=== PATIENT | male | born 1955 | race African-American/Black ===

== ENCOUNTER 2018-02-04 16:14 | Emergency (ER) | payer OTHER ==
--- NOTE | 2018-02-04 17:16 | RAD REPORT ---
EXAM DESCRIPTION: RAD - Chest Pa And Lat (2 Views) - 02/04/2018 5:04 pm CLINICAL HISTORY: Chest pain. COMPARISON: 10/20/2017 FINDINGS: Left upper lobe pulmonary mass is again noted, increased mildly in size since comparative study. The patient has a known history of lung carcinoma. The heart is mildly moderately enlarged. A focal infiltrate typical of pneumonia not seen. Old left posterior sixth rib fracture.
--- NOTE | 2018-02-04 17:28 | ER ---
Nurse's Notes [facility] Name: Kait Anton Age: 62 yrs Sex: Male : 1955 Arrival Date: 02/04/2018 Time: 16:18 Bed 7 Private MD: John He Diagnosis: Dorsalgia Presentation: 02/04 16:22 Presenting complaint: Patient states: I think I have a pinched nerve on my right la1 shoulder area. Transition of care: patient was not received from another setting of care. Onset of symptoms was February 04, 2018. Care prior to arrival: None. 16:22 Method Of Arrival: Wheelchair la1 16:22 Acuity: SEA 4 la1 Historical: - Allergies: 16:23 Neulasta; la1 - PMHx: 16:23 Adenocarcinoma - remission; Diabetes - NIDDM; Hypertension; la1 - Immunization history:: Adult Immunizations up to date. - Social history:: Smoking status: Patient/guardian denies using tobacco. Screenin:25 Abuse screen: Denies threats or abuse. Denies injuries from another. Nutritional jl7 screening: No deficits noted. Tuberculosis screening: No symptoms or risk factors identified. Fall Risk None identified. Assessment: 16:25 General: Appears in no apparent distress. uncomfortable, Behavior is calm, cooperative, jl7 appropriate for age. Pain: Complains of pain in right scapular area Pain radiates to right tricep and right elbow Pain currently is 5 out of 10 on a pain scale. at worst was 9 out of 10 on a pain scale. Quality of pain is described as sharp, Pain began 2-3 days ago. Is intermittent. Neuro: Level of Consciousness is awake, alert, obeys commands, Oriented to person, place, time, situation. Cardiovascular: Patient's skin is warm and dry. Respiratory: Airway is patent Respiratory effort is even, unlabored, Respiratory pattern is regular, symmetrical. Derm: Skin is dry, Skin is normal, Skin temperature is warm. Musculoskeletal: Range of motion: limited in right shoulder. 17:30 Reassessment: Dr. Correa at bedside discussing plan of care. jl7 Vital Signs: 16:23 BP 187 / 100; Pulse 77; Resp 16; Temp 98.3; Pulse Ox 100% on R/A; Weight 127.01 kg; la1 Height 6 ft. 2 in. (187.96 cm); 17:21 BP 182 / 88; Pulse 79; Resp 16; Pulse Ox 98% on R/A; jl7 16:23 Body Mass Index 35.95 (127.01 kg, 187.96 cm) la1 ED Course: 16:18 Patient arrived in ED. mr 16:18 John He DO is Private Physician. mr 16:23 Triage completed. la1 16:23 Arm band placed on left wrist. la1 16:24 Jack Howe, DORITA is Primary Nurse. jl7 16:24 Cornelio Correa MD is Attending Physician. gs 16:25 Patient has correct armband on for positive identification. Bed in low position. Call jl7 light in reach. Side rails up X 1. Pulse ox on. NIBP on. 17:01 X-ray completed. Patient tolerated procedure well. la2 17:04 Chest Pa And Lat (2 Views) XRAY In Process Unspecified. EDMS 17:27 David Grey MD is Referral Physician. 17:30 No provider procedures requiring assistance completed. Patient did not have IV access jl7 during this emergency room visit. Administered Medications: 17:34 Not Given (Patient Refused): [place] 5 mg-325 mg 1 tabs PO once jl7 Outcome: 17:27 Discharge ordered by . 17:37 Discharged to home ambulatory. jl7 17:37 Condition: stable 17:37 Discharge instructions given to patient, family, Instructed on discharge instructions, follow up and referral plans. medication usage, Demonstrated understanding of instructions, follow-up care, medications, Prescriptions given X 1. 17:37 Patient left the ED. jl7 Signatures: Dispatcher [employer] EDOR Tammie Gibbs Lee, RN RN la1 Jack Howe, DORITA KEVIN jl7 Cornelio Correa MD MD Aida Deluca la2
--- NOTE | 2018-02-04 17:28 | EDPHYS ---
Physician Documentation [facility] Name: Kait Anton Age: 62 yrs Sex: Male : 1955 Arrival Date: 02/04/2018 Time: 16:18 Bed 7 Private MD: John He ED Physician Cornelio Correa HPI: 02/04 17:21 This 62 yrs old Black Male presents to ER via Wheelchair with complaints of Shoulder gs Pain, Arm Pain. 17:21 The patient or guardian complains of pain. right scapular area. Context: The problem gs was sustained at home, resulted from repetitive motion, lifting, The patient reports no decreased range of motion. The patient reports no obvious deformity. Onset: The symptoms/episode began/occurred 4 day(s) ago. Modifying factors: the symptoms are alleviated by lying down, The symptoms are aggravated by movement. Associated signs and symptoms: Pertinent negatives: chest pain, diaphoresis, dyspnea, neck pain, tingling. Severity of symptoms: At their worst the symptoms were moderate, in the emergency department the symptoms are unchanged. The patient has experienced similar episodes in the past, a few times. Historical: - Allergies: 16:23 Neulasta; la1 - PMHx: 16:23 Adenocarcinoma - remission; Diabetes - NIDDM; Hypertension; la1 - Immunization history:: Adult Immunizations up to date. - Social history:: Smoking status: Patient/guardian denies using tobacco. ROS: 17:21 All other systems are negative. gs Exam: 17:21 Eyes: Pupils equal round and reactive to light, extra-ocular motions intact. Lids and gs lashes normal. Conjunctiva and sclera are non-icteric and not injected. Cornea within normal limits. Periorbital areas with no swelling, redness, or edema. ENT: Nares patent. No nasal discharge, no septal abnormalities noted. Tympanic membranes are normal and external auditory canals are clear. Oropharynx with no redness, swelling, or masses, exudates, or evidence of obstruction, uvula midline. Mucous membranes moist. Chest/axilla: Normal chest wall appearance and motion. Nontender with no deformity. No lesions are appreciated. Cardiovascular: Regular rate and rhythm with a normal S1 and S2. No gallops, murmurs, or rubs. Normal PMI, no JVD. No pulse deficits. Respiratory: Lungs have equal breath sounds bilaterally, clear to auscultation and percussion. No rales, rhonchi or wheezes noted. No increased work of breathing, no retractions or nasal flaring. Abdomen/GI: Soft, non-tender, with normal bowel sounds. No distension or tympany. No guarding or rebound. No evidence of tenderness throughout. Skin: Warm, dry with normal turgor. Normal color with no rashes, no lesions, and no evidence of cellulitis. MS/ Extremity: Pulses equal, no cyanosis. Neurovascular intact. Full, normal range of motion. Neuro: Awake and alert, GCS 15, oriented to person, place, time, and situation. Cranial nerves II-XII grossly intact. Motor strength 5/5 in all extremities. Sensory grossly intact. Cerebellar exam normal. Normal gait. 17:21 Constitutional: The patient appears alert, awake. 17:21 Back: pain, that is moderate, of the right scapular area, reproduces pain. Vital Signs: 16:23 BP 187 / 100; Pulse 77; Resp 16; Temp 98.3; Pulse Ox 100% on R/A; Weight 127.01 kg; la1 Height 6 ft. 2 in. (187.96 cm); 17:21 BP 182 / 88; Pulse 79; Resp 16; Pulse Ox 98% on R/A; jl7 16:23 Body Mass Index 35.95 (127.01 kg, 187.96 cm) la1 MDM: 16:31 Patient medically screened. gs 17:21 Differential diagnosis: herniated disk, muscle strain, extension of ca. Data reviewed: vital signs, nurses notes. Response to treatment: the patient's symptoms have markedly improved after treatment, and as a result, I will discharge patient. 02/04 16:32 Order name: Chest Pa And Lat (2 Views) XRAY; Complete Time: 17:17 gs Administered Medications: 17:34 Not Given (Patient Refused): [place] 5 mg-325 mg 1 tabs PO once jl7 Disposition: 02/04/18 17:27 Discharged to Home. Impression: Dorsalgia. - Condition is Stable. - Discharge Instructions: Back Pain, Adult. - Prescriptions for Prednisone 20 mg Oral Tablet - take 1 tablet by ORAL route once daily for 5 days; 5 tablet. - Medication Reconciliation Form, Thank You Letter, Antibiotic Education, Prescription Opioid Use form. - Follow up: Private Physician; When: 2 - 3 days; Reason: Re-evaluation by your physician. Follow up: David Grey MD; When: 2 - 3 days; Reason: Re-evaluation by your physician. Signatures: Dispatcher [employer] EDIvan Sandoval RN RN la1 Jack Howe RN RN jl7 Cornelio Correa MD MD
[2018-02-04 17:42] VITALS: TEMP 98.3
[2018-02-04 17:43] VITALS: BP 182/88; O2SAT 98
== END 2018-02-04 17:37 | disposition home or self-care (01) ==
LOC: ER 16:14
DX: M54.9 Dorsalgia, unspecified (principal); I10 Essential (primary) hypertension; X50.9XXA Other and unspecified overexertion or strenuous movements or postures, initial encounter; Y93.89 Activity, other specified; Y92.009 Unspecified place in unspecified non-institutional (private) residence as the place of occurrence of the external cause; Z88.8 Allergy status to other drugs, medicaments and biological substances
CPT/HCPCS: 71046; 99283

== ENCOUNTER 2019-12-10 10:37 | Observation (INO) | payer OTHER ==
--- OUTSIDE RECORDS SUMMARY | 2019-12-10 10:39 | XMS REPORT ---
:1955 [facility] Address [address] [place] [address] Dr. Quiñones [address] [place] [id number] Care Team Providers Name Role Phone Unavailable Unavailable Unavailable Problems This patient has no known problems. Allergies, Adverse Reactions, Alerts This patient has no known allergies or adverse reactions. Medications This patient has no known medications.
[2019-12-10] MEDS ORDERED: KETOROLAC 30 MG/ML INJ ONE (11:49)
[2019-12-10] MEDS ORDERED: NA CHLORIDE 0.9% 500 ML ONE (11:49)
[2019-12-10 12:14] LABS: Absolute Lymphocytes (CBC) 1.5 K/uL (0.7-4.9); Basophils % 0.4 % (0-1.3); Hematocrit 44.9 % (39.6-49.0); Lymphocytes % 10.8 % (15.3-44.8); RBC Red Blood Cell Count 5.22 M/uL (4.33-5.43)
--- NOTE | 2019-12-10 12:15 | RAD REPORT ---
EXAM DESCRIPTION: RAD - Chest Single View - 12/10/2019 11:47 am CLINICAL HISTORY: COUGH, known left-side lung carcinoma COMPARISON: Chest Pa And Lat (2 Views) dated 02/04/2018; Thorax W/ Con dated 09/12/2019 TECHNIQUE: AP portable chest image was obtained 12/10/2019 11:47 am . FINDINGS: Chronic interstitial pattern present in the right lung field. No acute right lung parenchy mal process. Trachea remains in the midline. Left hemithorax volume reduction is present similar to t he CT study. There is irregular parenchymal stranding in the upper left lung field extending from the aortic arch level to the lateral pleural margin. These findings are not clearly different from garrett rison. No acute finding in the left lung base. Heart size is normal. Right-side vasculature within normal limits. Left-side vasculature obscured by chronic pleural and parenchymal changes. Elevated left mainstem bronchus is related to surgery. No m easurable pleural effusion and no pneumothorax. No acute bony abnormality seen. No acute aortic findi ngs suspected. IMPRESSION: Chronic left-side pleural and parenchymal changes similar to September 2019 CT imaging. No acute findings seen.
[2019-12-10 12:18] LABS: Protime INR 1.13
[2019-12-10 12:31] LABS: Albumin 3.2 g/dL (3.4-5.0); Bilirubin Direct 0.2 mg/dL (0-0.2); Bilirubin Total 0.8 mg/dL (0.2-1.0); Potassium 4.2 mmol/L (3.5-5.1); Protein, Total 7.8 g/dL (6.4-8.2); Troponin (Emerg Dept Use Only) 0.11 ng/mL (0.0-0.045)
--- NOTE | 2019-12-10 13:34 | EDPHYS ---
Physician Documentation [facility] Name: Kait Anton Age: 64 yrs Sex: Male : 1955 Arrival Date: 12/10/2019 Time: 10:39 Bed 19 Private MD: Sera Coburn ED Physician Jose Delgado HPI: 12/10 13:36 This 64 yrs old Black Male presents to ER via Ambulatory with complaints of pneumonia. kdr 13:36 The patient or guardian reports difficulty breathing, flu symptoms, arthralgias, kdr low-grade fever, myalgias, no appetite. Onset: The symptoms/episode began/occurred gradually, 3 day(s) ago. Modifying factors: The symptoms are alleviated by nothing. the symptoms are aggravated by activity. 17:03 Associated signs and symptoms: Pertinent positives: nausea, General malaise. Severity kdr of symptoms: At their worst the symptoms were mild moderate just prior to arrival, in the emergency department the symptoms are unchanged. The patient has not experienced similar symptoms in the past. The patient has not recently seen a physician. The patient is feeling poorly in general without focal c/o. He is concerned that he may have pneumonia. He has had a lobe-ectomy of his left lung and has generalized anterior CP (more right than left).. Historical: - Allergies: 10:45 Neulasta; ch - Home Meds: 10:45 aspirin 81 mg Oral chew once daily [Active]; Azopt 1 % ophthalmic drps 1 drop 3 times ch per day [Active]; Combigan 0.2-0.5 % ophthalmic drop 1 drop every 12 hours [Active]; Lumigan 0.01 % ophthalmic drop [Active]; Metformin Oral [Active]; Metoprolol Tartrate Oral [Active]; valsartan Oral [Active]; - PMHx: 10:45 Adenocarcinoma - remission; Diabetes - NIDDM; Hypertension; lung ca- part of L lung ch rmoved and re grafted; Glaucoma; - PSHx: 10:45 lung; ch - Immunization history:: Adult Immunizations up to date, Flu vaccine is up to date. - Coronavirus screen:: The patient has NOT traveled to [place], [place], or [place] in the past 14 days. The patient has NOT had contact with known/suspected case of Coronavirus?. - Social history:: Smoking status: Patient denies any tobacco usage or history of. Patient uses alcohol, occasionally. - Ebola Screening: : Patient negative for fever greater than or equal to 101.5 degrees Fahrenheit, and additional compatible Ebola Virus Disease symptoms Patient denies exposure to infectious person Patient denies travel to an Ebola-affected area in the 21 days before illness onset No symptoms or risks identified at this time. ROS: 17:03 Constitutional: Negative for fever, chills, and weight loss, Eyes: Negative for injury, kdr pain, redness, and discharge, Neck: Negative for injury, pain, and swelling, Cardiovascular: Negative for chest pain, palpitations, and edema, Abdomen/GI: Negative for abdominal pain, nausea, vomiting, diarrhea, and constipation, Back: Negative for injury and pain, : Negative for injury, bleeding, discharge, and swelling, MS/Extremity: Negative for injury and deformity, Skin: Negative for injury, rash, and discoloration, Neuro: Negative for headache, weakness, numbness, tingling, and seizure activity. Psych: Negative for depression, anxiety, suicide ideation, homicidal ideation, and hallucinations, Allergy/Immunology: Negative for hives, rash, and allergies, Endocrine: Negative for neck swelling, polydipsia, polyuria, polyphagia, and marked weight changes, Hematologic/Lymphatic: Negative for swollen nodes, abnormal bleeding, and unusual bruising. 17:03 Respiratory: Positive for cough, with no reported sputum, dyspnea on exertion, shortness of breath, on exertion. Negative for hemoptysis, orthopnea, pleurisy. Exam: 17:03 Constitutional: This is a well developed, well nourished patient who is awake, alert, kdr and in no acute distress. Head/Face: Normocephalic, atraumatic. Eyes: Pupils equal round and reactive to light, extra-ocular motions intact. Lids and lashes normal. Conjunctiva and sclera are non-icteric and not injected. Cornea within normal limits. Periorbital areas with no swelling, redness, or edema. Neck: Trachea midline, no thyromegaly or masses palpated, and no cervical lymphadenopathy. Supple, full range of motion without nuchal rigidity, or vertebral point tenderness. No Meningismus. Chest/axilla: Normal chest wall appearance and motion. Nontender with no deformity. No lesions are appreciated. Cardiovascular: Regular rate and rhythm with a normal S1 and S2. No gallops, murmurs, or rubs. Normal PMI, no JVD. No pulse deficits. Respiratory: Lungs have equal breath sounds bilaterally, clear to auscultation and percussion. No rales, rhonchi or wheezes noted. No increased work of breathing, no retractions or nasal flaring. Abdomen/GI: Soft, non-tender, with normal bowel sounds. No distension or tympany. No guarding or rebound. No evidence of tenderness throughout. Back: No spinal tenderness. No costovertebral tenderness. Full range of motion. Skin: Warm, dry with normal turgor. Normal color with no rashes, no lesions, and no evidence of cellulitis. MS/ Extremity: Pulses equal, no cyanosis. Neurovascular intact. Full, normal range of motion. Neuro: Awake and alert, GCS 15, oriented to person, place, time, and situation. Cranial nerves II-XII grossly intact. Motor strength 5/5 in all extremities. Sensory grossly intact. Cerebellar exam normal. Normal gait. Psych: Awake, alert, with orientation to person, place and time. Behavior, mood, and affect are within normal limits. Vital Signs: 10:45 BP 106 / 64; Pulse 89; Resp 16; Temp 99.6; Pulse Ox 98% on R/A; Weight 130.18 kg; ch Height 6 ft. 2 in. (187.96 cm); Pain 9/10; 12:00 BP 108 / 68; Pulse 84; Resp 17; Pulse Ox 94% on R/A; bp 12:41 BP 94 / 65; Pulse 80; Resp 14; Pulse Ox 98% ; bp 13:57 BP 117 / 52; Pulse 78; Resp 16; Pulse Ox 97% ; bp 15:09 BP 106 / 61; Pulse 79; Resp 16; Pulse Ox 94% ; bp 15:46 BP 112 / 71; Pulse 83; Resp 16; Pulse Ox 95% ; bp 10:45 Body Mass Index 36.85 (130.18 kg, 187.96 cm) ch MDM: 13:33 Patient medically screened. kdr 17:03 Data reviewed: vital signs, nurses notes, lab test result(s), radiologic studies. kdr Counseling: I had a detailed discussion with the patient and/or guardian regarding: the historical points, exam findings, and any diagnostic results supporting the discharge/admit diagnosis, lab results, radiology results, the need for further work-up and treatment in the hospital. 12/10 11:22 Order name: Amylase, Serum kdr 12/10 11:22 Order name: Basic Metabolic Panel kdr 12/10 11:22 Order name: Blood Culture Adult (2) kdr 12/10 11:22 Order name: CBC with Diff kdr 12/10 11:22 Order name: Ckmb kdr 12/10 11:22 Order name: CPK kdr 12/10 11:22 Order name: Lactate kdr 12/10 11:22 Order name: LFT's kdr 12/10 11:22 Order name: Lipase kdr 12/10 11:22 Order name: Procalcitonin kdr 12/10 11:22 Order name: Protime (+inr) kdr 12/10 11:22 Order name: Ptt, Activated kdr 12/10 11:22 Order name: Troponin (emerg Dept Use Only) kdr 12/10 11:14 Order name: CXR XRAY kdr 12/10 12:16 Order name: CBC with Automated Diff; Complete Time: 12:45 EDMS 12/10 12:19 Order name: RAD; Complete Time: 12:45 EDMS 12/10 12:23 Order name: Protime (+INR); Complete Time: 12:45 EDMS 12/10 12:23 Order name: PTT, Activated Partial Thromb; Complete Time: 12:45 EDMS 12/10 12:31 Order name: Basic Metabolic Panel; Complete Time: 12:45 EDMS 12/10 12:32 Order name: Liver (Hepatic) Function; Complete Time: 12:45 EDMS 12/10 12:32 Order name: Creatine Phosphokinase; Complete Time: 12:45 EDMS 12/10 12:32 Order name: CKMB Creatine Kinase MB; Complete Time: 12:45 EDMS 12/10 12:32 Order name: Troponin (Emerg Dept Use Only); Complete Time: 12:45 EDMS 12/10 12:32 Order name: Amylase Level; Complete Time: 12:45 EDMS 12/10 12:32 Order name: Lipase; Complete Time: 12:45 EDMS 12/10 12:35 Order name: Lactate; Complete Time: 12:45 EDMS 12/10 12:48 Order name: Procalcitonin; Complete Time: 13:03 EDMS 12/10 13:56 Order name: Flu bp 12/10 14:40 Order name: Influenza Screen (A EDWI 12/10 11:22 Order name: Accucheck; Complete Time: 12:06 kdr 12/10 11:22 Order name: Cardiac monitoring; Complete Time: 12:06 kdr 12/10 11:22 Order name: EKG - Nurse/Tech; Complete Time: 12:06 kdr 12/10 11:22 Order name: IV Saline Lock - Large Bore; Complete Time: 12:06 kdr 12/10 11:22 Order name: Labs collected and sent; Complete Time: 12:05 kdr 12/10 11:22 Order name: O2 Per Protocol; Complete Time: 12:05 kdr 12/10 11:22 Order name: O2 Sat Monitoring; Complete Time: 12:05 kdr Administered Medications: 12:00 Drug: NS 0.9% 500 ml Route: IV; Rate: bolus; Site: right antecubital; bp 12:42 Follow up: IV Status: Completed infusion; IV Intake: 500ml bp 12:00 Drug: TORadol - Ketorolac 15 mg Route: IVP; Site: right antecubital; bp 12:42 Follow up: Response: Pain is decreased bp 14:04 Drug: Aspirin Chewable Tablet 324 mg Route: PO; bp Disposition: 12/10/19 13:33 Hospitalization ordered by Coy Kumar for Observation. Preliminary diagnosis are Weakness, Shortness of breath, Malaise and fatigue, Non-ST elevation (NSTEMI) myocardial infarction. - Bed requested for Telemetry/MedSurg (observation). - Status is Observation. bp - Condition is Fair. - Problem is new. - Symptoms are unchanged. Signatures: Dispatcher [employer] [facility] Cheryl Hahn RN Sara Engel ch RN Jose Crooks MD MD kdr Peltier, Brian, RN RN bp Corrections: (The following items were deleted from the chart) 13:41 11:23 UA MICROSCOPIC+U.LAB.BRZ ordered. [facility] 13:48 13:33 Hospitalization Ordered by Coy Kumar for Observation. Preliminary diagnosis kdr is Weakness; Shortness of breath; Malaise and fatigue. Bed requested for Telemetry/MedSurg (observation). Status is Observation. Condition is Fair. Problem is new. Symptoms are unchanged. kdr 15:33 13:48 12/10/2019 13:33 Hospitalization Ordered by Coy Kumar for Observation. dw Preliminary diagnosis is Weakness; Shortness of breath; Malaise and fatigue; Non-ST elevation (NSTEMI) myocardial infarction. Bed requested for Telemetry/MedSurg (observation). Status is Observation. Condition is Fair. Problem is new. Symptoms are unchanged. kdr 16:30 15:33 12/10/2019 13:33 Hospitalization Ordered by Coy Kumar for Observation. bp Preliminary diagnosis is Weakness; Shortness of breath; Malaise and fatigue; Non-ST elevation (NSTEMI) myocardial infarction. Bed requested for Telemetry/MedSurg (observation). Status is Observation. Condition is Fair. Problem is new. Symptoms are unchanged. dw
--- NOTE | 2019-12-10 13:34 | ER ---
Nurse's Notes [facility] Name: Kait Anton Age: 64 yrs Sex: Male : 1955 Arrival Date: 12/10/2019 Time: 10:39 Bed 19 Private MD: Sera Coburn Diagnosis: Weakness;Shortness of breath;Malaise and fatigue;Non-ST elevation (NSTEMI) myocardial infarction Presentation: 12/10 10:42 Presenting complaint: Patient states: sob, congestion, cough, sweats, fevers on and ch off. feels like I have pneumonia. hurts when I cough. Transition of care: patient was not received from another setting of care. Onset of symptoms was December 07, 2019. Risk Assessment: Do you want to hurt yourself or someone else? Patient reports no desire to harm self or others. Initial Sepsis Screen: Does the patient meet any 2 criteria? No. Patient's initial sepsis screen is negative. Does the patient have a suspected source of infection? No. Patient's initial sepsis screen is negative. Care prior to arrival: Medication(s) given: day quill and ny quill. 10:42 Method Of Arrival: Ambulatory 10:42 Acuity: SEA 3 ch Triage Assessment: 10:45 General: Appears in no apparent distress. uncomfortable, Behavior is calm, cooperative, ch appropriate for age. Pain: Complains of pain in body aches Pain currently is 9 out of 10 on a pain scale. Historical: - Allergies: 10:45 Neulasta; ch - Home Meds: 10:45 aspirin 81 mg Oral chew once daily [Active]; Azopt 1 % ophthalmic drps 1 drop 3 times ch per day [Active]; Combigan 0.2-0.5 % ophthalmic drop 1 drop every 12 hours [Active]; Lumigan 0.01 % ophthalmic drop [Active]; Metformin Oral [Active]; Metoprolol Tartrate Oral [Active]; valsartan Oral [Active]; - PMHx: 10:45 Adenocarcinoma - remission; Diabetes - NIDDM; Hypertension; lung ca- part of L lung ch rmoved and re grafted; Glaucoma; - PSHx: 10:45 lung; ch - Immunization history:: Adult Immunizations up to date, Flu vaccine is up to date. - Coronavirus screen:: The patient has NOT traveled to [place], [place], or [place] in the past 14 days. The patient has NOT had contact with known/suspected case of Coronavirus?. - Social history:: Smoking status: Patient denies any tobacco usage or history of. Patient uses alcohol, occasionally. - Ebola Screening: : Patient negative for fever greater than or equal to 101.5 degrees Fahrenheit, and additional compatible Ebola Virus Disease symptoms Patient denies exposure to infectious person Patient denies travel to an Ebola-affected area in the 21 days before illness onset No symptoms or risks identified at this time. Screenin:45 Abuse screen: Denies threats or abuse. Denies injuries from another. Nutritional bp screening: No deficits noted. Tuberculosis screening: No symptoms or risk factors identified. Fall Risk None identified. Assessment: 10:45 General: SEE TRIAGE NOTE. bp 12:00 Reassessment: PT STATES NO RELIEF OF S/S. VS STABLE ON MONITOR, IVF INFUSING, RESULTS bp PENDING FROM LABS. 13:15 Reassessment: POSITIVE TROPONIN NOTED ON LAB WORK. MD NOTIFIED. PT DENIES CHEST PAIN. bp 13:57 Reassessment: MD AT B/S, ADMIT INITIATED. VS STABLE ON MONITOR. bp 15:09 Reassessment: ADMIT IN PROCESS. PT SEEN BY ADMIT MD. ALL CURRENT ORDERS COMPLETED. bp Vital Signs: 10:45 BP 106 / 64; Pulse 89; Resp 16; Temp 99.6; Pulse Ox 98% on R/A; Weight 130.18 kg; ch Height 6 ft. 2 in. (187.96 cm); Pain 9/10; 12:00 BP 108 / 68; Pulse 84; Resp 17; Pulse Ox 94% on R/A; bp 12:41 BP 94 / 65; Pulse 80; Resp 14; Pulse Ox 98% ; bp 13:57 BP 117 / 52; Pulse 78; Resp 16; Pulse Ox 97% ; bp 15:09 BP 106 / 61; Pulse 79; Resp 16; Pulse Ox 94% ; bp 15:46 BP 112 / 71; Pulse 83; Resp 16; Pulse Ox 95% ; bp 10:45 Body Mass Index 36.85 (130.18 kg, 187.96 cm) ED Course: 10:39 Patient arrived in ED. as 10:40 Sera Coburn MD is Private Physician. as 10:43 Triage completed. 10:45 Jose Delgado MD is Attending Physician. kdr 10:45 Arm band placed on left wrist. Patient placed in an exam room, on a stretcher. ch 10:45 Patient has correct armband on for positive identification. Bed in low position. Call bp light in reach. Side rails up X2. Adult w/ patient. 11:12 Ilya Sun, RN is Primary Nurse. bp 11:46 X-ray completed. Portable x-ray completed in exam room. Patient tolerated procedure md1 well. 12:00 Inserted saline lock: 20 gauge in right antecubital area, using aseptic technique. bp Blood collected. 12:28 EKG done, by cardiopulmonary technician. reviewed by Jose Delgado MD. at1 13:19 CBC with Diff Sent. bp 13:19 Blood Culture Adult (2) Sent. bp 13:19 Amylase, Serum Sent. bp 13:19 Basic Metabolic Panel Sent. bp 13:19 Ptt, Activated Sent. bp 13:20 Protime (+inr) Sent. bp 13:20 Ckmb Sent. bp 13:20 CPK Sent. bp 13:21 Procalcitonin Sent. bp 13:21 Lipase Sent. bp 13:21 LFT's Sent. bp 13:21 Lactate Sent. bp 13:21 Troponin (emerg Dept Use Only) Sent. bp 13:32 Coy Kumar is Hospitalizing Provider. kdr 14:04 Flu Sent. bp 15:34 No provider procedures requiring assistance completed. Patient admitted, IV remains in bp place. Administered Medications: 12:00 Drug: NS 0.9% 500 ml Route: IV; Rate: bolus; Site: right antecubital; bp 12:42 Follow up: IV Status: Completed infusion; IV Intake: 500ml bp 12:00 Drug: TORadol - Ketorolac 15 mg Route: IVP; Site: right antecubital; bp 12:42 Follow up: Response: Pain is decreased bp 14:04 Drug: Aspirin Chewable Tablet 324 mg Route: PO; bp Intake: 12:42 IV: 500ml; Total: 500ml. bp Outcome: 13:33 Decision to Hospitalize by Provider. kdr 15:45 Admitted to Tele accompanied by tech, family with patient, via wheelchair, room 204, bp with chart, Report called to ANN-MARIE RN 15:45 Condition: stable 15:45 Instructed on the need for admit. 16:30 Patient left the ED. bp Signatures: Cheryl Hahn RN RN ch Jose Delgado MD MD [facility] Danya Huggins Amanda, visual merchandising specialist EKG Tat1 Ilya Sun RN RN bp Mary Elizabeth md1 Corrections: (The following items were deleted from the chart) 12:07 12:00 Reassessment: PT STATES NO RELIEF OF S/S. VS STABLE ON MONITOR, IVF INFUSING, bp RESULTS PENDING FROM LABS Patient denies pain at this time. bp
[2019-12-10] MEDS ORDERED: ASPIRIN 81 MG CHEWABLE TABLET ONE (13:58)
--- NOTE | 2019-12-10 15:37 | P.HP ---
Certification for Inpatient Patient admitted to: Observation With expected LOS: <2 Midnights Practitioner: I am a practitioner with admitting privileges, knowledge of patient current condition, hospital course, and medical plan of care. Services: Services provided to patient in accordance with Admission requirements found in Title 42 Section 412.3 of the Code of Federal Regulations Patient History Date of Service: 12/10/19 Reason for admission: Cough, general body pains History of Present Illness: [age]-year-old gentleman with a history of lung cancer status post left lung resection, chemotherapy and radiation therapy, now declared in remission presented to the ED with a complaint of generalized body pains, fever, chills, runny nose and flu-like symptoms. He also reports chest pain, pleuritic in nature and worse with cough. His chest x-ray in the ED demonstrated no acute disease. His troponin mildly elevated. EKG demonstrated no acute ischemic changes. The patient denies any history of coronary artery disease. He stated he is seen Dr. Pelletier and have undergone stress test in the past which came back negative. He has also had elevated troponin in the past. Patient was not requiring oxygen and was saturating well on room air. Patient is placed under observation for further management of flu-like symptoms, possible infective bronchitis and also rule out ACS. Allergies pegfilgrastim [From Neulasta] Allergy (Unverified 01/20/17 17:18) Unknown Home Medications: Aspirin [Aspirin EC 81 MG] 81 mg PO DAILY 07/13/16 Bimatoprost [Lumigan Opthalmic Drops] 25 drops EACH EYE BID 07/13/16 Brimonidine Tartrate/Timolol [Combigan 0.2%-0.5% Eye Drops] 10 ml EACH EYE BID 07/13/16 Metformin HCl [Glucophage] 500 mg PO BIDWM 07/13/16 Valsartan/Hydrochlorothiazide [Valsartan-Hctz 320-12.5 mg Tab] 1 each PO DAILY 07/13/16 Atorvastatin Calcium [Lipitor] 10 mg PO DAILY 09/20/16 Brinzolamide [Azopt] 1 drop EACH EYE BID 09/20/16 - Past Medical/Surgical History Diabetic: Yes -: glaucoma, niddm, htn, smoker, -: Lung cancer status post lung resection. -: prostate -: tonsilectomy -: Left lung resection. - Family History Mother -: Hypertension Notes: Colesterol, blood, Cloth Father -: Hypertension, Cancer - Social History Smoking Status: Former smoker Alcohol use: Yes CD- Drugs: No Caffeine use: Yes Review of Systems Other: General: No unintentional weight loss. Eyes: No eye discharge, CVS: No chest pain, no palpitation, no lightheadedness. GI: No abdominal pain, no nausea, no vomit, no constipation, no diarrhea. Genitourinary: No dysuria, no urinary frequency, no incontinence, no hematuria. Musculoskeletal: No joint pains, or joint swelling, no gait instability. Neurology: No headache, no asymmetric weakness, no problem with swallowing. Except as documented, all other systems reviewed and negative. Physical Examination - Physical Exam General: Alert, In no apparent distress, Oriented x3 HEENT: Mucous membr. moist/pink, Sclerae nonicteric Neck: Supple, JVD not distended Respiratory: Clear to auscultation bilaterally, Expiratory wheezes (Mild expiratory wheezes) Cardiovascular: No edema, Regular rate/rhythm, Normal S1 S2 Capillary refill: <2 Seconds Gastrointestinal: Normal bowel sounds, Soft and benign, Non-distended, No tenderness Musculoskeletal: No swelling, No erythema Integumentary: No rashes, No erythema Neurological: Normal speech, Normal strength at 5/5 x4 extr - Studies Laboratory Data (last 24 hrs) 12/10/19 12:00: PT 13.3 H, INR 1.13, APTT 35.1 12/10/19 12:00: WBC 14.2 H, Hgb 14.5, Hct 44.9, Plt Count 149 L 12/10/19 12:00: Sodium 140, Potassium 4.2, BUN 10, Creatinine 1.60 H, Glucose 173 H, Total Bilirubin 0.8, AST 12 L, ALT 28, Alkaline Phosphatase 92, Amylase 70, Lipase 73 Microbiology Data (last 24 hrs): 12/10/19 14:00 Nasopharnyx Influenza Type A Antigen Screen - Final 12/10/19 14:00 Nasopharnyx Influenza Type B Antigen Screen - Final Assessment and Plan - Problems (Diagnosis) (1) Acute bronchiolitis due to other infectious organisms Current Visit: Yes Status: Acute (2) Elevated troponin Current Visit: Yes Status: Acute (3) DM type 2 (diabetes mellitus, type 2) Current Visit: Yes Status: Acute (4) Acute renal failure Current Visit: Yes Status: Acute (5) Acute viral syndrome Current Visit: Yes Status: Acute - Plan Place under observation. I suspect elevated troponin is related to cardiac stress from acute viral syndrome Trend troponin Scheduled bronchodilators Oral prednisone IV Rocephin and Zithromax for infective bronchitis. Pain management as needed. Manage blood sugar with insulin sliding scale. - Advance Directives Does patient have a Living Will: No Does patient have a Durable POA for Healthcare: No
[2019-12-10] MEDS: INSULIN -REGULAR HUMAN 50 UNIT/0.5 ML ML SQ SCH ×2 (17:28→20:00)
[2019-12-10] MEDS ORDERED: ONDANSETRON 4 MG/2 ML VIAL IV PRN (17:28)
[2019-12-10] MEDS ORDERED: ACETAMINOPHEN 500 MG TAB PO PRN (17:28)
[2019-12-10 17:29] VITALS: BMI 36.8
[2019-12-10] MEDS: HEPARIN 5000 UNIT/ML 1 ML VIAL SQ SCH (17:58)
[2019-12-10] MEDS: CEFTRIAXONE/SWI 1gm 1 GM/10 ML SYR IVP SCH (17:58)
[2019-12-10] MEDS: AZITHROMYCIN IV 500 MG in NA CHLORIDE 0.9% 250 ML IVPB SCH (17:58)
[2019-12-10 18:46] LABS: Thyroid Stimulating Hormone 1.2 uIU/mL (0.360-3.740); Troponin I 0.09 ng/mL (0.0-0.045)
[2019-12-10] MEDS ORDERED: PNEUMOCOCCAL VACCINE 0.5 ML IMVAC ONE (21:00)
[2019-12-10] MEDS: ALBUTEROL 2.5 MG/3 ML NEB SOL NEB SCH (22:00)
[2019-12-10] MEDS: IPRATROPIUM BROM 0.5MG/2.5ML NEB SCH (22:00)
[2019-12-11] MEDS: HEPARIN 5000 UNIT/ML 1 ML VIAL SQ SCH ×2 (00:15→08:47)
[2019-12-11 00:56] LABS: Urine Appearance CLOUDY; Urine Blood NEGATIVE (NEG); Urine Color ORANGE; Urine Glucose NEGATIVE (NEG); Urine Protein 2+ (NEG); Urine Specific Gravity >=1.030 (1.005-1.030); Urine pH 5.5 (5.0-7.0)
[2019-12-11 01:01] LABS: Urine Microscopic Reflex ORDER UMIC
[2019-12-11 01:07] LABS: Urine Bilirubin NEGATIVE (NEG)
[2019-12-11] MEDS: IPRATROPIUM BROM 0.5MG/2.5ML NEB SCH ×3 (02:23→14:32)
[2019-12-11] MEDS: ALBUTEROL 2.5 MG/3 ML NEB SOL NEB SCH ×3 (02:23→14:32)
[2019-12-11 02:24] LABS: Calcium Oxalate Crystals- Ur FEW (NONE SEEN); Urine Bacteria 20-50 /HPF (NONE SEEN); Urine RBC <5 /HPF (NONE SEEN)
[2019-12-11 02:25] LABS: Urine Culture Reflex Order REFLEXED
[2019-12-11 05:48] LABS: Absolute Lymphocytes (CBC) 1.8 K/uL (0.7-4.9); Basophils % 0.4 % (0-1.3); Hematocrit 42.9 % (39.6-49.0); MPV 9.3 fL (7.6-11.3); RBC Red Blood Cell Count 5.01 M/uL (4.33-5.43)
[2019-12-11 06:13] LABS: Phosphorus 3.8 mg/dL (2.5-4.9)
[2019-12-11] MEDS: INSULIN -REGULAR HUMAN 50 UNIT/0.5 ML ML SQ SCH ×2 (07:30→11:30)
[2019-12-11] MEDS: AZITHROMYCIN IV 500 MG in NA CHLORIDE 0.9% 250 ML IVPB SCH (08:47)
[2019-12-11] MEDS: CEFTRIAXONE/SWI 1gm 1 GM/10 ML SYR IVP SCH (08:47)
[2019-12-11] MEDS ORDERED: predniSONE 20 MG TAB PO SCH (09:00)
--- NOTE | 2019-12-11 12:27 | EKG ---
Test Date: 2019-12-10 Test Time: 12:11:37 Continuity Tester: TERA MEASUREMENT RESULTS: Intervals: Rate: 84 NC: 154 QRSD: 90 QT: 378 QTc: 446 [place]: P: 73 NC: 154 QRS: -3 T: 94 INTERPRETIVE STATEMENTS: Normal sinus rhythm Nonspecific T wave abnormality Abnormal ECG Compared to ECG 12/19/2015 14:09:27 T-wave abnormality now present Left ventricular hypertrophy no longer present Early repolarization no longer present Electronically Signed On 12-11-19 12:26:42 IRON PLASTIC BULLET MAKER by Shade Pelletier
--- NOTE | 2019-12-11 12:33 | ECHO ---
HEIGHT: 6 ft 2 in WEIGHT: 287 lb 0 oz DATE OF STUDY: 12/11/[address]: nereida berg 2-DIMENSIONAL: YES M.MODE: YES DOPPLER: YES COLOR FLOW: YES TDS: PORTABLE: DEFINITY: BUBBLE STUDY: DIAGNOSIS: ELEVATED TROPONIN CARDIAC HISTORY: CATHERIZATION: NO SURGERY: NO PROSTHETIC VALVE: NO PACEMAKER: NO MEASUREMENTS (cm) DIASTOLIC (NORMALS) SYSTOLIC (NORMALS) IVSd 1.5 (0.6-1.2) LA Diam 4.6 (1.9-4.0) LVEF 60% LVIDd 4.2 (3.5-5.7) LVIDs 2.9 (2.0-3.5) %FS 32% LVPWd 1.5 (0.6-1.2) Ao Diam 3.1 (2.0-3.7) 2 DIMENSIONAL ASSESSMENT: RIGHT ATRIUM: NORMAL LEFT ATRIUM: DILATED RIGHT VENTRICLE: NORMAL LEFT VENTRICLE: LEFT VENTRICULAR HYPERTROPHY TRICUSPID VALVE: NORMAL MITRAL VALVE: NORMAL PULMONIC VALVE: NORMAL AORTIC VALVE: SCLEROSIS PERICARDIAL EFFUSION: NONE AORTIC ROOT: NORMAL LEFT VENTRICULAR WALL MOTION: NORMAL DOPPLER/COLOR FLOW: MILD AORTIC AND MITRAL REGURGITATION. NO AORTIC STENOSIS. IMPAIRED LEFT VENTRICULAR RELAXATION. COMMENTS: NORMAL LEFT VENTRICULAR EJECTION FRACTION. DILATED LEFT ATRIUM. LEFT VENTRICULAR HYPERTROPHY. AORTIC SCLEROSIS WITH NO AORTIC STENOSIS. MILD AORTIC AND MITRAL REGURGITATION. TECHNOLOGIST: CARLOS RODRIGUEZ
[2019-12-11 13:16] VITALS: BP 127/68; TEMP 97.3
[2019-12-11 16:05] VITALS: O2SAT 96
[2019-12-11] MEDS ORDERED: TIMOLOL EACH EYE SCH (21:00)
[2019-12-11] MEDS ORDERED: HOME MED 1 EA UNK (Brinzolamide [Azopt] 1 DROP) EACH EYE SCH (21:00)
[2019-12-11] MEDS ORDERED: ATORVASTATIN 10 MG TAB PO SCH (21:00)
[2019-12-11] MEDS ORDERED: BIMATOPROST OPHTH DROPS/2.5 ML BTL OPTH SCH (21:00)
[2019-12-11] MEDS ORDERED: BRIMONIDINE TARTRATE EACH EYE SCH (21:00)
--- NOTE | 2019-12-12 02:04 | DS ---
Date of Discharge: 12/11/2019 Consultants: None. Discharge Diagnoses: 1.Acute bronchitis. 2.Elevated troponin level, no acute coronary syndrome. 3.Diabetes mellitus type 2, hzs-wzgqgrn-xjiojiwez with hyperglycemia. 4.Acute kidney injury, resolved. 5.Acute viral syndrome. Hospital Course: Patient is a 64-year-old gentleman with past medical history of lung cancer status post left lung resection, chemotherapy, radiation therapy in remission, comes in with cough, generali zed body pains, flu-like symptoms. The patient was admitted to the hospital for bronchitis and was s tarted on IV antibiotics. Workup revealed elevated troponin level 0.11, 0.09, and 0.10, likely due t o demand mismatch. His kidney function was slightly elevated at 1.6, improved with IV hydration to 1 .12. White blood cell count improved with IV antibiotics. His cultures remained negative to date. Flu screen was also negative. Patient's echocardiogram showed normal EF, did show some left ventricu lar hypertrophy. He is feeling significantly better. His cough had improved, no further shortness o f breath, chills were also improved. Patient was then discharged home in a stable condition. Activity: As tolerated. Medications: As per medication reconciliation list. Followup: Follow up with primary care physician in 2-3 days, follow up with laser machine operator, Dr. Pelletier in 2 weeks. Return to ER for worsening condition. Diet: Diabetic. Physical Examination: General: Awake, alert, and oriented x3, elderly obese male. CV: S1, S2. Respiratory: Moving air well bilaterally. No wheezing or stridor. Gastrointestinal: Abdomen is soft, nontender, nondistended. Positive bowel sounds. Extremities: No clubbing, cyanosis, or edema. Neurologic: Nonfocal. SA/MODL Voice ID: [id number] Report ID: [id number]
[2019-12-12] MEDS ORDERED: VALSARTAN PO SCH (09:00)
[2019-12-12] MEDS ORDERED: hydroCHLOROthiazide 12.5 MG CAP PO SCH (09:00)
[2019-12-12] MEDS ORDERED: [UNRECOGNIZED DRUG - OTHER] PO SCH (09:00)
[2019-12-12] MEDS ORDERED: VALSARTAN 160 MG TAB PO SCH (09:00)
[2019-12-12] MEDS ORDERED: ASPIRIN EC 81 MG TAB PO SCH (09:00)
[2019-12-12] MEDS ORDERED: HYDROCHLOROTHIAZIDE PO SCH (09:00)
== END 2019-12-11 15:51 | disposition home or self-care (01) ==
LOC: ER 10:37 → ERHOLD 15:21 → 2ND 15:45
PROVIDERS: ADMIT Internal Medicine; ATTEND Family Medicine
DX: J21.8 Acute bronchiolitis due to other specified organisms (principal); N17.9 Acute kidney failure, unspecified; B34.9 Viral infection, unspecified; E11.9 Type 2 diabetes mellitus without complications; I10 Essential (primary) hypertension; H40.9 Unspecified glaucoma; Z85.118 Personal history of other malignant neoplasm of bronchus and lung; Z87.891 Personal history of nicotine dependence
CPT/HCPCS: 96361; 93005; 93306; 87040 ×2; 87088; 87070; 85025 ×2; 87086; 80048 ×2; 36415; 82150; 83735; 82550; 87205; 84100; 85610; 82947 ×5; 80076; 83605; 85730; 84443; 84484 ×4; 82553; 83690; 84145; 87804 ×2; 71045; 94640; 94760 ×2; 94762; 96374; 99285; J1644 ×3; J0456; J0696 ×2; J7030; J7040; G0378 ×3; 81003; 81015; J7512

== ENCOUNTER 2020-01-14 07:41 | Day surgery (SDC) | payer OTHER ==
--- OUTSIDE RECORDS SUMMARY | 2020-01-14 07:50 | XMS REPORT | Summary of Care ---
:1955 Author Organization [facility] Address [address] [place] [address] Care Team Providers Name Role Phone John He Primary Care Provider Reagan Duenas MD Unavailable Encounter Details Date Type Department Care Team Description 12/14/2019 Orders Only [facility] Doctor Unassigned, No [address] [facility] [place] [address] [address] [place] [address] Allergies Active Allergy Reactions Severity Noted Date Comments Pegfilgrastim Hives 10/27/2018 documented as of this encounter (statuses as of 12/20/2019) Medications Medication Sig Dispensed Refills Start Date End Date Status amLODIPine 5 mg tablet Take 5 mg by 3 02/02/2017 Active mouth daily. LUMIGAN 0.01 % PUT ONE DROP 3 12/28/2016 Active ophthalmic drops INTO EACH EYE NIGHTLY COMBIGAN 0.2-0.5 % PUT ONE DROP 3 12/28/2016 Active ophthalmic drops INTO BOTH EYES TWICE A DAY AZOPT 1 % ophthalmic 1 DROP IN BOTH 3 12/29/2016 Active suspension drops EYES TWICE A DAY DISPENSE 15ML BOTTLE BRAND MEDICALLY NECESSARY. gabapentin 300 mg TAKE ONE CAPSULE 12 11/29/2016 Active capsule BY MOUTH TWICE A DAY metFORMIN 500 mg tablet TAKE 1 TABLET BY 0 01/31/2017 Active MOUTH TWICE A DAY metoprolol tartrate 50 TAKE 1 TABLET BY 1 12/13/2016 Active mg tablet MOUTH TWICE A DAY valsartan-hydrochlorothi Take 1 tablet by 3 11/29/2016 Active azide 320-25 mg per mouth daily. tablet valsartan 320 mg tablet 0 02/08/2017 Active CIALIS 5 mg tablet TAKE 1 TABLET BY 2 12/10/2016 Active MOUTH ONCE A DAY PRIOR TO ANTICIPATED ACTIVITY, NOT MORE THAN ONCE DAILY tamsulosin 0.4 mg 24 hr Take 1 capsule 30 capsule 0 03/24/2017 Active capsule by mouth daily. ACETAMINOPHEN-CODEINE TAKE 1 TABLET BY 40 tablet 0 04/07/2017 Active 300-30 mg tablet MOUTH EVERY 4 (FOUR) HOURS NEEDED FOR PAIN (SCALE 4-6) OR PAIN (SCALE 7-10). methylPREDNISolone Take 21 tablets 1 Each 0 04/06/2019 Active (MEDROL, ANTOINETTE,) 4 mg by mouth tabletsIndications: S/P SEE-INSTRUCTIONS hip replacement, right . 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 documented as of this encounter Last Filed Vital Signs Not on filedocumented in this encounter Plan of Treatment Health Maintenance Due Date Last Done Comments HEPATITIS C (HCV) SCREEN 1955 DTaP,Tdap,and Td Vaccines (1 - Tdap) 1964 COLONOSCOPY 2003 Zoster Recombinant Vaccine (SHINGRIX) (1 of 2) 2003 Medicare Wellness Visit 2018 PNEUMOCOCCAL VACCINES 65+ (1 of 2 - PCV13) 2018 INFLUENZA VACCINE (#1) 2019 documented as of this encounter Implants Implanted Type Area Recovery Analyst Device Shelf Model / Identifier Expiration Date Serial / Lot Porous Coated Stem Reduced Distal HIP Right: Biomet 02/05/2025 [id number] / Implanted: Qty: 1 on 03/21/2017 by Reagan Duenas MD at [facility] Hip [id number] / [id number] Acetabular Liner HIP Right: Biomet 07/29/2021 [id number] / Implanted: Qty: 1 on 03/21/2017 by Reagan Duenas MD at [facility] Hip [id number] / [id number] Acetabular Screw HIP Right: Biomet 10/12/2026 [id number] / Implanted: Qty: 1 on 03/21/2017 by Reagan Duenas MD at [facility] Hip [id number] / [id number] Acetabular Shell HIP Right: Biomet 01/27/2026 [id number] / Implanted: Qty: 1 on 03/21/2017 by Reagan Duenas MD at [facility] Hip [id number] / [id number] Acetabular Screw HIP Right: Biomet 01/14/2027 [id number] / Implanted: Qty: 1 on 03/21/2017 by Reagan Duenas MD at [facility] Hip [id number] / [id number] Adc [employer] Head 40 Mm - [id number] Right: Biomet 10/27/2026 [id number] / Implanted: Qty: 1 on 03/21/2017 by Reagan Duenas MD at [facility] Hip [id number] / [id number] Adc Neck Adapter -3 - [id number] Right: Biomet 12/17/2026 [id number] / Implanted: Qty: 1 on 03/21/2017 by Reagan Duenas MD at [facility] Hip [id number] / [id number] documented as of this encounter Procedures Procedure Name Priority Date/Time Associated Diagnosis Comments INSURANCE CORRESPONDENCE Routine 12/14/2019 12:01 AM VASC TECH documented in this encounter Results Not on filedocumented in this encounter Insurance Payer Benefit Plan / Subscriber ID Effective Dates Phone Address Type Group [employer]form [id number] 2016-Present Medicare Adv spring HMO documented as of this encounter
--- OUTSIDE RECORDS SUMMARY | 2020-01-14 07:50 | XMS REPORT ---
:1955 Author Organization [facility] Address [address] [place] [address] Dr. Quiñones [address] [place] [address] Care Team Providers Name Role Phone Unavailable Unavailable Unavailable Problems This patient has no known problems. Allergies, Adverse Reactions, Alerts This patient has no known allergies or adverse reactions. Medications This patient has no known medications.
--- OUTSIDE RECORDS SUMMARY | 2020-01-14 07:50 | XMS REPORT | Summary of Care ---
:1955 Author Organization [facility] Address [address] [place] [id number] Care Team Providers Name Role Phone He John Alden Primary Care Provider Reagan Duenas MD Unavailable Reason for Visit Reason Comments LAB WORK Auth/Cert Status Reason Specialty Diagnoses / Procedures Referred By Contact Referred To Contact Phlebotomy Diagnoses S/P hip replacement, right Adc Pob Lab Draw Procedures CBC WITH DIFFERENTIAL Professional [facility] Building [address] [facility] , [address] [place] [address] Encounter Details Date Type Department Care Team Description 12/31/2019 Restaurant Expeditor Visit [facility] Reagan Duenas MD [address] [facility] [place] [address] Status post right Professional Office Pob, Adc Lab Main hip replacement Building Phlebotomy Lab [facility] Building [address] [facility] , [address] [place] [address] Allergies Active Allergy Reactions Severity Noted Date Comments Pegfilgrastim Hives 10/27/2018 documented as of this encounter (statuses as of 12/31/2019) Medications Medication Sig Dispensed Refills Start Date [...] 21 tablets 1 Each 0 04/06/2019 Active (MEDROL ANTOINETTE,) 4 mg by mouth tabletsIndications: S/P SEE-INSTRUCTIONS hip replacement, right . follow package directions azithromycin 250 mg Take 250 mg by 0 12/11/2019 Active tablet mouth daily. cefUROXime 500 mg tablet Take 500 mg by 0 12/11/2019 Active mouth 2 (two) times daily. predniSONE 10 mg tablet Take 10 mg by 0 12/11/2019 Active mouth 2 (two) times daily. amLODIPine 10 mg tablet Take 10 mg by 0 12/14/2019 Active mouth daily. metFORMIN 1,000 mg 0 10/16/2019 Active tablet meloxicam 15 mg tablet 0 11/26/2019 Active methylPREDNISolone Take 21 tablets 1 Each 0 12/31/2019 Active (MEDROL, ANTOINETTE,) 4 mg by mouth tabletsIndications: S/P SEE-INSTRUCTIONS hip replacement, right . 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 documented as of this encounter (statuses as of 12/31/2019) Social History Tobacco Use Types Packs/Day Years [...] of this encounter Implants Implanted Type Area Quality Assurance Representative Device Shelf Model / Identifier Expiration Date Serial / Lot Porous Coated Stem Reduced Distal HIP Right: Biomet 02/05/2025 [id number] / Implanted: Qty: 1 on 03/21/2017 by Reagan Duenas MD at [facility] Hip [id number] / [id number] Acetabular Liner HIP Right: [employer]omet 07/29/2021 [id number] / Implanted: Qty: 1 on 03/21/2017 by Reagan Duenas MD at [facility] Hip [id number] / [id number] Acetabular Screw HIP Right: [employer]omet 10/12/2026 [id number] / Implanted: Qty: 1 on 03/21/2017 by Reagan Duenas MD at [facility] Hip [id number] / [id number] Acetabular Shell HIP Right: [employer]omet 01/27/2026 [id number] / Implanted: Qty: 1 on 03/21/2017 by Reagan Duenas MD at [facility] Hip [id number] / [id number] Acetabular Screw HIP Right: [employer]omet 01/14/2027 [id number] / Implanted: Qty: 1 on 03/21/2017 by Reagan Duenas MD at [facility] Hip [id number] / [id number] Adc [employer] Head 40 Mm - [id number] Right: [employer]omet 10/27/2026 [id number] / Implanted: Qty: 1 on 03/21/2017 by Reagan Duenas MD at [facility] Hip [id number] / [id number] Adc Neck Adapter -3 - [id number] Right: [employer]omet 12/17/2026 [id number] / Implanted: Qty: 1 on 03/21/2017 by Reagan Duenas MD at [facility] Hip [id number] / [id number] documented as of this encounter Results Not on filedocumented in this encounter Visit Diagnoses Diagnosis Status post right hip replacement Hip joint replacement by other means documented in this encounter Insurance Payer Benefit Plan / Subscriber ID Effective Dates Phone Address Type Group [employer] [id number] 2016-Present Medicare Adv spring O documented as of this encounter
--- OUTSIDE RECORDS SUMMARY | 2020-01-14 07:50 | XMS REPORT | Summary of Care ---
:1955 Author Organization [facility] Address [address] [place] [address] Care Team Providers Name Role Phone John He Primary Care Provider Reagan Duenas MD Unavailable Encounter Details Date Type Department Care Team Description 12/31/2019 Orders Only [facility] Doctor Unassigned, No [address] [facility] [place] [address] [address] [place] [address] Allergies Active Allergy Reactions Severity Noted Date [...] filedocumented in this encounter Plan of Treatment Date Type Specialty Care Team Description 12/31/2019 Office Visit Orthopedic Surgery Reagan Duenas MD [address] [place] [phone] Health Maintenance Due Date Last Done Comments HEPATITIS C (HCV) SCREEN 1955 DTaP,Tdap,and Td Vaccines (1 - Tdap) 1964 COLONOSCOPY 2003 Zoster Recombinant Vaccine (SHINGRIX) (1 of 2) 2003 Medicare Wellness Visit 2018 PNEUMOCOCCAL VACCINES 65+ (1 of 2 - PCV13) 2018 INFLUENZA VACCINE (#1) 2019 documented as of this encounter Implants Implanted Type Area Account Receivable Clerk Device Shelf Model / Identifier Expiration Date Serial / Lot Porous Coated Stem Reduced Distal HIP Right: Biomet 02/05/2025 [id number] / Implanted: Qty: 1 on 03/21/2017 by Reagan Duenas MD at [facility] Hip [id number] / [id number] Acetabular Liner HIP Right: Biomet 07/29/2021 [id number] / Implanted: Qty: 1 on 03/21/2017 by Reagan Duenas MD at [facility] Hip [id number] / [id number] Acetabular Screw HIP Right: Biomet 10/12/2026 [id number] / Implanted: Qty: 1 on 03/21/2017 by Reagan Duenas MD at [facility] Hip [id number] / [id number] Acetabular Shell HIP Right: Biomet 01/27/2026 [id number] / Implanted: Qty: 1 on 03/21/2017 by Reagan Duenas MD at [facility] Hip [id number] / [id number] Acetabular Screw HIP Right: Biomet 01/14/2027 [id number] / Implanted: Qty: 1 on 03/21/2017 by Reagan Duenas MD at [facility] Hip [id number] / [id number] Adc [employer]aminc Head 40 Mm - [id number] Right: Biomet 10/27/2026 [id number] / Implanted: Qty: 1 on 03/21/2017 by Reagan Duenas MD at [facility] Hip [id number] / [id number] Adc Neck Adapter -3 - [id number] Right: Biomet 12/17/2026 [id number] / Implanted: Qty: 1 on 03/21/2017 by Reagan Duenas MD at [facility] Hip [id number] / [id number] documented as of this encounter Procedures Procedure Name Priority Date/Time Associated Diagnosis Comments ASSIGNMENT OF BENEFITS Routine 12/31/2019 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
--- OUTSIDE RECORDS SUMMARY | 2020-01-14 07:51 | XMS REPORT | Summary of Care ---
:1955 Author Organization [facility] Address [address] [place] [address] Care Team Providers Name Role Phone John He Primary Care Provider Reagan Duenas MD Unavailable Reason for Referral Radiology Services (Routine) Status Reason Specialty Diagnoses / Referred By Referred To Procedures Contact Contact New Request Diagnostic Diagnoses S/P hip replacement, right Reagan Duenas Radiology Procedures XR HIP 1 VW RIGHT Gloria MD [address] [place] [address] [place] [address] Reason for Visit Reason Comments Follow-up follow up visit on right hip pain s/p DOS:03/21/2017 Auth/Cert Status Reason Specialty Diagnoses / Procedures Referred By Contact Referred To Contact Phlebotomy Diagnoses S/P hip replacement, right Adc Pob Lab Draw Procedures CBC WITH DIFFERENTIAL Professional Office Building [address] [facility] , [address] [place] [address] Encounter Details Date Type Department Care Team Description 12/31/2019 Office Visit [facility] Orthopaedic Reagan Duenas S/P hip replacement, Surgery- Mayi Castro MD right (Primary Dx) [address] [place] [address] [place], [place] [phone] Allergies Active Allergy Reactions Severity Noted Date Comments Pegfilgrastim Hives 10/27/2018 documented as of this encounter (statuses as of 01/02/2020) Medications Medication Sig Dispensed Refills Start Date [...] 21 tablets 1 Each 0 04/06/2019 Active (ANTOINETTE JO,) 4 mg by mouth tabletsIndications: S/P SEE-INSTRUCTIONS [...] as of this encounter (statuses as of 01/02/2020) Active Problems Problem Noted Date 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 documented as of this encounter (statuses as of 01/02/2020) Social History Tobacco Use Types Packs/Day Years [...] of this encounter Last Filed Vital Signs Vital Sign Reading Time Taken Comments Blood Pressure 135/74 12/31/2019 1:37 PM VICTIM ADVOCATE Pulse 68 12/31/2019 1:37 PM VICTIM ADVOCATE Temperature - - Respiratory Rate 18 12/31/2019 1:37 PM VICTIM ADVOCATE Oxygen Saturation - - Inhaled Oxygen Concentration - - Weight 130.6 kg (288 lb) 12/31/2019 1:37 PM VICTIM ADVOCATE Height 188 cm (6' 2") 12/31/2019 1:37 PM VICTIM ADVOCATE Body Mass Index 36.98 12/31/2019 1:37 PM VICTIM ADVOCATE documented in this encounter Progress Notes Reagan Duenas MD - 12/31/2019 2:00 PM CST Kait Anton is a 64 year old male Chief Complaint Patient presents with Follow-up follow up visit on right hip pain s/p DOS:03/21/2017 Vitals: 12/31/19 1337 BP: 135/74 BP Location: Left arm Patient Position: Sitting BP CUFF SIZE: Adult Large Pulse: 68 Resp: 18 Weight: 130.6 kg (288 lb) Height: 74" (188 cm) [id number] - [address] All Vitals taken, allergies and all medications reviewed, fall risk assessed. Pain level 8/10. CHRISTINE NEWELL MA 12/31/2019 1:42 PM Kait Anton is a 64 year old male. Patient complains of pain in his right hip today. Hip Pain The incident occurred more than 1 week ago (03/21/2017). There was no injury mechanism. The pain is present in the right hip. The quality of the pain is described as aching. The pain is at a severity of 4/10. The pain is moderate. The pain has been intermittent since onset. The symptoms are aggravatedby movement and weight bearing. He has tried NSAIDs and rest for the symptoms. The treatment provided mild relief. Allergies Kait is allergic to neulasta [pegfilgrastim]. Medications Outpatient Medications Prior to Visit Medication Sig Dispense Refill amLODIPine 10 mg tablet Take 10 mg by mouth daily. azithromycin 250 mg tablet Take 250 mg by mouth daily. cefUROXime 500 mg tablet Take 500 mg by mouth 2 (two) times daily. meloxicam 15 mg tablet metFORMIN 1,000 mg tablet predniSONE 10 mg tablet Take 10 mg by mouth 2 (two) times daily. methylPREDNISolone (MEDROL, ANTOINETTE,) 4 mg tablets Take 21 tablets by mouth SEE- INSTRUCTIONS. followpackage directions 1 Each 0 ACETAMINOPHEN-CODEINE 300-30 mg tablet TAKE 1 TABLET BY MOUTH EVERY 4 (FOUR ) HOURS NEEDED FORPAIN (SCALE 4-6) OR PAIN (SCALE 7-10). 40 tablet 0 tamsulosin 0.4 mg 24 hr capsule Take 1 capsule by mouth daily. 30 capsule 0 amLODIPine 5 mg tablet Take 5 mg by mouth daily. 3 AZOPT 1 % ophthalmic suspension drops 1 DROP IN BOTH EYES TWICE A DAY DISPENSE 15ML BOTTLE BRANDMEDICALLY NECESSARY. 3 CIALIS 5 mg tablet TAKE 1 TABLET BY MOUTH ONCE A DAY PRIOR TO ANTICIPATED ACTIVITY, NOT MORE THAN ONCE DAILY 2 COMBIGAN 0.2-0.5 % ophthalmic drops PUT ONE DROP INTO BOTH EYES TWICE A DAY 3 gabapentin 300 mg capsule TAKE ONE CAPSULE BY MOUTH TWICE A DAY 12 LUMIGAN 0.01 % ophthalmic drops PUT ONE DROP INTO EACH EYE NIGHTLY 3 metFORMIN 500 mg tablet TAKE 1 TABLET BY MOUTH TWICE A DAY 0 metoprolol tartrate 50 mg tablet TAKE 1 TABLET BY MOUTH TWICE A DAY 1 valsartan 320 mg tablet valsartan-hydrochlorothiazide 320-25 mg per tablet Take 1 tablet by mouth daily. 3 No facility-administered medications prior to visit. Histories Past Medical History: Diagnosis Date COPD, mild DM (diabetes mellitus) Hypertension Past Surgical History: Procedure Laterality Date SEGMENTAL LUNG LOBECTOMY Left TONSILLECTOMY TOTAL HIP ARTHROPLASTY Right 03/21/2017 Surgeon: Reagan Duenas MD; Location: [facility] Social History Socioeconomic History Marital status: Spouse name: Not on file Number of children: Not on file Years of education: Not on file Highest education level: Not on file Occupational History Not on file Social Needs Financial resource strain: Not on file Food insecurity: Worry: Not on file Inability: Not on file Transportation needs: Medical: Not on file Non-medical: Not on file Tobacco Use Smoking status: Never Smoker Smokeless tobacco: Never Used Substance and Sexual Activity Alcohol use: Yes Comment: Occasional Drinker Drug use: No Sexual activity: Not on file Lifestyle Physical activity: Days per week: Not on file Minutes per session: Not on file Stress: Not on file Relationships Social connections: Talks on phone: Not on file Gets together: Not on file Attends voodoo service: Not on file Active member of club or organization: Not on file Attends meetings of clubs or organizations: Not on file Relationship status: Not on file Intimate partner violence: Fear of current or ex partner: Not on file Emotionally abused: Not on file Physically abused: Not on file Forced sexual activity: Not on file Other Topics Concern Not on file Social History Narrative Not on file No family history on file. Review of Systems Constitutional: Negative. HENT: Negative. Eyes: Negative. Respiratory: Negative. Breasts: Negative. Cardiovascular: Negative. Gastrointestinal: Negative. Genitourinary: Negative. Musculoskeletal: Positive for joint swelling. Skin: Negative. Neurological: Negative. Psychiatric/Behavioral: Negative. Endocrine: Endocrine negative Vital Signs Ht 74" (188 cm) | Wt 130.6 kg (288 lb) | BMI 36.98 kg/m Physical Exam Musculoskeletal: Right hip: He exhibits decreased range of motion and tenderness. General: Well-developed well-nourished oriented to person place and time HEENT normocephalic atraumatic atraumatic pupils equal round reactive to light extraocular muscles intact Cervical thoracic and lumbar spine without focal deficit normal kyphosis and lordosis Chest clear to auscultation and percussion Cardiovascular regular rate and rhythm without gallop rub or murmur soft without organomegaly Normal bowel sounds Neurologic: Focal myotome or dermatomal deficits Vascular: Intact symmetrical bilateral upper and lower extremities Skin without stasis varicosities or breakdown Extremities without cyanosis clubbing or edema Lymphatics no peripheral lymphedema Psych normal mood and affect. Neurovascular function is intact. To include brisk capillary refill warm pink skin active motor function and sensory function intact. Nursing note and vitals reviewed. Assessment/Plan Diagnosis S/P Right total hip replacement. Plan Will order a CBC, Sed-Rate and C-Reactive. Medrol dosepak today. Follow up 1 week for results. documented in this encounter Plan of Treatment Date Type Specialty Care Team Description 01/10/2020 Office Visit Orthopedic Surgery Reagan Duenas MD [address] [place] [phone] Health Maintenance Due Date Last Done Comments HEPATITIS C (HCV) SCREEN 1955 DTaP,Tdap,and Td Vaccines (1 - Tdap) 1964 COLONOSCOPY 2003 Zoster Recombinant Vaccine (SHINGRIX) (1 of 2) 2003 Medicare Wellness Visit 2018 PNEUMOCOCCAL VACCINES 65+ (1 of 2 - PCV13) 2018 INFLUENZA VACCINE (#1) 2019 documented as of this encounter Implants Implanted Type Area Video Tape Duplicator Device Shelf Model / Identifier Expiration Date Serial / Lot Porous Coated Stem Reduced Distal HIP Right: Biomet 02/05/2025 51- [id number] / Implanted: Qty: 1 on 03/21/2017 by Reagan Duenas MD at [facility] Hip [id number] / [id number] Acetabular Liner HIP Right: Biomet 07/29/2021 [id number] / Implanted: Qty: 1 on 03/21/2017 by Reagan Duenas MD at [facility] Hip [id number] / [id number] Acetabular Screw HIP Right: Biomet 10/12/2026 [id number] / Implanted: Qty: 1 on 03/21/2017 by Reagan Duenas MD at [facility] Hip [id number] / [id number] Acetabular Shell HIP Right: Biomet 01/27/2026 [id number] / Implanted: Qty: 1 on 03/21/2017 by Reagan Duenas MD at [facility] Hip [id number] / [id number] Acetabular Screw HIP Right: Biomet 01/14/2027 [id number] / Implanted: Qty: 1 on 03/21/2017 by Reagan Duenas MD at [facility] Hip [id number] / [id number] Adc [employer]am[employer] Head 40 Mm - [id number] Right: Biomet 10/27/2026 [id number] / Implanted: Qty: 1 on 03/21/2017 by Reagan Duenas MD at [facility] Hip [id number] / [id number] Adc Neck Adapter -3 - [id number] Right: Biomet 12/17/2026 [id number] / Implanted: Qty: 1 on 03/21/2017 by Reagan Duenas MD at [facility] Hip [id number] / [id number] documented as of this encounter Procedures Procedure Name Priority Date/Time Associated Comments Diagnosis CBC WITH DIFFERENTIAL Routine 12/31/2019 2:39 S/P hip Results for this PM VICTIM ADVOCATE replacement, right procedure are in the results section. CBC WITH DIFFERENTIAL Routine 12/31/2019 2:39 S/P hip Results for this PM VICTIM ADVOCATE replacement, right procedure are in the results section. SEDIMENTATION RATE Routine 12/31/2019 2:39 S/P hip Results for this PM VICTIM ADVOCATE replacement, right procedure are in the results section. C-REACTIVE PROTEIN Routine 12/31/2019 2:39 S/P hip Results for this PM VICTIM ADVOCATE replacement, right procedure are in the results section. documented in this encounter Results CBC WITH DIFFERENTIAL (12/31/2019 2:39 PM VICTIM ADVOCATE) WBC 8.19 4.20 - 10.70 [facility] 10*3/L [facility] RBC 5.02 4.26 - 5.52 [facility] 10*6/L [facility] HGB 13.4 12.2 - 16.4 [facility] g/dL [facility] HCT 43.6 38.4 - 49.3 % [facility] MCV 86.9 81.7 - 95.6 fL [facility] MCH 26.7 26.1 - 32.7 pg [facility] MCHC 30.7 (L) 31.2 - 35.0 [facility] g/dL [facility] RDW-SD 48.0 38.5 - 51.6 fL [facility] RDW-CV 15.1 12.1 - 15.4 % [facility] PLT 175 150 - 328 [facility] 10*3/L [facility] MPV 11.0 9.8 - 13.0 fL [facility] NRBC/100 WBC 0.0 0.0 - 10.0 /100 [facility] WBCs [facility] NRBC x10^3 <0.01 10*3/L [facility] GRAN MAT (NEUT) % 62.2 % [facility] IMM GRAN % 0.40 % [facility] LYMPH % 27.1 % [facility] MONO % 8.7 % [facility] EOS % 1.2 % [facility] BASO % 0.4 % [facility] GRAN MAT x10^3(ANC) 5.10 1.99 - 6.95 [facility] 10*3/uL [facility] IMM GRAN x10^3 0.03 0.00 - 0.06 [facility] 10*3/uL [facility] LYMPH x10^3 2.22 1.09 - 3.23 [facility] 10*3/uL [facility] MONO x10^3 0.71 0.36 - 1.02 [facility] 10*3/uL [facility] EOS x10^3 0.10 0.06 - 0.53 [facility] 10*3/uL [facility] BASO x10^3 0.03 0.01 - 0.09 [facility] 10*3/uL [facility] Specimen Blood Performing Organization Address City/[facility]/Zipcode Phone Number [facility] CLIA: [id number], [address] [place] [address] C-REACTIVE PROTEIN (12/31/2019 2:39 PM VICTIM ADVOCATE) CRP 0.6 <0.8 mg/dL [facility] Specimen Blood Performing Organization Address City/[facility]/Zipcode Phone Number [facility] CLIA: [id number], [address] [place] [address] [phone] [facility] SEDIMENTATION RATE (12/31/2019 2:39 PM VICTIM ADVOCATE) ESR 9 0 - 10 mm/HR [facility] Specimen Blood Performing Organization Address City/[facility]/Zipcode Phone Number [facility] CLIA: [id number], [address] [place] [address] XR HIP 1 VW RIGHT (12/31/2019 1:55 PM VICTIM ADVOCATE) Specimen Narrative Performed At Implant in good position, no signs of loosening or subsidence or otherwise PACS failure prosthesis. Interval between implants is excellent with no evidence of wear. Performing Organization Address [facility] Phone Number PACS documented in this encounter Visit Diagnoses Diagnosis S/P hip replacement, right - Primary documented in this encounter Insurance Payer Benefit Plan / Subscriber ID Effective Dates Phone Address Type Group [employer] [id number] 2016-Present Medicare [facility] spring O documented as of this encounter
--- OUTSIDE RECORDS SUMMARY | 2020-01-14 07:51 | XMS REPORT | Summary of Care ---
:1955 Author Organization [facility] Address [address] [place] [address] Care Team Providers Name Role Phone John He Primary Care Provider Reagan Duenas MD Unavailable Reason for Visit Auth/Cert Status Reason Specialty Diagnoses / Procedures Referred By Contact Referred To Contact Phlebotomy Diagnoses S/P hip replacement, right Adc Pob Lab Draw Procedures CBC WITH DIFFERENTIAL Professional Office [address] , [address] [place] [address] Encounter Details Date Type Department Care Team Description 12/31/2019 Hospital Encounter [facility] Reagan Duenas, [facility] Orthopedics - Radiology [address] [place] [address] [place] [address] [place], [place] [phone] Allergies Active Allergy Reactions Severity Noted Date Comments Pegfilgrastim Hives 10/27/2018 documented as of this encounter (statuses as of 01/01/2020) Medications Medication Sig Dispensed Refills Start Date [...] 21 tablets 1 Each 0 04/06/2019 Active (MEDROLANTOINETTE,) 4 mg by mouth tabletsIndications: S/P SEE-INSTRUCTIONS [...] 21 tablets 1 Each 0 12/31/2019 Active (MEDROL ANTOINETTE,) 4 mg by mouth tabletsIndications: S/P SEE-INSTRUCTIONS hip replacement, right . 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 documented as of this encounter (statuses as of 01/01/2020) Social History Tobacco Use Types Packs/Day Years [...] of this encounter Implants Implanted Type Area [employer] Intermediary Device Shelf Model / Identifier Expiration Date Serial / Lot Porous Coated Stem Reduced Distal HIP Right: Biomet 02/05/2025 [id number] / Implanted: Qty: 1 on 03/21/2017 by Reagan Duenas MD at [facility] Hip [id number] / [id number] Acetabular Liner HIP Right: [employer] 07/29/2021 [id number] / Implanted: Qty: 1 on 03/21/2017 by Reagan Duenas MD at [facility] Hip [id number] / [id number] Acetabular Screw HIP Right: [employer] 10/12/2026 [id number] / Implanted: Qty: 1 on 03/21/2017 by Reagan Duenas MD at [facility] Hip [id number] / [id number] Acetabular Shell HIP Right: [employer]omet 01/27/2026 [id number] / Implanted: Qty: 1 on 03/21/2017 by Reagan Duenas MD at [facility] Hip [id number] / [id number] Acetabular Screw HIP Right: [employer] 01/14/2027 [id number] / Implanted: Qty: 1 on 03/21/2017 by Reagan Duenas MD at [facility] Hip [id number] / [id number] Adc [employer] Head 40 Mm - [id number] Right: [employer]omet 10/27/2026 [id number] / Implanted: Qty: 1 on 03/21/2017 by Reagan Duenas MD at [facility] Hip [id number] / [id number] Adc Neck Adapter -3 - [id number] Right: [employer]omet 12/17/2026 [id number] / Implanted: Qty: 1 on 03/21/2017 by Reagan Duenas MD at [facility] Hip [id number] / [id number] documented as of this encounter Procedures Procedure Name Priority Date/Time Associated Comments Diagnosis NOTICE OF PRIVACY Routine 12/31/2019 2:27 PM PRACTICES LACTATION NURSE CONSENT/REFUSAL FOR Routine 12/31/2019 2:27 PM DIAGNOSIS AND LACTATION NURSE TREATMENT ASSIGNMENT OF Routine 12/31/2019 2:26 PM BENEFITS LACTATION NURSE XR HIP 1 VW RIGHT Routine 12/31/2019 1:55 PM S/P hip Results for this LACTATION NURSE replacement, right procedure are in the results section. documented in this encounter Results XR HIP 1 VW RIGHT (12/31/2019 1:55 PM LACTATION NURSE) Specimen Narrative Performed At Implant in good position, no signs of loosening or subsidence or otherwise PACS failure prosthesis. Interval between implants is excellent with no evidence of wear. Performing Organization Address City/State/Zipcode Phone Number PACS documented in this encounter Visit Diagnoses Diagnosis S/P hip replacement, right documented in this encounter Insurance Payer Benefit Plan / Subscriber ID Effective Dates Phone Address Type Group [employer] [id number] 2016-Present Medicare [facility] spring HMO documented as of this encounter
--- OUTSIDE RECORDS SUMMARY | 2020-01-14 07:51 | XMS REPORT | Summary of Care ---
:1955 Author Organization [facility] Address [address] [place] [id number] Care Team Providers Name Role Phone John He Primary Care Provider Reagan Duenas MD Unavailable Reason for Referral Radiology Services (Routine) Status Reason Specialty Diagnoses / Referred By Referred To Procedures Contact Contact New Request Diagnostic Diagnoses S/P hip replacement, right Reagan Duenas Radiology Procedures XR HIP 1 VW RIGHT Gloria MD [address] [place] [address] [place] [address] Reason for Visit Reason Comments Follow-up follow up visit on right hip pain s/p DOS:03/21/2017 Auth/Cert Status Reason Specialty Diagnoses / Procedures Referred By Contact Referred To Contact Phlebotomy Diagnoses S/P hip replacement, right Adc Pob Lab Draw Procedures CBC WITH DIFFERENTIAL Professional Office Building [address] [place] [address] Encounter Details Date Type Department Care Team Description 12/31/2019 Office Visit [facility] Orthopaedic Reagan Duenas S/P hip replacement, Surgery- Mayi Castro MD right (Primary Dx) [address] [place] [address] [place] [phone] Allergies Active Allergy Reactions Severity Noted [...] Comments Blood Pressure 135/74 12/31/2019 1:37 PM GRAIN COMMODITY MANAGER Pulse 68 12/31/2019 1:37 PM GRAIN COMMODITY MANAGER Temperature - - Respiratory Rate 18 12/31/2019 1:37 PM GRAIN COMMODITY MANAGER Oxygen Saturation - - Inhaled Oxygen Concentration - - Weight 130.6 kg (288 lb) 12/31/2019 1:37 PM GRAIN COMMODITY MANAGER Height 188 cm (6' 2") 12/31/2019 1:37 PM GRAIN COMMODITY MANAGER Body Mass Index 36.98 12/31/2019 1:37 PM GRAIN COMMODITY MANAGER documented in this encounter Progress Notes Reagan [...] Height: 74" (188 cm) [id number] [address] All Vitals taken, allergies and all [...] Right 03/21/2017 Surgeon: Reagan Duenas MD; Location: [facility] Social History Socioeconomic History Marital status: Spouse [...] file Gets together: Not on file Attends [employer] service: Not on file Active member of [...] Office Visit Orthopedic Surgery Reagan Duenas MD [address] [place] [phone] Health Maintenance Due Date Last Done Comments HEPATITIS C (HCV) SCREEN 1955 DTaP,Tdap,and Td Vaccines (1 - Tdap) 1964 COLONOSCOPY 2003 Zoster Recombinant Vaccine (SHINGRIX) (1 of 2) 2003 Medicare Wellness Visit 2018 PNEUMOCOCCAL VACCINES 65+ (1 of 2 - PCV13) 2018 INFLUENZA VACCINE (#1) 2019 documented as of this encounter Implants Implanted Type Area Vice President [employer] Sales Device Shelf Model / Identifier Expiration Date Serial / Lot Porous Coated Stem Reduced Distal HIP Right: [employer]omet 02/05/2025 [id number] / Implanted: Qty: 1 on 03/21/2017 by Reagan Duenas MD at [facility] Hip [id number] / [id number] Acetabular Liner HIP Right: [employer] 07/29/2021 [id number] / Implanted: Qty: 1 on 03/21/2017 by Reagan Duenas MD at [facility] Hip [id number] / [id number] Acetabular Screw HIP Right: [employer] 10/12/2026 [id number] / Implanted: Qty: 1 on 03/21/2017 by Reagan Duenas MD at [facility] Hip [id number] / [id number] Acetabular Shell HIP Right: [employer] 01/27/2026 [id number] / Implanted: Qty: 1 on 03/21/2017 by Reagan Duenas MD at [facility] Hip [id number] / [id number] Acetabular Screw HIP Right: [employer] 01/14/2027 [id number] / Implanted: Qty: 1 on 03/21/2017 by Reagan Duenas MD at [facility] Hip [id number] / [id number] Adc [employer] Head 40 Mm - [id number] Right: Biomet 10/27/2026 [id number] / Implanted: Qty: 1 on 03/21/2017 by Reagan Duenas MD at [facility] Hip [id number] / [id number] Adc Neck Adapter -3 - [id number] Right: [employer]omet 12/17/2026 [id number] / Implanted: Qty: 1 on 03/21/2017 by Reagan Duenas MD at [facility] Hip [id number] / [id number] documented as of this encounter Procedures Procedure Name Priority Date/Time Associated Comments Diagnosis CBC WITH DIFFERENTIAL Routine 12/31/2019 2:39 S/P hip Results for this PM GRAIN COMMODITY MANAGER replacement, right procedure are in the results section. CBC WITH DIFFERENTIAL Routine 12/31/2019 2:39 S/P hip Results for this PM GRAIN COMMODITY MANAGER replacement, right procedure are in the results section. SEDIMENTATION RATE Routine 12/31/2019 2:39 S/P hip Results for this PM GRAIN COMMODITY MANAGER replacement, right procedure are in the results section. C-REACTIVE PROTEIN Routine 12/31/2019 2:39 S/P hip Results for this PM GRAIN COMMODITY MANAGER replacement, right procedure are in the results section. documented in this encounter Results CBC WITH DIFFERENTIAL (12/31/2019 2:39 PM GRAIN COMMODITY MANAGER) WBC 8.19 4.20 - 10.70 [facility] 10*3/L [facility] RBC 5.02 4.26 - 5.52 [facility] 10*6/L [facility] HGB 13.4 12.2 - 16.4 [facility] g/dL [facility] HCT 43.6 38.4 - 49.3 % [facility] MCV 86.9 81.7 - 95.6 fL [facility] MCH 26.7 26.1 - 32.7 pg [facility] MCHC 30.7 (L) 31.2 - 35.0 [facility] g/dL [facility] RDW-SD 48.0 38.5 - 51.6 fL [facility] RDW-CV 15.1 12.1 - 15.4 % [facility] PLT 175 150 - 328 [facility] 10*3/L [facility] MPV 11.0 9.8 - 13.0 fL [facility] NRBC/100 WBC 0.0 0.0 - 10.0 /100 [facility] WBCs [facility] NRBC x10^3 <0.01 10*3/L [facility] GRAN MAT (NEUT) % 62.2 % [facility] IMM GRAN % 0.40 % [facility] LYMPH % 27.1 % [facility] MONO % 8.7 % [facility] EOS % 1.2 % [facility] BASO % 0.4 % [facility] GRAN MAT x10^3(ANC) 5.10 1.99 - 6.95 [facility] 10*3/uL [facility] IMM GRAN x10^3 0.03 0.00 - 0.06 [facility] 10*3/uL [facility] LYMPH x10^3 2.22 1.09 - 3.23 [facility] 10*3/uL [facility] MONO x10^3 0.71 0.36 - 1.02 [facility] 10*3/uL [facility] EOS x10^3 0.10 0.06 - 0.53 [facility] 10*3/uL [facility]ITAL [facility] BASO x10^3 0.03 0.01 - 0.09 [facility] 10*3/uL [facility] Specimen Blood Performing Organization Address City/[facility]/Zipcode Phone Number [facility] CLIA: [id number], [address] [place] [address] C-REACTIVE PROTEIN (12/31/2019 2:39 PM GRAIN COMMODITY MANAGER) CRP 0.6 <0.8 mg/dL [facility] Specimen Blood Performing Organization Address City/[facility]/Zipcode Phone Number [facility] CLIA: [id number], [address] [place] [address] [phone] [facility] SEDIMENTATION RATE (12/31/2019 2:39 PM GRAIN COMMODITY MANAGER) ESR 9 0 - 10 mm/HR [facility] Specimen Blood Performing Organization Address City/[facility]/Zipcode Phone Number [facility] CLIA: [id number], [address] [place] [address] XR HIP 1 VW RIGHT (12/31/2019 1:55 PM GRAIN COMMODITY MANAGER) Specimen Narrative Performed At Implant in good position, no signs of loosening or subsidence or otherwise PACS failure prosthesis. Interval between implants is excellent with no evidence of wear. Performing Organization Address [facility] Phone Number PACS documented in this encounter Visit Diagnoses Diagnosis S/P hip replacement, right - Primary documented in this encounter Insurance Payer Benefit Plan / Subscriber ID Effective Dates Phone Address Type Group [employer] [id number] 2016-Present Medicare [facility] documented as of this encounter
[2020-01-14] MEDS ORDERED: NA CHLORIDE 0.9% 500 ML ONE (08:54)
[2020-01-14] MEDS ORDERED: HEPA 1000U/500MLS 2,000 UNIT/1,000 ML BAG IV ONE (09:17)
[2020-01-14] MEDS ORDERED: NITROGLYCERIN 100 MCG/ML SYR (for cath lab use only) IV ONE (09:18)
[2020-01-14] MEDS ORDERED: NICARDIPINE HCL 25 MG/10 ML IV ONE (09:18)
[2020-01-14] MEDS ORDERED: HEPARIN 5000 UNIT/ML 1 ML VIAL ONE (09:18)
[2020-01-14] MEDS ORDERED: ATROPINE SULF 1 MG/10 ML SYR IV ONE (09:18)
[2020-01-14] MEDS ORDERED: NA CHLORIDE 0.9% 0 ML ONE (09:18)
[2020-01-14] MEDS ORDERED: FENTANYL CITR 100 MCG/2 ML ONE (09:19)
[2020-01-14] MEDS ORDERED: MIDAZOLAM HCL 2 MG/2 ML INJ ONE ×2 (09:19→09:33)
[2020-01-14 12:08] VITALS: TEMP 97.2
[2020-01-14 13:42] VITALS: BP 147/66; O2SAT 98
--- NOTE | 2020-01-14 19:59 | OP ---
Surgeon: Shade Pelletier MD Identification: 64-year-old man. Procedure: Left heart catheterization with coronary angiography. No left ventriculogram was done. It was our desire to reduce the amount of contrast given. Left ventricular pressures were taken, how ever. Procedure Findings: The patient has normal coronary arteries. His heart is counterclockwise rotated and that the takeoff of the right coronary is high and anterior, takeoff of the left coronary was ve ry posterior. He has a ramus intermedius, but a normal right dominant system. No coronary stenosis. Left ventricular end-diastolic pressure was 13, which is within normal limits. He was in sinus rhy thm. Heart rate 65. Blood pressure at the end of the procedure 131/54. Procedure In Detail: The patient had an abnormal Cardiolite indicating anterior and lateral ischemia . He was brought to the cardiac medical laboratory technicians fasting, sedated with Versed and fentanyl. Prepared and dr dennis in usual sterile fashion. Right radial approach was used. We anesthetized the skin over the [facility] radial artery using lidocaine. We entered the artery using a 21-gauge needle, cannulated with a 0.021 inch diameter guidewire and placed a 5/6-[employer] radial sheath. We flushed the sheath an d gave a radial cocktail consisting of nicardipine, heparin, and nitroglycerin. We used a TIG cathet er, guided into the ascending aorta using a short radius J-tip Glidewire. We were able to angiogram right coronary with that catheter. We then attempted to use a Beto catheter and then an Amplatz lef t-2 catheter to angiogram the left coronary. We took pressures in the left ventricle, but did no ang iogram. The catheter used for the pressures was the Amplatz left-2. At the end of the procedure, ca theters were withdrawn over a wire. The sheath was flushed, removed, and the arteriotomy closed usin g a large TR band. Complications From The Procedure: None. Estimated Blood Loss: 5 cc. Windows Server Support Technician: Prem Lucas. GWEN/TEENA Voice ID: [id number] Report ID: [id number]
== END 2020-01-14 13:18 | disposition home or self-care (01) ==
LOC: CCL 07:41
PROVIDERS: ATTEND Internal Medicine
DX: R94.39 Abnormal result of other cardiovascular function study (principal); I10 Essential (primary) hypertension; E78.5 Hyperlipidemia, unspecified; E11.9 Type 2 diabetes mellitus without complications; F17.210 Nicotine dependence, cigarettes, uncomplicated; Z79.82 Long term (current) use of aspirin; Z85.118 Personal history of other malignant neoplasm of bronchus and lung; Z82.49 Family history of ischemic heart disease and other diseases of the circulatory system
CPT/HCPCS: 82947 ×2; 93458; C1893; J1644; J2250 ×2; J3010; J7040; J0583

== ENCOUNTER 2022-01-04 07:29 | Day surgery (SDC) | payer MEDICARE ==
[2022-01-04 08:07] LABS: MPV 9.2 fL (7.6-11.3)
[2022-01-04] MEDS ORDERED: NA CHLORIDE 0.9% 1,000 ML ONE (08:09)
[2022-01-04 08:13] LABS: Protime INR 0.97
[2022-01-04] MEDS ORDERED: FENTANYL CITR 100 MCG/2 ML ONE (08:36)
[2022-01-04] MEDS ORDERED: MIDAZOLAM HCL 2 MG/2 ML INJ ONE (08:36)
[2022-01-04] MEDS ORDERED: NALOXONE 0.4 MG/ML VIAL ONE (08:37)
[2022-01-04] MEDS ORDERED: DIAZEPAM 5 MG TABLET ONE (09:51)
[2022-01-04] MEDS ORDERED: HYDROCODONE/APAP 7.5/325 MG TAB ONE (12:00)
--- NOTE | 2022-01-04 12:06 | RAD REPORT ---
EXAM DESCRIPTION: CT - Lung Biopsy Perc w/CT - 01/04/2022 11:56 am CLINICAL HISTORY: lung nodule COMPARISON: No comparisons FINDINGS: Preoperative diagnosis: Right lower lobe lung nodule Post operative diagnosis: Same Conscious Sedation: Versed and Fentanyl Patient was continuously monitored by nursing staff. Contrast used: NONE Estimated blood loss: less than 5 mL Specimens: Several core samples obtained. One 18 gauge sample had significant soft tissue. The patient was placed prone on the table and the right lower chest area was prepped and draped in e usual sterile fashion. 1% lidocaine was infiltrated into the subcutaneous tissues for local anesthe familia. Under computed tomographic guidance, a 17 gauge introducer was advanced into the lesion. Subsequ ently, a 18 gauge, 2 cm long, 20 mm throw core biopsy gun was advanced into the lesion and several co res were obtained. Only 1 sample had significant soft tissue. Postprocedure imaging demonstrated no complications. Samples were given to pathology for analysis. e patient tolerated the procedure without immediate complication and transferred to the recovery room in stable condition. IMPRESSION: Technically successful CT-guided right lower lobe lung biopsy. No immediate complication s. Conscious sedation was utilized. All CT scans are performed using dose optimization technique as appropriate and may include automated exposure control or mA/KV adjustment according to patient size.
--- NOTE | 2022-01-04 13:16 | RAD REPORT ---
EXAM DESCRIPTION: RAD - Chest Single View - 01/04/2022 12:55 pm CLINICAL HISTORY: RULE OUT PNEUMOTHORAX POST LUNG BIOPSY COMPARISON: Chest Single View dated 12/10/2019; Chest Pa And Lat (2 Views) dated 02/04/2018; Chest Sing le View dated 10/20/2017; Chest Single View dated 07/15/2016 FINDINGS: No pneumothorax fine right-sided lung biopsy. Similar post treatment changes in the left l kaya. IMPRESSION: No pneumothorax following right-sided lung biopsy.
[2022-01-04 13:59] VITALS: O2SAT 98
[2022-01-04 14:02] VITALS: BP 148/63; TEMP 97.2
[2022-01-04 14:07] VITALS: BMI 36.6
--- NOTE | 2022-01-04 14:22 | RAD REPORT ---
EXAM DESCRIPTION: [facility] Single View01/04/2022 2:11 pm CLINICAL HISTORY: Right lung biopsy FINDINGS: Pneumothorax is not visualized on this exam. IMPRESSION: Pneumothorax is not visualized
== END 2022-01-04 14:26 | disposition home or self-care (01) ==
LOC: DS 07:29
PROVIDERS: ATTEND Radiology Radiation Oncology
PROC: 0BDK4ZX Extraction of Right Lung, Percutaneous Endoscopic Approach, Diagnostic (ICD-10-PCS; principal; 2022-01-04)
DX: C34.12 Malignant neoplasm of upper lobe, left bronchus or lung (principal); R91.1 Solitary pulmonary nodule
CPT/HCPCS: 36415; 85049; 85610; 88305; 85730; 77012; 71045 ×2; 32408; J2250; J3010; J7030; J2310

== ENCOUNTER 2022-09-10 13:53 | Observation (INO) | payer MEDICARE ==
--- OUTSIDE RECORDS SUMMARY | 2022-09-10 14:00 | XMS REPORT | Continuity of Care Document ---
:1955 Author Organization [facility] t Address [address] [place] [address] Care Team Providers Name Role Phone JORI FOX Primary Care Physician Unavailable Yao Watters Attending Clinician Unavailable AYDIN LEVI Attending Clinician Unavailable Marjorie Attending Clinician Unavailable Aydin Levi MD Attending Clinician Only, Adc Test Attending Clinician Unavailable Doctor Unassigned, [place] Attending Clinician Unavailable Pob, Adc Lab Main Attending Clinician Unavailable CORONA CALLES Attending Clinician Unavailable Corona Calles MD Attending Clinician AYDIN LEVI Admitting Clinician Unavailable Marjorie Admitting Clinician Unavailable Aydin Levi MD Admitting Clinician CORONA CALLES Admitting Clinician Unavailable Payers Payer Name Policy Type Policy Number Effective Date Expiration Date Lennie barrientos FORMERLY [facility] [employer] [place] [id number] 2016 00:00:00 [facility] [id number] 2021 (MEDICARE 00:00:00 REPLACEMENT HMO) Problems Condition Condition Condition Status Onset Resolution Last Treating Co mments Source Name Details Category Date Date Treatment Clinician Date Failed Failed Disease Active Univers total hip total hip 5-15 [place] [facility] KNEE PAIN KNEE PAIN Condition Active 2013-08-17 Memoria Active 09:35:00 l Condition [place] 08/17/2013 [facility] NECK PAIN NECK PAIN Condition Active 2013-08-17 Memoria Active 09:35:00 l Condition [place] 08/17/2013 [facility] HIP PAIN HIP PAIN Condition Active 2013-08-17 Memoria Active 09:35:00 l Condition [place] 08/17/2013 [facility] SHOULDER SHOULDER Condition Active 2013-08-17 Memoria PAIN PAIN 09:35:00 l Active [place] Condition 08/17/2013 [facility] HYPERTENSI HYPERTENS Condition Active 2013-08-17 Memoria ON ION Active 09:35:00 l Condition [place] 08/17/2013 [facility] EDEMA EDEMA Condition Active 2013-08-17 Mem oria Active 09:35:00 l Condition [place] 08/17/2013 [facility] IRREGULAR IRREGULAR Condition Active 2013-08-17 Memoria HEART RATE HEART RATE 09:35:00 l Active [facility] 08/17/2013 [facility] PAIN IN PAIN IN Condition Active 2013-08-17 Memoria JOINT, JOINT, 09:35:00 l MULTIPLE MULTIPLE [place] n SITES SITES Active Condition 08/17/2013 [facility] GOUT GOUT Condition Active 2013-08-17 Mem oria Active 09:35:00 l Condition [place] 08/17/2013 [facility] HYPERURICE HYPERURIC Condition Active 2013-08-17 Memoria ERIKA EMIA 09:35:00 l Active [facility] 08/17/2013 [facility] 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 - CHI lobe of lobe of St right lung right lung [facility] 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 of upper - CHI lobe, lobe, left St bronchus bronchus [facility] or lung or lung Medical Center Essential Benign Problem Common hypertensi essential Spi rit on HTN - CHI [facility] [id number] Benign Problem Common prostatic Spirit hyperplasi - CHI a, St unspecifie kes d whether Medical [facility] Center urinary tract symptoms present Hyperlipid Hyperlipid Problem C ommon emia emia, Spirit unspecifie - CHI d hyperlipid [facility] emia [facility] [id number] Anxiety Problem Common [facility] Primary 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 [facility] Inflammato Neuropathy Problem C ommon ry and , Spirit toxic peripheral - CHI neuropathy [facility] Proliferat 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 - CH I y with with St retinal diabetic [facility] edema due retinopath Med ical to type 2 y and Center diabetes macular mellitus edema [id number] Primary Problem Common open angle [facility] glaucoma - [facility] (POAG) of both eyes, [facility] Proliferat Proliferat Problem C ommon olivia olivia Spirit retinopath retinopath - CHI y y [facility] [id number] Uncontroll Problem Co mmon ed type 2 Spirit diabetes - CHI mellitus St with [facility] hyperglyce Medica l [facility] [id number] History of Problem C ommon 06 total Spirit right hip - CHI replacemen [facility] [id number] Pain in Problem Comm on [id number] right Spirit shoulder - CHI [facility] [id number] Right hip Problem Co mmon 35342 pain Spirit - CHI [facility] [id number] Lesion of Problem Com mon right Spirit ulnar - CHI nerve [facility] [id number] Cervical Problem Comm on spondylosi Spirit s - CHI [facility] Diabetic Diabetes Problem Commo n neuropathy mellitus Spir it with - CHI diabetic [facility] Heart Heart Problem Common disease disease, [facility] unspecifie - CHI d [facility] Adenocarci Adenocarci Problem 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 - [facility] [id number] S/P Problem Commo n [id number] lobectomy [facility] [id number] History of Problem Co mmon lung [facility] cancer [facility] [id number] Other Problem Common chronic [facility] pain [facility] Allergies, Adverse Reactions, Alerts Allergy Allergy Status Severity Reaction(s) Onset Inactive Treating Comm ents Source Name Type Date Date Clinician Pegfilgr Propensi Active Hives 2017-11 Univer s astim ty to 2-21 ity of adverse 00:00: [place] reaction 00 Medical s Branch PEGFILGR DRUG Active Hives 2017-11 Univers ASTIM INGREDI 2- ity of 00:00: [address] semaglut semaglut Active nausea, and C ommon derrick derrick dizziness [facility] pegfilgr pegfilgr Active Itching,swel Common astim astim ling [facility] Social History Social Habit Start Date Stop Date Quantity Comments Source Exposure to Not sure [facility] SARS-CoV-2 [facility] (event) Branch History of Common Spirit - Tobacco Use [facility] Sex Assigned At Common Sp mirian - [facility] Alcohol intake 2020-05-02 2020-05-02 University of 00:00:00 00:00:00 [facility] Tobacco Comment 2020-04-03 2020-04-03 quite 04/19/2016 Uni versity of 00:00:00 00:00:00 [facility] Alcohol Comment 2017-03-18 2017-03-18 Occasional Drinker U niversity of 00:00:00 00:00:00 [facility] Smoking Status Start Date Stop Date Source Former Smoker 2022-09-07 00:00:00 2022-09-07 00:00:00 Common S [facility]irit [facility] Never smoker [facility] Medications Ordered Filled Start Stop Current Ordering Indication Dosage Frequency Signature Comments Components Source Medication Medication Date Date Medication? Clinician (SIG) Name Name Ozempic Ozempic No Ozempic 0.25 or 0.5 0.25 or 0.5 06-07 1030 0.25 or MG/DOSE MG/DOSE 00:00: 00:00 0.5 00 :00 MG/DOSE Ozempic Ozempic 2022-0 2022- No Ozempic 0.25 or 0.5 0.25 or 0.5 8-01 10-30 0.25 or MG/DOSE MG/DOSE 00:00: 00:00 0.5 00 :00 MG/DOSE ADULT LOW 2020-0 Yes 81mg Take 81 mg Un [place] DOSE 6-29 by mouth ity of ASPIRIN 13:24: daily. [facility] 32 Medical Branch rosuvastati 2020-0 Yes 631 20mg Take 20 mg Univers n 20 mg 6-29 by mouth ity of CpSP 13:24: at [place] [address] bedtime. Medical Indication Branch s: excessive fat in the blood ADULT LOW 2020-0 Yes 81mg Take 81 mg Un [place] DOSE 6-26 by mouth ity of ASPIRIN 14:39: daily. [facility] 40 Medical Branch rosuvastati 2020-0 Yes 631 20mg Take 20 mg Univers n 20 mg 6-26 by mouth ity of CpSP 14:39: at [place] [address] bedtime. Medical Indication Branch s: excessive fat in the blood ADULT LOW 2020-0 Yes 81mg Take 81 mg Un [place] DOSE 6-15 by mouth ity of ASPIRIN 13:29: daily. [facility] 20 [facility] Branch rosuvastati 2020-0 Yes 631 20mg Take 20 mg Univers n 20 mg 6-15 by mouth ity of CpSP 13:29: at [place] [address] bedtime. Medical Indication Branch s: excessive fat in the blood ADULT LOW 2020-0 Yes 81mg Take 81 mg Un [place] DOSE 6-15 by mouth ity of ASPIRIN 13:29: daily. [place] ORAL 20 Medical Branch rosuvastati 2020-0 Yes 631 20mg Take 20 mg Univers n 20 mg 6-15 by mouth ity of CpSP 13:29: at [place] [address] bedtime. Medical Indication Branch s: excessive fat in the blood lactated 2020-0 Yes 500mL at 75 Univers ringers IV 6-15 mL/hr, 500 ity of infusion 13:00: mL, IV [place] 500 mL 00 Infusion, Medical CONTINUOUS Branch , Starting 04/21/20 at 0800, Until Discontinu ed, Routine lidocaine 2020-0 Yes PRN, Univers 1% 6-15 Starting ity of (XYLOCAINE) 12:39: Mon [place] 10 mg/mL (1 00 04/21/20 at Me dical %) 0739, Branch injection Until Discontinu ed, Routine, Intra-op bupivacaine 2020-0 Yes PRN, Univer s (preserv 6-15 Starting ity of free) 12:39: Mon [place] (SENSORCAIN 00 04/21/20 at Ok dical E MPF) 0.25 0739, Branch % (2.5 Until mg/mL) Discontinu injection ed, Routine, Intra-op triamcinolo 2020-0 Yes PRN, Univer s ne 6-15 Starting ity of acetonide 12:39: Mon [place] (KENALOG) 00 04/21/20 at Medi lawrence injection 0739, Branch Until Discontinu ed, Routine, Intra-op iohexol 2020-0 Yes PRN, Univers (OMNIPAQUE 6-15 Starting ity o f 350 BULK-50 12:29: Mon [place] mL) 00 04/21/20 at Medical injection 0729, Branch Until Discontinu ed, Routine, Intra-op FENTanyl PF 2020-0 Yes 25ug 25 mcg, Uni vers (SUBLIMAZE 6-15 Slow IV ity of (PF)) 11:52: Push, [place] injection 52 Q5MIN PRN, Medi [place] 25 mcg 4 doses, Branch Starting 04/21/20 at 0652, Until Discontinu ed, Routine, Pain (scale 4-6), PACU ADULT LOW 2020-0 Yes 81mg Take 81 mg Un [place] DOSE 6-01 by mouth ity of ASPIRIN 13:28: daily. [facility] 54 Medical Branch rosuvastati 2020-0 Yes 631 20mg Take 20 mg Univers n 20 mg 6-01 by mouth ity of CpSP 13:28: at [place] [address] bedtime. Medical Indication Branch s: excessive fat in the blood ADULT LOW 2020-0 Yes 81mg Take 81 mg Un [place] DOSE 6-01 by mouth ity of ASPIRIN 13:28: daily. [facility] 54 [facility] Branch rosuvastati 2020-0 Yes 631 20mg Take 20 mg Univers n 20 mg 6-01 by mouth ity of CpSP 13:28: at [place] [address] bedtime. Medical Indication Branch s: excessive fat in the blood ADULT LOW 2020-0 Yes 81mg Take 81 mg [place] DOSE 5-28 by mouth ity of ASPIRIN 19:13: daily. [place] ORAL 00 Medical Branch rosuvastati 2020-0 Yes 631 20mg Take 20 mg Univers n 20 mg 5-28 by mouth ity of CpSP 19:13: at [place] 00 bedtime. Medical Indication Branch s: excessive fat in the blood methylPREDN 2020-0 Yes [id number] 84mg Take 21 Univers ISolone 2-24 tablets by ity of (MEDROL, 00:00: mouth [place] ANTOINETTE,) 4 mg 00 SEE-INSTRU Med ical tablets CTIONS. Branch follow package directions methylPREDN 2020-0 Yes [id number] 84mg Take 21 Univers ISolone 2-24 tablets by ity of (MEDROL, 00:00: mouth [place] ANTOINETTE,) 4 mg 00 SEE-INSTRU Med ical tablets CTIONS. Branch follow package directions methylPREDN 2020-0 Yes [id number] 84mg Take 21 Univers ISolone 2-24 tablets by ity of (MEDROL, 00:00: mouth [place] ANTOINETTE,) 4 mg 00 SEE-INSTRU Med ical tablets CTIONS. Branch follow package directions methylPREDN 2020-0 Yes [id number] 84mg Take 21 Univers ISolone 2-24 tablets by ity of (MEDROL, 00:00: mouth [place] ANTOINETTE,) 4 mg 00 SEE-INSTRU Med ical tablets CTIONS. Branch follow package directions methylPREDN 2020-0 Yes [id number] 84mg Take 21 Univers ISolone 2-24 tablets by ity of (MEDROL, 00:00: mouth [place] ANTOINETTE,) 4 mg 00 SEE-INSTRU Med ical tablets CTIONS. Branch follow package directions methylPREDN 2020-0 Yes [id number] 84mg Take 21 Univers ISolone 2-24 tablets by ity of (MEDROL, 00:00: mouth [place] ANTOINETTE,) 4 mg 00 SEE-INSTRU Med ical tablets CTIONS. Branch follow package directions methylPREDN 2020-0 Yes [id number] 84mg Take 21 Univers ISolone 2-24 tablets by ity of (MEDROL, 00:00: mouth [place] ANTOINETTE,) 4 mg 00 SEE-INSTRU Med ical tablets CTIONS. Branch follow package directions methylPREDN 2020-0 Yes [id number] 84mg Take 21 Univers ISolone 2-24 tablets by ity of (MEDROL, 00:00: mouth [place] ANTOINETTE,) 4 mg 00 SEE-INSTRU Med ical tablets CTIONS. Branch follow package directions methylPREDN 2020-0 Yes [id number] 84mg Take 21 Univers ISolone 2-24 tablets by ity of (MEDROL, 00:00: mouth [place] ANTOINETTE,) 4 mg 00 SEE-INSTRU Med ical tablets CTIONS. Branch follow package directions methylPREDN 2020-0 Yes [id number] 84mg Take 21 Univers ISolone 2-24 tablets by ity of (MEDROL, 00:00: mouth [place] ANTOINETTE,) 4 mg 00 SEE-INSTRU Med ical tablets CTIONS. Branch follow package directions methylPREDN 2020-0 Yes [id number] 84mg Take 21 Univers ISolone 2-24 tablets by ity of (MEDROL, 00:00: mouth [place] ANTOINETTE,) 4 mg 00 SEE-INSTRU Med ical tablets CTIONS. Branch follow package directions methylPREDN 2020-0 Yes [id number] 84mg Take 21 Univers ISolone 2-24 tablets by ity of (MEDROL, 00:00: mouth [place] ANTOINETTE,) 4 mg 00 SEE-INSTRU Med ical tablets CTIONS. Branch follow package directions amLODIPine 2020-0 Yes 10mg Take 10 mg U nivers 10 mg 2-07 by mouth ity of tablet 00:00: daily. [address] amLODIPine 2020-0 Yes 10mg Take 10 mg U nivers 10 mg 2-07 by mouth ity of tablet 00:00: daily. [address] amLODIPine 2020-0 Yes 10mg Take 10 mg U nivers 10 mg 2-07 by mouth ity of tablet 00:00: daily. [address] amLODIPine 2020-0 Yes 10mg Take 10 mg U nivers 10 mg 2-07 by mouth ity of tablet 00:00: daily. [address] amLODIPine 2020-0 Yes 10mg Take 10 mg U nivers 10 mg 2-07 by mouth ity of tablet 00:00: daily. [address] amLODIPine 2020-0 Yes 10mg Take 10 mg U nivers 10 mg 2-07 by mouth ity of tablet 00:00: daily. [address] amLODIPine 2020-0 Yes 10mg Take 10 mg U nivers 10 mg 2-07 by mouth ity of tablet 00:00: daily. [address] amLODIPine 2020-0 Yes 10mg Take 10 mg U nivers 10 mg 2-07 by mouth ity of tablet 00:00: daily. Medical Branch amLODIPine 2020-0 Yes 10mg Take 10 mg U nivers 10 mg 2-07 by mouth ity of tablet 00:00: daily. Medical Branch amLODIPine 2020-0 Yes 10mg Take 10 mg U nivers 10 mg 2-07 by mouth ity of tablet 00:00: daily. Medical Branch amLODIPine 2020-0 Yes 10mg Take 10 mg U nivers 10 mg 2-07 by mouth ity of tablet 00:00: daily. Medical Branch amLODIPine 2020-0 Yes 10mg Take 10 mg U nivers 10 mg 2-07 by mouth ity of tablet 00:00: daily. Medical Branch azithromyci 2020-0 Yes 250mg Take 250 U nivers n 250 mg 2-04 mg by ity of tablet 00:00: mouth 00 daily. Medical Branch cefUROXime 2020-0 Yes 500mg Take 500 [place] 500 mg 2-04 mg by ity of tablet 00:00: mouth 2 (two) Medical times Branch daily. predniSONE 2020-0 Yes 10mg Take 10 mg U nivers 10 mg 2-04 by mouth 2 ity of tablet 00:00: (two) times Medical daily. Branch azithromyci 2020-0 Yes 250mg Take 250 U nivers n 250 mg 2-04 mg by ity of tablet 00:00: mouth daily. Medical Branch cefUROXime 2020-0 Yes 500mg Take 500 Un [place] 500 mg 2-04 mg by ity of tablet 00:00: mouth 2 00 (two) Medical times Branch daily. predniSONE 2020-0 Yes 10mg Take 10 mg U nivers 10 mg 2-04 by mouth 2 ity of tablet 00:00: (two) times Medical daily. Branch azithromyci 2020-0 Yes 250mg Take 250 U nivers n 250 mg 2-04 mg by ity of tablet 00:00: mouth 00 daily. Medical Branch cefUROXime 2020-0 Yes 500mg Take 500 [place] 500 mg 2-04 mg by ity of tablet 00:00: mouth 2 00 (two) Medical times Branch daily. predniSONE 2020-0 Yes 10mg Take 10 mg U nivers 10 mg 2-04 by mouth 2 ity of tablet 00:00: (two) [place] 00 times Medical daily. Branch azithromyci 2020-0 Yes 250mg Take 250 U nivers n 250 mg 2-04 mg by ity of tablet 00:00: mouth 00 daily. Medical Branch cefUROXime 2020-0 Yes 500mg Take 500 [place] 500 mg 2-04 mg by ity of tablet 00:00: mouth 2 00 (two) Medical times Branch daily. predniSONE 2020-0 Yes 10mg Take 10 mg U nivers 10 mg 2-04 by mouth 2 ity of tablet 00:00: (two) [place] 00 times Medical daily. Branch azithromyci 2020-0 Yes 250mg Take 250 U nivers n 250 mg 2-04 mg by ity of tablet 00:00: mouth 00 daily. Medical Branch cefUROXime 2020-0 Yes 500mg Take 500 [place] 500 mg 2-04 mg by ity of tablet 00:00: mouth 2 00 (two) Medical times Branch daily. predniSONE 2020-0 Yes 10mg Take 10 mg U nivers 10 mg 2-04 by mouth 2 ity of tablet 00:00: (two) 00 times Medical daily. Branch azithromyci 2020-0 Yes 250mg Take 250 U nivers n 250 mg 2-04 mg by ity of tablet 00:00: mouth 00 daily. Medical Branch cefUROXime 2020-0 Yes 500mg Take 500 Un [place] 500 mg 2-04 mg by ity of tablet 00:00: mouth 2 00 (two) Medical times Branch daily. predniSONE 2020-0 Yes 10mg Take 10 mg U nivers 10 mg 2-04 by mouth 2 ity of tablet 00:00: (two) 00 times Medical daily. Branch azithromyci 2020-0 Yes 250mg Take 250 U nivers n 250 mg 2-04 mg by ity of tablet 00:00: mouth 00 daily. Medical Branch cefUROXime 2020-0 Yes 500mg Take 500 [place] 500 mg 2-04 mg by ity of tablet 00:00: mouth 2 00 (two) Medical times Branch daily. predniSONE 2020-0 Yes 10mg Take 10 mg U nivers 10 mg 2-04 by mouth 2 ity of tablet 00:00: (two) 00 times Medical daily. Branch azithromyci 2020-0 Yes 250mg Take 250 U nivers n 250 mg 2-04 mg by ity of tablet 00:00: mouth [place] 00 daily. Medical Branch cefUROXime 2020-0 Yes 500mg Take 500 [place] 500 mg 2-04 mg by ity of tablet 00:00: mouth 2 [place] 00 (two) Medical times Branch daily. predniSONE 2020-0 Yes 10mg Take 10 mg U nivers 10 mg 2-04 by mouth 2 ity of tablet 00:00: (two) [place] 00 times Medical daily. Branch azithromyci 2020-0 Yes 250mg Take 250 U nivers n 250 mg 2-04 mg by ity of tablet 00:00: mouth [place] 00 daily. Medical Branch cefUROXime 2020-0 Yes 500mg Take 500 [place] 500 mg 2-04 mg by ity of tablet 00:00: mouth 2 00 (two) Medical times Branch daily. predniSONE 2020-0 Yes 10mg Take 10 mg U nivers 10 mg 2-04 by mouth 2 ity of tablet 00:00: (two) [place] 00 times Medical daily. Branch azithromyci 2020-0 Yes 250mg Take 250 U nivers n 250 mg 2-04 mg by ity of tablet 00:00: mouth 00 daily. Medical Branch cefUROXime 2020-0 Yes 500mg Take 500 [place] 500 mg 2-04 mg by ity of tablet 00:00: mouth 2 00 (two) Medical times Branch daily. predniSONE 2020-0 Yes 10mg Take 10 mg U nivers 10 mg 2-04 by mouth 2 ity of tablet 00:00: (two) [place] 00 times Medical daily. Branch azithromyci 2020-0 Yes 250mg Take 250 U nivers n 250 mg 2-04 mg by ity of tablet 00:00: mouth [place] 00 daily. Medical Branch cefUROXime 2020-0 Yes 500mg Take 500 [place] 500 mg 2-04 mg by ity of tablet 00:00: mouth 2 00 (two) Medical times Branch daily. predniSONE 2020-0 Yes 10mg Take 10 mg U nivers 10 mg 2-04 by mouth 2 ity of tablet 00:00: (two) [place] 00 times Medical daily. Branch azithromyci 2020-0 Yes 250mg Take 250 U nivers n 250 mg 2-04 mg by ity of tablet 00:00: mouth [place] 00 daily. Medical Branch cefUROXime 2020-0 Yes 500mg Take 500 [place] 500 mg 2-04 mg by ity of tablet 00:00: mouth 2 [place] 00 (two) Medical times Branch daily. predniSONE 2019-0 Yes 10mg Take 10 mg U nivers 10 mg 2-04 by mouth 2 ity of tablet 00:00: (two) [place] [address] times [facility] daily. Branch meloxicam Yes Univers 15 mg 1-20 ity of tablet 00:00: [place] [facility] meloxicam 2019- Yes Univers 15 mg 1-20 ity of tablet 00:00: [place] [facility] meloxicam 2019-0 Yes Univers 15 mg 1-20 ity of tablet 00:00: [address] meloxicam 2019-0 Yes Univers 15 mg 1-20 ity of tablet 00:00: [address] meloxicam 2019-0 Yes Univers 15 mg 1-20 ity of tablet 00:00: [address] meloxicam 2019- Yes Univers 15 mg 1-20 ity of tablet 00:00: [address] meloxicam 2019- Yes Univers 15 mg 1-20 ity of tablet 00:00: [address] meloxicam 2019-0 Yes Univers 15 mg 1-20 ity of tablet 00:00: [address] meloxicam 2019-0 Yes Univers 15 mg 1-20 ity of tablet 00:00: [place] [facility] meloxicam 2019-0 Yes Univers 15 mg 1-20 ity of tablet 00:00: [address] meloxicam 2019-0 Yes Univers 15 mg 1-20 ity of tablet 00:00: [address] meloxicam 2019-0 Yes Univers 15 mg 1-20 ity of tablet 00:00: [place] [facility] Metformin Metformin 2018- Yes Yao 1 tablet Common HCl HCl 2-10 [place] with a Spirit 00:00: meal - [facility] 00 [facility] metFORMIN 2019- Yes Univers 1,000 mg 2-10 ity of tablet 00:00: [address] metFORMIN 2019- Yes Univers 1,000 mg 2-10 ity of tablet 00:00: [address] metFORMIN 2019- Yes Univers 1,000 mg 2-10 ity of tablet 00:00: [address] metFORMIN 2019- Yes Univers 1,000 mg 2-10 ity of tablet 00:00: [facility] metFORMIN 2019-1 Yes Univers 1,000 mg 2-10 ity of tablet 00:00: [place] [facility] metFORMIN 2019-1 Yes Univers 1,000 mg 2-10 ity of tablet 00:00: [place] [facility] metFORMIN 2019-1 Yes Univers 1,000 mg 2-10 ity of tablet 00:00: [place] [facility] metFORMIN 2019- Yes Univers 1,000 mg 2-10 ity of tablet 00:00: [place] [facility] metFORMIN 2019-1 Yes Univers 1,000 mg 2-10 ity of tablet 00:00: [place] [facility] metFORMIN 2019-1 Yes Univers 1,000 mg 2-10 ity of tablet 00:00: [place] [facility] metFORMIN 2019-1 Yes Univers 1,000 mg 2-10 ity of tablet 00:00: [place] [facility] metFORMIN 2019- Yes Univers 1,000 mg 2-10 ity of tablet 00:00: [place] [facility] methylPREDN 2019-0 Yes [id number] 84mg Take 21 Univers ISolone 5-31 tablets by ity of (MEDROL, 00:00: mouth [place] ANTOINETTE,) 4 mg 00 SEE-INSTRU Med ical tablets CTIONS. Branch follow package directions methylPREDN 2019-0 Yes [id number] 84mg Take 21 Univers ISolone 5-31 tablets by ity of (MEDROL, 00:00: mouth [place] ANTOINETTE,) 4 mg 00 SEE-INSTRU Med ical tablets CTIONS. Branch follow package directions methylPREDN 2019-0 Yes [id number] 84mg Take 21 Univers ISolone 5-31 tablets by ity of (MEDROL, 00:00: mouth [place] ANTOINETTE,) 4 mg 00 SEE-INSTRU Med ical tablets CTIONS. Branch follow package directions methylPREDN 2019-0 Yes [id number] 84mg Take 21 Univers ISolone 5-31 tablets by ity of (MEDROL, 00:00: mouth [place] ANTOINETTE,) 4 mg 00 SEE-INSTRU Med ical tablets CTIONS. Branch follow package directions methylPREDN 2019-0 Yes [id number] 84mg Take 21 Univers ISolone 5-31 tablets by ity of (MEDROL, 00:00: mouth [place] ANTOINETTE,) 4 mg 00 SEE-INSTRU Med ical tablets CTIONS. Branch follow package directions methylPREDN 2019-0 Yes [id number] 84mg Take 21 Univers ISolone 5-31 tablets by ity of (MEDROL, 00:00: mouth [place] ANTOINETTE,) 4 mg 00 SEE-INSTRU Med ical tablets CTIONS. Branch follow package directions methylPREDN 2018-0 Yes [id number] 84mg Take 21 Univers ISolone 5-31 tablets by ity of (MEDROL, 00:00: mouth [place] ANTOINETTE,) 4 mg 00 SEE-INSTRU Med ical tablets CTIONS. Branch follow package directions methylPREDN Yes [id number] 84mg Take 21 Univers ISolone 5-31 tablets by ity of (MEDROL, 00:00: mouth [place] ANTOINETTE,) 4 mg 00 SEE-INSTRU Med ical tablets CTIONS. Branch follow package directions methylPREDN Yes [id number] 84mg Take 21 [facility] ISolone 5-31 tablets by ity of (MEDROL, 00:00: mouth [place] ANTOINETTE,) 4 mg 00 SEE-INSTRU Med ical tablets CTIONS. Branch follow package directions methylPREDN Yes [id number] 84mg Take 21 [facility] ISolone 5-31 tablets by ity of (MEDROL, 00:00: mouth [place] ANTOINETTE,) 4 mg 00 SEE-INSTRU Med ical tablets CTIONS. Branch follow package directions methylPREDN Yes [id number] 84mg Take 21 [facility] ISolone 5-31 tablets by ity of (MEDROL, 00:00: mouth [place] ANTOINETTE,) 4 mg 00 SEE-INSTRU Med ical tablets CTIONS. Branch follow package directions methylPREDN 2018- Yes [id number] 84mg Take 21 [facility] ISolone 5-31 tablets by ity of (MEDROL, 00:00: mouth [place] ANTOINETTE,) 4 mg 00 SEE-INSTRU Med ical tablets CTIONS. Branch follow package directions methylPREDN 2018-0 Yes [id number] 84mg Take 21 [facility] ISolone 5-31 tablets by ity of (MEDROL, 00:00: mouth [place] ANTOINETTE,) 4 mg 00 SEE-INSTRU Med ical tablets CTIONS. Branch follow package directions methylPREDN 2019-0 Yes [id number] 84mg Take 21 [facility] ISolone 5-31 tablets by ity of (MEDROL, 00:00: mouth [place] ANTOINETTE,) 4 mg 00 SEE-INSTRU Med ical tablets CTIONS. Branch follow package directions ACETAMINOPH Yes TAKE 1 [facility] EN-CODEINE 6-01 TABLET BY ity of 300-30 mg 00:00: MOUTH [place] tablet 00 EVERY 4 Medical (FOUR) Branch HOURS NEEDED FOR PAIN (SCALE 4-6) OR PAIN (SCALE 7-10). ACETAMINOPH Yes TAKE 1 [facility] EN-CODEINE 6-01 TABLET BY ity of 300-30 mg 00:00: MOUTH [place] tablet 00 EVERY 4 Medical (FOUR) Branch HOURS NEEDED FOR PAIN (SCALE 4-6) OR PAIN (SCALE 7-10). ACETAMINOPH Yes TAKE 1 [facility] EN-CODEINE 6-01 TABLET BY ity of 300-30 mg 00:00: MOUTH [place] tablet 00 EVERY 4 Medical (FOUR) Branch HOURS NEEDED FOR PAIN (SCALE 4-6) OR PAIN (SCALE 7-10). ACETAMINOPH Yes TAKE 1 [facility] EN-CODEINE 6-01 TABLET BY ity of 300-30 mg 00:00: MOUTH [place] tablet 00 EVERY 4 Medical (FOUR) Branch HOURS NEEDED FOR PAIN (SCALE 4-6) OR PAIN (SCALE 7-10). ACETAMINOPH Yes TAKE 1 [facility] EN-CODEINE 6-01 TABLET BY ity of 300-30 mg 00:00: MOUTH [place] tablet 00 EVERY 4 Medical (FOUR) Branch HOURS NEEDED FOR PAIN (SCALE 4-6) OR PAIN (SCALE 7-10). ACETAMINOPH Yes TAKE 1 [facility] EN-CODEINE 6-01 TABLET BY ity of 300-30 mg 00:00: MOUTH [place] tablet 00 EVERY 4 Medical (FOUR) Branch HOURS NEEDED FOR PAIN (SCALE 4-6) OR PAIN (SCALE 7-10). ACETAMINOPH Yes TAKE 1 [facility] EN-CODEINE 6-01 TABLET BY ity of 300-30 mg 00:00: MOUTH [place] tablet 00 EVERY 4 Medical (FOUR) Branch HOURS NEEDED FOR PAIN (SCALE 4-6) OR PAIN (SCALE 7-10). ACETAMINOPH Yes TAKE 1 [facility] EN-CODEINE 6-01 TABLET BY ity of 300-30 mg 00:00: MOUTH [place] tablet 00 EVERY 4 Medical (FOUR) Branch HOURS NEEDED FOR PAIN (SCALE 4-6) OR PAIN (SCALE 7-10). ACETAMINOPH Yes TAKE 1 [facility] EN-CODEINE 6-01 TABLET BY ity of 300-30 mg 00:00: MOUTH [place] tablet 00 EVERY 4 Medical (FOUR) Branch HOURS NEEDED FOR PAIN (SCALE 4-6) OR PAIN (SCALE 7-10). ACETAMINOPH Yes TAKE 1 [facility] EN-CODEINE 6-01 TABLET BY ity of 300-30 mg 00:00: MOUTH [place] tablet 00 EVERY 4 Medical (FOUR) Branch HOURS NEEDED FOR PAIN (SCALE 4-6) OR PAIN (SCALE 7-10). ACETAMINOPH Yes TAKE 1 [facility] EN-CODEINE 6-01 TABLET BY ity of 300-30 mg 00:00: MOUTH [place] tablet 00 EVERY 4 Medical (FOUR) Branch HOURS NEEDED FOR PAIN (SCALE 4-6) OR PAIN (SCALE 7-10). ACETAMINOPH Yes TAKE 1 [facility] EN-CODEINE 6-01 TABLET BY ity of 300-30 mg 00:00: MOUTH [place] tablet 00 EVERY 4 Medical (FOUR) Branch HOURS NEEDED FOR PAIN (SCALE 4-6) OR PAIN (SCALE 7-10). ACETAMINOPH Yes TAKE 1 [facility] EN-CODEINE 6-01 TABLET BY ity of 300-30 mg 00:00: MOUTH [place] tablet 00 EVERY 4 Medical (FOUR) Branch HOURS NEEDED FOR PAIN (SCALE 4-6) OR PAIN (SCALE 7-10). ACETAMINOPH Yes TAKE 1 [facility] EN-CODEINE 6-01 TABLET BY ity of 300-30 mg 00:00: MOUTH [place] tablet 00 EVERY 4 Medical (FOUR) Branch HOURS NEEDED FOR PAIN (SCALE 4-6) OR PAIN (SCALE 7-10). tamsulosin Yes .4mg Take 1 [facility] 0.4 mg 24 5-18 capsule by ity of hr capsule 00:00: mouth [place] 00 daily. Medical Branch tamsulosin 2017-0 Yes .4mg Take 1 [facility] 0.4 mg 24 5-18 capsule by ity of hr capsule 00:00: mouth [place] 00 daily. Medical Branch tamsulosin Yes .4mg Take 1 [facility] 0.4 mg 24 5-18 capsule by ity of hr capsule 00:00: mouth [place] 00 daily. Medical Branch tamsulosin 2017-0 Yes .4mg Take 1 [facility] 0.4 mg 24 5-18 capsule by ity of hr capsule 00:00: mouth [place] 00 daily. Medical Branch tamsulosin 2017-0 Yes .4mg Take 1 [facility] 0.4 mg 24 5-18 capsule by ity of hr capsule 00:00: mouth [place] 00 daily. Medical Branch tamsulosin 2017-0 Yes .4mg Take 1 [facility] 0.4 mg 24 5-18 capsule by ity of hr capsule 00:00: mouth [place] 00 daily. Medical Branch tamsulosin 2017-0 Yes .4mg Take 1 [facility] 0.4 mg 24 5-18 capsule by ity of hr capsule 00:00: mouth [place] 00 daily. Medical Branch tamsulosin 2017-0 Yes .4mg Take 1 [facility] 0.4 mg 24 5-18 capsule by ity of hr capsule 00:00: mouth [place] 00 daily. Medical Branch tamsulosin 2017-0 Yes .4mg Take 1 [facility] 0.4 mg 24 5-18 capsule by ity of hr capsule 00:00: mouth [place] 00 daily. Medical Branch tamsulosin 2017-0 Yes .4mg Take 1 [facility] 0.4 mg 24 5-18 capsule by ity of hr capsule 00:00: mouth [place] 00 daily. Medical Branch tamsulosin 2017-0 Yes .4mg Take 1 [facility] 0.4 mg 24 5-18 capsule by ity of hr capsule 00:00: mouth [place] 00 daily. Medical Branch tamsulosin 2017-0 Yes .4mg Take 1 [facility] 0.4 mg 24 5-18 capsule by ity of hr capsule 00:00: mouth [place] 00 daily. Medical Branch tamsulosin 2017-0 Yes .4mg Take 1 [facility] 0.4 mg 24 5-18 capsule by ity of hr capsule 00:00: mouth [place] 00 daily. Medical Branch tamsulosin 2017-0 Yes .4mg Take 1 [facility] 0.4 mg 24 5-18 capsule by ity of hr capsule 00:00: mouth [place] 00 daily. Medical Branch valsartan 2017-0 Yes [facility] 320 mg 4-04 ity of tablet 00:00: [place] 00 Medical Branch valsartan 2017-0 Yes [facility] 320 mg 4-04 ity of tablet 00:00: [place] 00 Medical Branch valsartan 2017-0 Yes [facility] 320 mg 4-04 ity of tablet 00:00: [place] [facility] valsartan 2017-0 Yes [facility] 320 mg 4-04 ity of tablet 00:00: [place] [facility] valsartan 2017-0 Yes [facility] 320 mg 4-04 ity of tablet 00:00: [place] [id number] Medical Branch valsartan 2017-0 Yes [facility] 320 mg 4-04 ity of tablet 00:00: [place] [facility] valsartan 2017-0 Yes [facility] 320 mg 4-04 ity of tablet 00:00: [place] [id number] Medical Branch valsartan 2017-0 Yes [facility] 320 mg 4-04 ity of tablet 00:00: [place] [facility] valsartan 2017-0 Yes [facility] 320 mg 4-04 ity of tablet 00:00: [address] Branch valsartan 2017-0 Yes [facility] 320 mg 4-04 ity of tablet 00:00: [place] [facility] Branch valsartan 2017-0 Yes [facility] 320 mg 4-04 ity of tablet 00:00: [address] valsartan 2017-0 Yes [facility] 320 mg 4-04 ity of tablet 00:00: [address] Branch valsartan 2017-0 Yes [facility] 320 mg 4-04 ity of tablet 00:00: [address] valsartan 2017-0 Yes [facility] 320 mg 4-04 ity of tablet 00:00: [address] amLODIPine 2017-0 Yes 5mg Take 5 mg [facility] [place] 5 mg tablet 3-29 by mouth ity of 00:00: daily. [address] amLODIPine 2017-0 Yes 5mg Take 5 mg [facility] [place] 5 mg tablet 3-29 by mouth ity of 00:00: daily. [address] amLODIPine 2017-0 Yes 5mg Take 5 mg [facility] [place] 5 mg tablet 3-29 by mouth ity of 00:00: daily. [address] amLODIPine 2017-0 Yes 5mg Take 5 mg [facility] [place] 5 mg tablet 3-29 by mouth ity of 00:00: daily. [address] amLODIPine 2017-0 Yes 5mg Take 5 mg [facility] [place] 5 mg tablet 3-29 by mouth ity of 00:00: daily. [address] amLODIPine 2017-0 Yes 5mg Take 5 mg [facility] [place] 5 mg tablet 3-29 by mouth ity of 00:00: daily. [place] [facility] amLODIPine 2017-0 Yes 5mg Take 5 mg [facility] [place] 5 mg tablet 3-29 by mouth ity of 00:00: daily. [place] [facility] amLODIPine 2017-0 Yes 5mg Take 5 mg [facility] [place] 5 mg tablet 3-29 by mouth ity of 00:00: daily. [place] [facility] amLODIPine 2017-0 Yes 5mg Take 5 mg [facility] [place] 5 mg tablet 3-29 by mouth ity of 00:00: daily. [place] [facility] amLODIPine 2017-0 Yes 5mg Take 5 mg [facility] [place] 5 mg tablet 3-29 by mouth ity of 00:00: daily. [place] [facility] amLODIPine 2017-0 Yes 5mg Take 5 mg [facility] [place] 5 mg tablet 3-29 by mouth ity of 00:00: daily. [place] [facility] amLODIPine 2017-0 Yes 5mg Take 5 mg [facility] [place] 5 mg tablet 3-29 by mouth ity of 00:00: daily. [place] [facility] amLODIPine 2017-0 Yes 5mg Take 5 mg [facility] [place] 5 mg tablet 3-29 by mouth ity of 00:00: daily. [place] [facility] amLODIPine 2017-0 Yes 5mg Take 5 mg [facility] [place] 5 mg tablet 3-29 by mouth ity of 00:00: daily. [place] [facility] Branch metFORMIN 2017-0 Yes TAKE 1 Univer [facility] 500 mg 3-27 TABLET BY ity of tablet 00:00: MOUTH TWICE A Medical DAY Branch metFORMIN 2017-0 Yes TAKE 1 [facility] 500 mg 3-27 TABLET BY ity of tablet 00:00: MOUTH TWICE A Medical DAY Branch metFORMIN 2017-0 Yes TAKE 1 [facility] 500 mg 3-27 TABLET BY ity of tablet 00:00: MOUTH TWICE A Medical DAY Branch metFORMIN 2017-0 Yes TAKE 1 [facility] 500 mg 3-27 TABLET BY ity of tablet 00:00: MOUTH TWICE A Medical DAY Branch metFORMIN 2017-0 Yes TAKE 1 [facility] 500 mg 3-27 TABLET BY ity of tablet 00:00: MOUTH TWICE A Medical DAY Branch metFORMIN 2017-0 Yes TAKE 1 [facility] 500 mg 3-27 TABLET BY ity of tablet 00:00: MOUTH TWICE A Medical DAY Branch metFORMIN 2017-0 Yes TAKE 1 [facility] 500 mg 3-27 TABLET BY ity of tablet 00:00: MOUTH TWICE A Medical DAY Branch metFORMIN Yes TAKE 1 [facility] 500 mg 3-27 TABLET BY ity of tablet 00:00: MOUTH TWICE A Medical DAY Branch metFORMIN Yes TAKE 1 [facility] 500 mg 3-27 TABLET BY ity of tablet 00:00: MOUTH TWICE A Medical DAY Branch metFORMIN Yes TAKE 1 [facility] 500 mg 3-27 TABLET BY ity of tablet 00:00: MOUTH TWICE A Medical DAY Branch metFORMIN Yes TAKE 1 [facility] 500 mg 3-27 TABLET BY ity of tablet 00:00: MOUTH TWICE A Medical DAY Branch metFORMIN Yes TAKE 1 [facility] 500 mg 3-27 TABLET BY ity of tablet 00:00: MOUTH TWICE A Medical DAY Branch metFORMIN Yes TAKE 1 [facility] 500 mg 3-27 TABLET BY ity of tablet 00:00: MOUTH TWICE A Medical DAY Branch metFORMIN Yes TAKE 1 [facility] 500 mg 3-27 TABLET BY ity of tablet 00:00: MOUTH 00 TWICE A Medical DAY Branch AZOPT 1 % Yes 1 DROP IN Uni vers ophthalmic 2-22 BOTH EYES ity of suspension 00:00: TWICE [place] DAY Medical DISPENSE Branch 15ML BOTTLE BRAND MEDICALLY NECESSARY. AZOPT 1 % Yes 1 DROP IN Uni vers ophthalmic 2-22 BOTH EYES ity of suspension 00:00: TWICE [place] Medical DISPENSE Branch 15ML BOTTLE BRAND MEDICALLY NECESSARY. AZOPT 1 % Yes 1 DROP IN Uni vers ophthalmic 2-22 BOTH EYES ity of suspension 00:00: TWICE A [place] 00 DAY Medical DISPENSE Branch 15ML BOTTLE BRAND MEDICALLY NECESSARY. AZOPT 1 % Yes 1 DROP IN Uni vers ophthalmic 2-22 BOTH EYES ity of suspension 00:00: TWICE A [place] 00 DAY Medical DISPENSE Branch 15ML BOTTLE BRAND MEDICALLY NECESSARY. AZOPT 1 % Yes 1 DROP IN Uni vers ophthalmic 2-22 BOTH EYES ity of suspension 00:00: TWICE A [place] DAY Medical DISPENSE Branch 15ML BOTTLE BRAND MEDICALLY NECESSARY. AZOPT 1 % Yes 1 DROP IN Uni vers ophthalmic 2-22 BOTH EYES ity of suspension 00:00: TWICE A [place] 00 DAY Medical DISPENSE Branch 15ML BOTTLE BRAND MEDICALLY NECESSARY. AZOPT 1 % Yes 1 DROP IN Uni vers ophthalmic 2-22 BOTH EYES ity of suspension 00:00: TWICE A [place] 00 DAY Medical DISPENSE Branch 15ML BOTTLE BRAND MEDICALLY NECESSARY. AZOPT 1 % Yes 1 DROP IN Uni vers ophthalmic 2-22 BOTH EYES ity of suspension 00:00: TWICE A [place] 00 DAY Medical DISPENSE Branch 15ML BOTTLE BRAND MEDICALLY NECESSARY. AZOPT 1 % Yes 1 DROP IN Uni vers ophthalmic 2-22 BOTH EYES ity of suspension 00:00: TWICE A [place] 00 DAY Medical DISPENSE Branch 15ML BOTTLE BRAND MEDICALLY NECESSARY. AZOPT 1 % Yes 1 DROP IN Uni vers ophthalmic 2-22 BOTH EYES ity of suspension 00:00: TWICE A [place] 00 DAY Medical DISPENSE Branch 15ML BOTTLE BRAND MEDICALLY NECESSARY. AZOPT 1 % Yes 1 DROP IN Uni vers ophthalmic 2-22 BOTH EYES ity of suspension 00:00: TWICE A [place] 00 DAY Medical DISPENSE Branch 15ML BOTTLE BRAND MEDICALLY NECESSARY. AZOPT 1 % Yes 1 DROP IN Uni vers ophthalmic 2-22 BOTH EYES ity of suspension 00:00: TWICE A [place] 00 DAY Medical DISPENSE Branch 15ML BOTTLE BRAND MEDICALLY NECESSARY. AZOPT 1 % Yes 1 DROP IN Uni vers ophthalmic 2-22 BOTH EYES ity of suspension 00:00: TWICE A [place] 00 DAY Medical DISPENSE Branch 15ML BOTTLE BRAND MEDICALLY NECESSARY. AZOPT 1 % Yes 1 DROP IN Uni vers ophthalmic 2-22 BOTH EYES ity of suspension 00:00: TWICE A [place] 00 DAY Medical DISPENSE Branch 15ML BOTTLE BRAND MEDICALLY NECESSARY. LUIS Yes PUT ONE Univer s 0.2-0.5 % 2-21 DROP INTO ity o f ophthalmic 00:00: BOTH EYES [place] drops 00 TWICE A Medical DAY Branch TRICIA 2017-0 Yes PUT ONE Univers 0.01 % 2-21 DROP INTO ity of ophthalmic 00:00: EACH EYE [place] drops 00 NIGHTLY Medical Branch LUIS 2017-0 Yes PUT ONE Univer [facility] 0.2-0.5 % 2-21 DROP INTO ity o f ophthalmic 00:00: BOTH EYES [place] drops 00 TWICE A Medical DAY Branch [facility] Yes PUT ONE Univers 0.01 % 2-21 DROP INTO ity of ophthalmic 00:00: [facility] [place] [facility] 0.2-0.5 % 2-21 DROP INTO ity o f ophthalmic 00:00: BOTH EYES [place] drops 00 TWICE A Medical DAY [facility] Yes PUT ONE Univers 0.01 % 2-21 DROP INTO ity of ophthalmic 00:00: [facility] [place] [facility] 0.2-0.5 % 2-21 DROP INTO ity o f ophthalmic 00:00: BOTH EYES [place] drops 00 TWICE A Medical DAY [facility] Yes PUT ONE Univers 0.01 % 2-21 DROP INTO ity of ophthalmic 00:00: [facility] [place] [facility] 0.2-0.5 % 2-21 DROP INTO ity o f ophthalmic 00:00: BOTH EYES [place] drops 00 TWICE A Medical DAY [facility] Yes PUT ONE Univers 0.01 % 2-21 DROP INTO ity of ophthalmic 00:00: EACH EYE [place] [facility] 0.2-0.5 % 2-21 DROP INTO ity o f ophthalmic 00:00: BOTH EYES [place] drops 00 TWICE A Medical DAY [facility] Yes PUT ONE Univers 0.01 % 2-21 DROP INTO ity of ophthalmic 00:00[facility] [place] [facility] 0.[facility] % 2-21 DROP INTO ity of ophthalmic 00:00: [facility]ACH [facility]YE [place] [facility] 0.2-0.5 % 2-21 DROP INTO ity o f ophthalmic 00:00: BOTH EYES [place] drops 00 TWICE A Medical DAY [facility] Yes PUT ONE Univer s 0.2-0.5 % 2-21 DROP INTO ity o f ophthalmic 00:00: BOTH EYES [place] drops 00 TWICE A Medical DAY [facility] Yes PUT ONE Univers 0.01 % 2-21 DROP INTO ity of ophthalmic 00:00: EACH EYE [place] [facility] 0.2-0.5 % 2-21 DROP INTO ity o f ophthalmic 00:00: BOTH EYES [place] drops 00 TWICE A [facility] DAY [facility] Yes PUT ONE Univers 0.01 % 2-21 DROP INTO ity of ophthalmic 00:00: [facility] [place] [facility] 0.2-0.5 % 2-21 DROP INTO ity o f ophthalmic 00:00: BOTH EYES [place] drops 00 TWICE A [facility] DAY [facility] Yes PUT ONE Univers 0.01 % 2-21 DROP INTO ity of ophthalmic 00:00: EACH EYE [place] drops [facility] Yes PUT ONE Univer s 0.2-0.5 % 2-21 DROP INTO ity o f ophthalmic 00:00: BOTH EYES [place] drops 00 TWICE A [facility] DAY [facility] Yes PUT ONE Univers 0.01 % 2-21 DROP INTO ity of ophthalmic 00:00: EACH EYE [place] drops [facility] Yes PUT ONE Univer s 0.2-0.5 % 2-21 DROP INTO ity o f ophthalmic 00:00: BOTH EYES [place] drops 00 TWICE A [facility] DAY [facility] Yes PUT ONE Univers 0.01 % 2-21 DROP INTO ity of ophthalmic 00:00: EACH EYE [place] drops [facility] Yes PUT ONE Univer s 0.2-0.5 % 2-21 DROP INTO ity o f ophthalmic 00:00: BOTH EYES [place] drops 00 TWICE A [facility] DAY [facility] Yes PUT ONE Univers 0.01 % 2-21 DROP INTO ity of ophthalmic 00:00: EACH EYE [place] drops 00 [facility] Yes PUT ONE Univers 0.01 % 2-21 DROP INTO ity of ophthalmic 00:00: EACH EYE [place] drops NIGHTLY Medical Branch COMBIGAN Yes PUT ONE Univer s 0.2-0.5 % 2-21 DROP INTO ity o f ophthalmic 00:00: BOTH EYES [place] drops 00 TWICE A Medical DAY Branch metoprolol Yes TAKE 1 Unive rs tartrate 50 2-06 TABLET BY ity of mg tablet 00:00: MOUTH TWICE A Medical DAY Branch metoprolol Yes TAKE 1 [facility] rs tartrate 50 2-06 TABLET BY ity of mg tablet 00:00: MOUTH TWICE A Medical DAY Branch metoprolol Yes TAKE 1 Un[facility] rs tartrate 50 2-06 TABLET BY ity of mg tablet 00:00: MOUTH TWICE A Medical DAY Branch metoprolol Yes TAKE 1 Un[facility] rs tartrate 50 2-06 TABLET BY ity of mg tablet 00:00: MOUTH TWICE A Medical DAY Branch metoprolol Yes TAKE 1 Un[facility] rs tartrate 50 2-06 TABLET BY ity of mg tablet 00:00: MOUTH TWICE A Medical DAY Branch metoprolol Yes TAKE 1 Un[facility] rs tartrate 50 2-06 TABLET BY ity of mg tablet 00:00: MOUTH TWICE A Medical DAY Branch metoprolol Yes TAKE 1 Un[facility] rs tartrate 50 2-06 TABLET BY ity of mg tablet 00:00: MOUTH TWICE A Medical DAY Branch metoprolol Yes TAKE 1 Un[facility] rs tartrate 50 2-06 TABLET BY ity of mg tablet 00:00: MOUTH TWICE A Medical DAY Branch metoprolol Yes TAKE 1 Un[facility] rs tartrate 50 2-06 TABLET BY ity of mg tablet 00:00: MOUTH 00 TWICE A Medical DAY Branch metoprolol Yes TAKE 1 Unive rs tartrate 50 2-06 TABLET BY ity of mg tablet 00:00: MOUTH TWICE A Medical DAY Branch metoprolol Yes TAKE 1 Unive rs tartrate 50 2-06 TABLET BY ity of mg tablet 00:00: MOUTH TWICE A Medical DAY Branch metoprolol Yes TAKE 1 Un[facility] rs tartrate 50 2-06 TABLET BY ity of mg tablet 00:00: MOUTH TWICE A Medical DAY Branch metoprolol Yes TAKE 1 Unive rs tartrate 50 2-06 TABLET BY ity of mg tablet 00:00: MOUTH [place] 00 TWICE A Medical DAY Branch metoprolol Yes TAKE 1 Unive rs tartrate 50 2-06 TABLET BY ity of mg tablet 00:00: MOUTH [place] 00 TWICE A Medical DAY Branch CIALIS 5 mg Yes TAKE 1 Univ ers tablet 2-03 TABLET BY ity of 00:00: MOUTH ONCE [place] 00 A DAY Medical PRIOR TO Branch ANTICIPATE D ACTIVITY, NOT MORE THAN ONCE DAILY CIALIS 5 mg Yes TAKE 1 Univ ers tablet 2-03 TABLET BY ity of 00:00: MOUTH ONCE [place] 00 A DAY Medical PRIOR TO Branch ANTICIPATE D ACTIVITY, NOT MORE THAN ONCE DAILY CIALIS 5 mg Yes TAKE 1 Univ ers tablet 2-03 TABLET BY ity of 00:00: MOUTH ONCE [place] 00 A DAY Medical PRIOR TO Branch ANTICIPATE D ACTIVITY, NOT MORE THAN ONCE DAILY CIALIS 5 mg Yes TAKE 1 Univ ers tablet 2-03 TABLET BY ity of 00:00: MOUTH ONCE [place] 00 A DAY Medical PRIOR TO Branch ANTICIPATE D ACTIVITY, NOT MORE THAN ONCE DAILY CIALIS 5 mg Yes TAKE 1 Univ ers tablet 2-03 TABLET BY ity of 00:00: MOUTH ONCE [place] 00 A DAY Medical PRIOR TO Branch ANTICIPATE D ACTIVITY, NOT MORE THAN ONCE DAILY CIALIS 5 mg Yes TAKE 1 Univ ers tablet 2-03 TABLET BY ity of 00:00: MOUTH ONCE [place] 00 A DAY Medical PRIOR TO Branch ANTICIPATE D ACTIVITY, NOT MORE THAN ONCE DAILY CIALIS 5 mg Yes TAKE 1 Univ ers tablet 2-03 TABLET BY ity of 00:00: MOUTH ONCE [place] 00 A DAY Medical PRIOR TO Branch ANTICIPATE D ACTIVITY, NOT MORE THAN ONCE DAILY CIALIS 5 mg Yes TAKE 1 Univ ers tablet 2-03 TABLET BY ity of 00:00: MOUTH ONCE [place] 00 A DAY Medical PRIOR TO Branch ANTICIPATE D ACTIVITY, NOT MORE THAN ONCE DAILY CIALIS 5 mg Yes TAKE 1 Univ ers tablet 2-03 TABLET BY ity of 00:00: MOUTH ONCE [place] 00 A DAY Medical PRIOR TO Branch ANTICIPATE D ACTIVITY, NOT MORE THAN ONCE DAILY CIALIS 5 mg Yes TAKE 1 Univ ers tablet 2-03 TABLET BY ity of 00:00: MOUTH ONCE [place] 00 A DAY Medical PRIOR TO Branch ANTICIPATE D ACTIVITY, NOT MORE THAN ONCE DAILY CIALIS 5 mg Yes TAKE 1 [facility] ers tablet 2-03 TABLET BY ity of 00:00: MOUTH ONCE [place] 00 A DAY Medical PRIOR TO Branch ANTICIPATE D ACTIVITY, NOT MORE THAN ONCE DAILY CIALIS 5 mg Yes TAKE 1 [facility] ers tablet 2-03 TABLET BY ity of 00:00: MOUTH ONCE [place] 00 A DAY Medical PRIOR TO Branch ANTICIPATE D ACTIVITY, NOT MORE THAN ONCE DAILY CIALIS 5 mg Yes TAKE 1 Univ ers tablet 2-03 TABLET BY ity of 00:00: MOUTH ONCE [place] 00 A DAY Medical PRIOR TO Branch ANTICIPATE D ACTIVITY, NOT MORE THAN ONCE DAILY CIALIS 5 mg Yes TAKE 1 [facility] ers tablet 2-03 TABLET BY ity of 00:00: MOUTH ONCE [place] 00 A DAY Medical PRIOR TO Branch ANTICIPATE D ACTIVITY, NOT MORE THAN ONCE DAILY gabapentin Yes TAKE ONE [facility] 300 mg 1-23 CAPSULE BY ity of capsule 00:00: MOUTH [place] 00 TWICE A Medical DAY Branch gabapentin Yes TAKE ONE [facility] 300 mg 1-23 CAPSULE BY ity of capsule 00:00: MOUTH [place] 00 TWICE A Medical DAY Branch valsartan-h Yes 1{tbl} Take 1 [place] ydrochlorot 1-23 tablet by ity of hiazide 00:00: mouth [place] 320-25 mg 00 daily. Medical per tablet Branch valsartan-h Yes 1{tbl} Take 1 [facility] [place] ydrochlorot 1-23 tablet by ity of hiazide 00:00: mouth [place] 320-25 mg 00 daily. Medical per tablet Branch gabapentin Yes TAKE ONE [facility] 300 mg 1-23 CAPSULE BY ity of capsule 00:00: MOUTH [place] 00 TWICE A Medical DAY Branch valsartan-h Yes 1{tbl} Take 1 [facility] [place] ydrochlorot 1-23 tablet by ity of hiazide 00:00: mouth [place] 320-25 mg 00 daily. Medical per tablet Branch gabapentin Yes TAKE ONE [facility] 300 mg 1-23 CAPSULE BY ity of capsule 00:00: MOUTH [place] 00 TWICE A Medical DAY Branch valsartan-h Yes 1{tbl} Take 1 [facility] [place] ydrochlorot 1-23 tablet by ity of hiazide 00:00: mouth [place] 320-25 mg 00 daily. Medical per tablet Branch gabapentin Yes TAKE ONE [facility] 300 mg 1-23 CAPSULE BY ity of capsule 00:00: MOUTH [place] 00 TWICE A Medical DAY Branch valsartan-h Yes 1{tbl} Take 1 [facility] [place] ydrochlorot 1-23 tablet by ity of hiazide 00:00: mouth [place] 320-25 mg 00 daily. Medical per tablet Branch gabapentin Yes TAKE ONE [facility] 300 mg 1-23 CAPSULE BY ity of capsule 00:00: MOUTH [place] 00 TWICE A Medical DAY Branch valsartan-h Yes 1{tbl} Take 1 [facility] [place] ydrochlorot 1-23 tablet by ity of hiazide 00:00: mouth [place] 320-25 mg 00 daily. Medical per tablet Branch gabapentin Yes TAKE ONE [facility] 300 mg 1-23 CAPSULE BY ity of capsule 00:00: MOUTH [place] 00 TWICE A Medical DAY Branch valsartan-h Yes 1{tbl} Take 1 [facility] [place] ydrochlorot 1-23 tablet by ity of hiazide 00:00: mouth [place] 320-25 mg 00 daily. Medical per tablet Branch gabapentin Yes TAKE ONE [facility] 300 mg 1-23 CAPSULE BY ity of capsule 00:00: MOUTH [place] 00 TWICE A Medical DAY Branch gabapentin Yes TAKE ONE [facility] 300 mg 1-23 CAPSULE BY ity of capsule 00:00: MOUTH [place] 00 TWICE A Medical DAY Branch valsartan-h Yes 1{tbl} Take 1 [place] ydrochlorot 1-23 tablet by ity of hiazide 00:00: mouth [place] 320-25 mg 00 daily. Medical per tablet Branch valsartan-h Yes 1{tbl} Take 1 [place] ydrochlorot 1-23 tablet by ity of hiazide 00:00: mouth [place] 320-25 mg 00 daily. Medical per tablet Branch gabapentin Yes TAKE ONE [facility] 300 mg 1-23 CAPSULE BY ity of capsule 00:00: MOUTH [place] 00 TWICE A Medical DAY Branch valsartan-h Yes 1{tbl} Take 1 [place] ydrochlorot 1-23 tablet by ity of hiazide 00:00: mouth [place] 320-25 mg 00 daily. Medical per tablet Branch gabapentin Yes TAKE ONE [facility] 300 mg 1-23 CAPSULE BY ity of capsule 00:00: MOUTH [place] 00 TWICE A Medical DAY Branch valsartan-h Yes 1{tbl} Take 1 [place] ydrochlorot 1-23 tablet by ity of hiazide 00:00: mouth [place] 320-25 mg 00 daily. Medical per tablet Branch gabapentin Yes TAKE ONE [facility] 300 mg 1-23 CAPSULE BY ity of capsule 00:00: MOUTH [place] 00 TWICE A Medical DAY Branch valsartan-h Yes 1{tbl} Take 1 [facility] [place] ydrochlorot 1-23 tablet by ity of hiazide 00:00: mouth [place] 320-25 mg 00 daily. Medical per tablet Branch gabapentin Yes TAKE ONE [facility] 300 mg 1-23 CAPSULE BY ity of capsule 00:00: MOUTH [place] 00 TWICE A Medical DAY Branch valsartan-h Yes 1{tbl} Take 1 [place] ydrochlorot 1-23 tablet by ity of hiazide 00:00: mouth [place] 320-25 mg 00 daily. Medical per tablet Branch gabapentin Yes TAKE ONE [facility] 300 mg 1-23 CAPSULE BY ity of capsule 00:00: MOUTH [place] 00 TWICE A Medical DAY Branch valsartan-h Yes 1{tbl} Take 1 [place] ydrochlorot 1-23 tablet by ity of hiazide 00:00: mouth [place] 320-25 mg 00 daily. Medical per tablet Branch ALLOPURINOL No 2 tab qd Me [facility] 100 MG TABS 5-08 l 00:00: ALLOPURINOL Yes 1 po qd [facility] 300 MG TABS 5-08 l 00:00: ALLOPURINOL Yes 1 tab qd Me [facility] 100 MG TABS 3-27 l 00:00: METOPROLOL Yes per other Me [facility] SUCCINATE 3-13 md l ER 50 MG 00:00: [place] [id number] FUROSEMIDE Yes per other Me mor[facility] 40 MG TABS 3-13 md l 00:00: [place] 00 TRAMADOL Yes per other [place] HCL 50 MG 3-13 md l TABS 00:00: (TRAMADOL 00 HCL TABS) VALSARTAN-H Yes per other [facility] YDROCHLOROT 3-13 md l HIAZIDE 00:00: 320-12.5 MG 00 TABS OMEGA XL Yes per othe Mem[facility] ia 3-13 md l 00:00: VITAMIN D Yes per other [facility] 1000 UNIT 3-13 md l CAPS 00:00: INDOMETHACI Yes per other M [facility] N ER 75 MG 3-13 md l CR-CAPS 00:00: VITAMIN B Yes per other [facility] SUPER MAXI 3-13 md l COMPLEX 00:00: (B 00 COMPLEX VITAMINS) COLCRYS 0.6 Yes 1 tab q 12 [facility] MG TABS 3-13 hourly l 00:00: Rosuvastati Rosuvastati Yes Yao 1 tablet Common n Calcium n Calcium [facility] Aspirin 81 Aspirin 81 Yes Yao 1 tablet Common [facility] Gabapentin Gabapentin Yes Yao TAKE ONE [facility] CAPSULE BY [facility] MOUTH - [facility] BEFORE [facility] Azopt Azopt Yes Yao 1 drop [facility] - [facility] eye [facility] Valsartan Valsartan Yes Yao 1 tablet Common [facility] Lorazepam Lorazepam Yes Yao as Com mon [facility] directed [facility] Metoprolol Metoprolol Yes Yao 1 tablet Common Tartrate Tartrate [facility] Combigan Combigan Yes Yao 1 drop Com mon [facility] - [facility] eye [facility] Tramadol Tramadol Yes Yao 1 tablet C ommon HCl HCl Watters as needed [facility] Lumigan Lumigan Yes Yao 1 drop Commo n [facility] affected - [facility] eye in the [facility] Amlodipine Amlodipine Yes Yao 1 tablet Common Besylate Besylate [facility] traMADol traMADol No 1{table QID HCl 50 MG HCl 50 MG t_as_ne eded} LORazepam LORazepam No 0.5 MG 0.5 MG Rosuvastati Rosuvastati No 1{table n Calcium n Calcium t} 20 MG 20 MG Rosuvastati Rosuvastati No 1{table n Calcium n Calcium t} 20 MG 20 MG Valsartan Valsartan No 1{table QD 320 MG 320 MG t} metFORMIN metFORMIN No 1{table metFORMIN HCl 1000 MG HCl 1000 MG t_with_ HCl 1000 a_meal} MG amLODIPine amLODIPine No 1{table QD amLODIPine Besylate 10 Besylate 10 t} Besylate MG MG 10 MG metFORMIN metFORMIN No metFORMIN HCl 1000 MG HCl 1000 MG HCl 1000 MG Combigan Combigan No 1{drop_ BID Combigan 0.2-0.5 % 0.2-0.5 % into_af 0.2-0.5 % fected_ eye} Lumigan Lumigan No 1{drop_ QD Lumigan 0.01 % 0.01 % into_af 0.01 % fected_ eye_in_ the_eve tavo} Gabapentin Gabapentin No Gabapentin 300 MG 300 MG 300 MG Metoprolol Metoprolol No 1{table BID Metoprolol Tartrate 50 Tartrate 50 t} Tartrate MG MG 50 MG amLODIPine amLODIPine No 1{table QD amLODIPine Besylate 10 Besylate 10 t} Besylate MG MG 10 MG Metoprolol Metoprolol No 1{table BID Metoprolol Tartrate 50 Tartrate 50 t} Tartrate MG MG 50 MG Azopt 1 % Azopt 1 % No 1{drop_ TID Azopt 1 % into_af fected_ eye} Aspirin 81 Aspirin 81 No 1{table QD Aspirin 81 81 MG 81 MG t} 81 MG traMADol traMADol No 1{table QID traMADol HCl 50 MG HCl 50 MG t_as_ne HCl 50 MG eded} LORazepam LORazepam No LORazepam 0.5 MG 0.5 MG 0.5 MG Rosuvastati Rosuvastati No 1{table Rosuvastat n Calcium n Calcium t} in Calcium 20 MG 20 MG 20 MG Rosuvastati Rosuvastati No 1{table Rosuvastat n Calcium n Calcium t} in Calcium 20 MG 20 MG 20 MG Valsartan Valsartan No 1{table QD Valsartan 320 MG 320 MG t} 320 MG Valsartan Valsartan No 1{table QD Valsartan 320 MG 320 MG t} 320 MG amLODIPine amLODIPine No 1{table QD amLODIPine Besylate 10 Besylate 10 t} Besylate MG MG 10 MG amLODIPine amLODIPine No amLODIPine Besylate 10 Besylate 10 Besylate MG MG 10 MG metFORMIN metFORMIN No 1{table metFORMIN HCl 1000 MG HCl 1000 MG t_with_ HCl 1000 a_meal} MG Rosuvastati Rosuvastati No 1{table Rosuvastat n Calcium n Calcium t} in Calcium 20 MG 20 MG 20 MG LORazepam LORazepam No LORazepam 0.5 MG 0.5 MG 0.5 MG Aspirin 81 Aspirin 81 No 1{table QD Aspirin 81 81 MG 81 MG t} 81 MG Lumigan Lumigan No 1{drop_ QD Lumigan 0.01 % 0.01 % into_af 0.01 % fected_ eye_in_ the_eve tavo} Combigan Combigan No 1{drop_ BID Combigan 0.2-0.5 % 0.2-0.5 % into_af 0.2-0.5 % fected_ eye} Azopt 1 % Azopt 1 % No 1{drop_ TID Azopt 1 % into_af fected_ eye} Rosuvastati Rosuvastati No 1{table Rosuvastat n Calcium n Calcium t} in Calcium 20 MG 20 MG 20 MG Metoprolol Metoprolol No 1{table BID Metoprolol Tartrate 50 Tartrate 50 t} Tartrate MG MG 50 MG Metoprolol Metoprolol No Metoprolol Tartrate 50 Tartrate 50 Tartrate MG MG 50 MG metFORMIN metFORMIN No metFORMIN HCl 1000 MG HCl 1000 MG HCl 1000 MG Gabapentin Gabapentin No Gabapentin 300 MG 300 MG 300 MG traMADol traMADol No 1{table QID traMADol HCl 50 MG HCl 50 MG t_as_ne HCl 50 MG eded} Rosuvastati Rosuvastati No Rosuvastat n Calcium n Calcium in Calcium 20 MG 20 MG 20 MG Valsartan Valsartan No 1{table QD Valsartan 320 MG 320 MG t} 320 MG amLODIPine amLODIPine No 1{table QD amLODIPine Besylate 10 Besylate 10 t} Besylate MG MG 10 MG amLODIPine amLODIPine No amLODIPine Besylate 10 Besylate 10 Besylate MG MG 10 MG metFORMIN metFORMIN No 1{table metFORMIN HCl 1000 MG HCl 1000 MG t_with_ HCl 1000 a_meal} MG Rosuvastati Rosuvastati No 1{table Rosuvastat n Calcium n Calcium t} in Calcium 20 MG 20 MG 20 MG LORazepam LORazepam No LORazepam 0.5 MG 0.5 MG 0.5 MG Aspirin 81 Aspirin 81 No 1{table QD Aspirin 81 81 MG 81 MG t} 81 MG Lumigan Lumigan No 1{drop_ QD Lumigan 0.01 % 0.01 % into_af 0.01 % fected_ eye_in_ the_eve tavo} Combigan Combigan No 1{drop_ BID Combigan 0.2-0.5 % 0.2-0.5 % into_af 0.2-0.5 % fected_ eye} Azopt 1 % Azopt 1 % No 1{drop_ TID Azopt 1 % into_af fected_ eye} Rosuvastati Rosuvastati No 1{table Rosuvastat n Calcium n Calcium t} in Calcium 20 MG 20 MG 20 MG Metoprolol Metoprolol No 1{table BID Metoprolol Tartrate 50 Tartrate 50 t} Tartrate MG MG 50 MG Metoprolol Metoprolol No Metoprolol Tartrate 50 Tartrate 50 Tartrate MG MG 50 MG metFORMIN metFORMIN No metFORMIN HCl 1000 MG HCl 1000 MG HCl 1000 MG Gabapentin Gabapentin No Gabapentin 300 MG 300 MG 300 MG traMADol traMADol No 1{table QID traMADol HCl 50 MG HCl 50 MG t_as_ne HCl 50 MG eded} Rosuvastati Rosuvastati No Rosuvastat n Calcium n Calcium in Calcium 20 MG 20 MG 20 MG Rosuvastati Rosuvastati No Rosuvastat n Calcium n Calcium in Calcium 20 MG 20 MG 20 MG Metoprolol Metoprolol No 1{table BID Metoprolol Tartrate 50 Tartrate 50 t} Tartrate MG MG 50 MG traMADol traMADol No 1{table QID traMADol HCl 50 MG HCl 50 MG t_as_ne HCl 50 MG eded} amLODIPine amLODIPine No 1{table QD amLODIPine Besylate 10 Besylate 10 t} Besylate MG MG 10 MG Lumigan Lumigan No 1{drop_ QD Lumigan 0.01 % 0.01 % into_af 0.01 % fected_ eye_in_ the_eve tavo} Valsartan Valsartan No Valsartan 320 MG 320 MG 320 MG Rosuvastati Rosuvastati No 1{table Rosuvastat n Calcium n Calcium t} in Calcium 20 MG 20 MG 20 MG Gabapentin Gabapentin No Gabapentin 300 MG 300 MG 300 MG amLODIPine amLODIPine No amLODIPine Besylate 10 Besylate 10 Besylate MG MG 10 MG Metoprolol Metoprolol No Metoprolol Tartrate 50 Tartrate 50 Tartrate MG MG 50 MG LORazepam LORazepam No LORazepam 0.5 MG 0.5 MG 0.5 MG Combigan Combigan No 1{drop_ BID Combigan 0.2-0.5 % 0.2-0.5 % into_af 0.2-0.5 % fected_ eye} Rosuvastati Rosuvastati No 1{table Rosuvastat n Calcium n Calcium t} in Calcium 20 MG 20 MG 20 MG Azopt 1 % Azopt 1 % No 1{drop_ TID Azopt 1 % into_af fected_ eye} metFORMIN metFORMIN No BID metFORMIN HCl 1000 MG HCl 1000 MG HCl 1000 MG Aspirin 81 Aspirin 81 No 1{table QD Aspirin 81 81 MG 81 MG t} 81 MG metFORMIN metFORMIN No metFORMIN HCl 1000 MG HCl 1000 MG HCl 1000 MG amLODIPine amLODIPine No amLODIPine Besylate 10 Besylate 10 Besylate MG MG 10 MG Rosuvastati Rosuvastati No Rosuvastat n Calcium n Calcium in Calcium 20 MG 20 MG 20 MG Metoprolol Metoprolol No Metoprolol Tartrate 50 Tartrate 50 Tartrate MG MG 50 MG Lumigan Lumigan No 1{drop_ QD Lumigan 0.01 % 0.01 % into_af 0.01 % fected_ eye_in_ the_eve tavo} Azopt 1 % Azopt 1 % No 1{drop_ TID Azopt 1 % into_af fected_ eye} Gabapentin Gabapentin No Gabapentin 300 MG 300 MG 300 MG traMADol traMADol No 1{table QID traMADol HCl 50 MG HCl 50 MG t_as_ne HCl 50 MG eded} Combigan Combigan No 1{drop_ BID Combigan 0.2-0.5 % 0.2-0.5 % into_af 0.2-0.5 % fected_ eye} Aspirin 81 Aspirin 81 No 1{table QD Aspirin 81 81 MG 81 MG t} 81 MG LORazepam LORazepam No LORazepam 0.5 MG 0.5 MG 0.5 MG metFORMIN metFORMIN No metFORMIN HCl 1000 MG HCl 1000 MG HCl 1000 MG metFORMIN metFORMIN No BID metFORMIN HCl 1000 MG HCl 1000 MG HCl 1000 MG Rosuvastati Rosuvastati No 1{table Rosuvastat n Calcium n Calcium t} in Calcium 20 MG 20 MG 20 MG Valsartan Valsartan No Valsartan 320 MG 320 MG 320 MG Rosuvastati Rosuvastati No 1{table Rosuvastat n Calcium n Calcium t} in Calcium 20 MG 20 MG 20 MG amLODIPine amLODIPine No amLODIPine Besylate 10 Besylate 10 Besylate MG MG 10 MG Rosuvastati Rosuvastati No Rosuvastat n Calcium n Calcium in Calcium 20 MG 20 MG 20 MG Metoprolol Metoprolol No Metoprolol Tartrate 50 Tartrate 50 Tartrate MG MG 50 MG Lumigan Lumigan No 1{drop_ QD Lumigan 0.01 % 0.01 % into_af 0.01 % fected_ eye_in_ the_eve tavo} Azopt 1 % Azopt 1 % No 1{drop_ TID Azopt 1 % into_af fected_ eye} Gabapentin Gabapentin No Gabapentin 300 MG 300 MG 300 MG traMADol traMADol No 1{table QID traMADol HCl 50 MG HCl 50 MG t_as_ne HCl 50 MG eded} Combigan Combigan No 1{drop_ BID Combigan 0.2-0.5 % 0.2-0.5 % into_af 0.2-0.5 % fected_ eye} Aspirin 81 Aspirin 81 No 1{table QD Aspirin 81 81 MG 81 MG t} 81 MG LORazepam LORazepam No LORazepam 0.5 MG 0.5 MG 0.5 MG metFORMIN metFORMIN No metFORMIN HCl 1000 MG HCl 1000 MG HCl 1000 MG metFORMIN metFORMIN No BID metFORMIN HCl 1000 MG HCl 1000 MG HCl 1000 MG Rosuvastati Rosuvastati No 1{table Rosuvastat n Calcium n Calcium t} in Calcium 20 MG 20 MG 20 MG Valsartan Valsartan No Valsartan 320 MG 320 MG 320 MG Rosuvastati Rosuvastati No 1{table Rosuvastat n Calcium n Calcium t} in Calcium 20 MG 20 MG 20 MG amLODIPine amLODIPine No amLODIPine Besylate 10 Besylate 10 Besylate MG MG 10 MG Rosuvastati Rosuvastati No Rosuvastat n Calcium n Calcium in Calcium 20 MG 20 MG 20 MG Metoprolol Metoprolol No Metoprolol Tartrate 50 Tartrate 50 Tartrate MG MG 50 MG Lumigan Lumigan No 1{drop_ QD Lumigan 0.01 % 0.01 % into_af 0.01 % fected_ eye_in_ the_eve tavo} Azopt 1 % Azopt 1 % No 1{drop_ TID Azopt 1 % into_af fected_ eye} Gabapentin Gabapentin No Gabapentin 300 MG 300 MG 300 MG traMADol traMADol No 1{table QID traMADol HCl 50 MG HCl 50 MG t_as_ne HCl 50 MG eded} Combigan Combigan No 1{drop_ BID Combigan 0.2-0.5 % 0.2-0.5 % into_af 0.2-0.5 % fected_ eye} Aspirin 81 Aspirin 81 No 1{table QD Aspirin 81 81 MG 81 MG t} 81 MG LORazepam LORazepam No LORazepam 0.5 MG 0.5 MG 0.5 MG metFORMIN metFORMIN No metFORMIN HCl 1000 MG HCl 1000 MG HCl 1000 MG metFORMIN metFORMIN No BID metFORMIN HCl 1000 MG HCl 1000 MG HCl 1000 MG Rosuvastati Rosuvastati No 1{table Rosuvastat n Calcium n Calcium t} in Calcium 20 MG 20 MG 20 MG Valsartan Valsartan No Valsartan 320 MG 320 MG 320 MG Rosuvastati Rosuvastati No 1{table Rosuvastat n Calcium n Calcium t} in Calcium 20 MG 20 MG 20 MG Gabapentin Gabapentin No Gabapentin 300 MG 300 MG 300 MG Valsartan Valsartan No 1{table QD Valsartan 320 MG 320 MG t} 320 MG Azopt 1 % Azopt 1 % No 1{drop_ TID Azopt 1 % into_af fected_ eye} Lumigan Lumigan No 1{drop_ QD Lumigan 0.01 % 0.01 % into_af 0.01 % fected_ eye_in_ the_eve tavo} Rosuvastati Rosuvastati No 1{table Rosuvastat n Calcium n Calcium t} in Calcium 20 MG 20 MG 20 MG amLODIPine amLODIPine No 1{table QD amLODIPine Besylate 10 Besylate 10 t} Besylate MG MG 10 MG Metoprolol Metoprolol No 1{table BID Metoprolol Tartrate 50 Tartrate 50 t} Tartrate MG MG 50 MG Rosuvastati Rosuvastati No Rosuvastat n Calcium n Calcium in Calcium 20 MG 20 MG 20 MG LORazepam LORazepam No LORazepam 0.5 MG 0.5 MG 0.5 MG Rosuvastati Rosuvastati No Rosuvastat n Calcium n Calcium in Calcium 20 MG 20 MG 20 MG Combigan Combigan No 1{drop_ BID Combigan 0.2-0.5 % 0.2-0.5 % into_af 0.2-0.5 % fected_ eye} traMADol traMADol No 1{table QID traMADol HCl 50 MG HCl 50 MG t_as_ne HCl 50 MG eded} amLODIPine amLODIPine No amLODIPine Besylate 10 Besylate 10 Besylate MG MG 10 MG metFORMIN metFORMIN No 1{table metFORMIN HCl 1000 MG HCl 1000 MG t_with_ HCl 1000 a_meal} MG Valsartan Valsartan No Valsartan 320 MG 320 MG 320 MG Aspirin 81 Aspirin 81 No 1{table QD Aspirin 81 81 MG 81 MG t} 81 MG Metoprolol Metoprolol No Metoprolol Tartrate 50 Tartrate 50 Tartrate MG MG 50 MG metFORMIN metFORMIN No metFORMIN HCl 1000 MG HCl 1000 MG HCl 1000 MG Gabapentin Gabapentin No Gabapentin 300 MG 300 MG 300 MG Valsartan Valsartan No 1{table QD Valsartan 320 MG 320 MG t} 320 MG Azopt 1 % Azopt 1 % No 1{drop_ TID Azopt 1 % into_af fected_ eye} Lumigan Lumigan No 1{drop_ QD Lumigan 0.01 % 0.01 % into_af 0.01 % fected_ eye_in_ the_eve tavo} Rosuvastati Rosuvastati No 1{table Rosuvastat n Calcium n Calcium t} in Calcium 20 MG 20 MG 20 MG amLODIPine amLODIPine No 1{table QD amLODIPine Besylate 10 Besylate 10 t} Besylate MG MG 10 MG Metoprolol Metoprolol No 1{table BID Metoprolol Tartrate 50 Tartrate 50 t} Tartrate MG MG 50 MG Rosuvastati Rosuvastati No Rosuvastat n Calcium n Calcium in Calcium 20 MG 20 MG 20 MG LORazepam LORazepam No LORazepam 0.5 MG 0.5 MG 0.5 MG Rosuvastati Rosuvastati No Rosuvastat n Calcium n Calcium in Calcium 20 MG 20 MG 20 MG Combigan Combigan No 1{drop_ BID Combigan 0.2-0.5 % 0.2-0.5 % into_af 0.2-0.5 % fected_ eye} traMADol traMADol No 1{table QID traMADol HCl 50 MG HCl 50 MG t_as_ne HCl 50 MG eded} amLODIPine amLODIPine No amLODIPine Besylate 10 Besylate 10 Besylate MG MG 10 MG metFORMIN metFORMIN No 1{table metFORMIN HCl 1000 MG HCl 1000 MG t_with_ HCl 1000 a_meal} MG Valsartan Valsartan No Valsartan 320 MG 320 MG 320 MG Aspirin 81 Aspirin 81 No 1{table QD Aspirin 81 81 MG 81 MG t} 81 MG Metoprolol Metoprolol No Metoprolol Tartrate 50 Tartrate 50 Tartrate MG MG 50 MG metFORMIN metFORMIN No metFORMIN HCl 1000 MG HCl 1000 MG HCl 1000 MG Valsartan Valsartan No 1{table QD Valsartan 320 MG 320 MG t} 320 MG Valsartan Valsartan No Valsartan 320 MG 320 MG 320 MG Rosuvastati Rosuvastati No Rosuvastat n Calcium n Calcium in Calcium 20 MG 20 MG 20 MG LORazepam LORazepam No LORazepam 0.5 MG 0.5 MG 0.5 MG Rosuvastati Rosuvastati No 1{table Rosuvastat n Calcium n Calcium t} in Calcium 20 MG 20 MG 20 MG metFORMIN metFORMIN No metFORMIN HCl 1000 MG HCl 1000 MG HCl 1000 MG Ondansetron Ondansetron No 1{table Ondansetro 4 MG 4 MG t_on_ n 4 MG e_tongu e_and_a llow_to _dissol ve} amLODIPine amLODIPine No 1{table QD amLODIPine Besylate 10 Besylate 10 t} Besylate MG MG 10 MG metFORMIN metFORMIN No 1{table metFORMIN HCl 1000 MG HCl 1000 MG t_with_ HCl 1000 a_meal} MG Metoprolol Metoprolol No 1{table BID Metoprolol Tartrate 50 Tartrate 50 t} Tartrate MG MG 50 MG Aspirin 81 Aspirin 81 No 1{table QD Aspirin 81 81 MG 81 MG t} 81 MG metFORMIN metFORMIN No 1{table metFORMIN HCl 1000 MG HCl 1000 MG t_with_ HCl 1000 a_meal} MG amLODIPine amLODIPine No 1{table QD amLODIPine Besylate 10 Besylate 10 t} Besylate MG MG 10 MG metFORMIN metFORMIN No metFORMIN HCl 1000 MG HCl 1000 MG HCl 1000 MG Combigan Combigan No 1{drop_ BID Combigan 0.2-0.5 % 0.2-0.5 % into_af 0.2-0.5 % fected_ eye} Lumigan Lumigan No 1{drop_ QD Lumigan 0.01 % 0.01 % into_af 0.01 % fected_ eye_in_ the_eve tavo} Gabapentin Gabapentin No Gabapentin 300 MG 300 MG 300 MG Metoprolol Metoprolol No 1{table BID Metoprolol Tartrate 50 Tartrate 50 t} Tartrate MG MG 50 MG amLODIPine amLODIPine No 1{table QD amLODIPine Besylate 10 Besylate 10 t} Besylate MG MG 10 MG Metoprolol Metoprolol No 1{table BID Metoprolol Tartrate 50 Tartrate 50 t} Tartrate MG MG 50 MG Azopt 1 % Azopt 1 % No 1{drop_ TID Azopt 1 % into_af fected_ eye} Aspirin 81 Aspirin 81 No 1{table QD Aspirin 81 81 MG 81 MG t} 81 MG traMADol traMADol No 1{table QID traMADol HCl 50 MG HCl 50 MG t_as_ne HCl 50 MG eded} LORazepam LORazepam No LORazepam 0.5 MG 0.5 MG 0.5 MG Rosuvastati Rosuvastati No 1{table Rosuvastat n Calcium n Calcium t} in Calcium 20 MG 20 MG 20 MG Rosuvastati Rosuvastati No 1{table Rosuvastat n Calcium n Calcium t} in Calcium 20 MG 20 MG 20 MG Valsartan Valsartan No 1{table QD Valsartan 320 MG 320 MG t} 320 MG metFORMIN metFORMIN No 1{table HCl 1000 MG HCl 1000 MG t_with_ a_meal} amLODIPine amLODIPine No 1{table QD Besylate 10 Besylate 10 t} MG MG metFORMIN metFORMIN No HCl 1000 MG HCl 1000 MG Combigan Combigan No 1{drop_ BID 0.2-0.5 % 0.2-0.5 % into_af fected_ eye} Lumigan Lumigan No 1{drop_ QD 0.01 % 0.01 % into_af fected_ eye_in_ the_jonn vo} Gabapentin Gabapentin No 300 MG 300 MG Metoprolol Metoprolol No 1{table BID Tartrate 50 Tartrate 50 t} MG MG amLODIPine amLODIPine No 1{table QD Besylate 10 Besylate 10 t} MG MG Metoprolol Metoprolol No 1{table BID Tartrate 50 Tartrate 50 t} MG MG Azopt 1 % Azopt 1 % No 1{drop_ TID into_af fected_ eye} Aspirin 81 Aspirin 81 No 1{table QD 81 MG 81 MG t} Immunizations Ordered Immunization Filled Immunization Date Status Commen ts Source Name Name Flucelvax - Flucelvax - 2019-10-15 [facility] - [facility] Flucelvax - Flucelvax - 2019-10-15 Completed [facility] multidose vial 10:53:00 - [facility] Flucelvax - Flucelvax - 2019-10-15 Completed [facility] multidose vial 10:53:00 - [facility] Flucelvax - Flucelvax - 2019-10-15 Completed [facility]ial multidose vial 10:53:00 - [facility] Flucelvax - Flucelvax - 2019-10-15 Completed [facility]ial multidose vial 10:53:00 - [facility] Flucelvax - Flucelvax - 2019-10-15 Completed [facility]ial multidose vial 10:53:00 - [facility] Flucelvax - Flucelvax - 2019-10-15 Completed [facility]ial multidose vial 10:53:00 - [facility] Flucelvax - Flucelvax - 2019-10-15 Completed [facility]ial multidose vial 10:53:00 - [facility] Flucelvax - Flucelvax - 2019-10-15 Completed [facility]ial multidose vial 10:53:00 - [facility] Flucelvax - Flucelvax - 2019-10-15 Completed [facility]ose [facility]ial multidose vial 10:53:00 - [facility] Flucelvax - Flucelvax - 2019-10-15 Completed [facility] multidose [facility]ial multidose vial 10:53:00 - [facility] Flucelvax - Flucelvax - 2019-10-15 Completed [facility]ial multidose vial 10:53:00 - [facility] Afluria Afluria 2018-11-24 Completed [facility] 15:16:[facility] - [facility] Afluria Afluria 2018-11-24 Completed [facility] 15:16:[facility] - [facility] Afluria Afluria 2018-11-24 Completed [facility] 15:16:[facility] - [facility] Afluria Afluria 2018-11-24 Completed [facility] 15:16:[facility] - [facility] Afluria Afluria 2018-11-24 Completed [facility] 15:16:00 - [facility] Afluria Afluria 2018-11-24 Completed [facility] 15:16:00 - [facility] Afluria Afluria 2018-11-24 Completed [facility] 15:16:00 - [facility] Afluria Afluria 2018-11-24 Completed [facility] 15:16:00 - [facility] Afluria Afluria 2018-11-24 Completed [facility] 15:16:00 - [facility] Afluria Afluria 2018-11-24 Completed [facility] 15:16:00 - [facility] Afluria Afluria 2018-11-24 Completed [facility] 15:16:00 - [facility] Afluria Afluria 2018-11-24 Completed [facility] 15:16:00 - [facility] Vital Signs Vital Name Observation Time Observation Value Comments Source height 2022-09-07 08:30:00 74 [in_i] [facility] weight 2022-09-07 08:30:00 284.2 [lb_av] [facility] temperature 2022-09-07 08:30:00 97.7 [degF] [facility] bmi 2022-09-07 08:30:00 36.49 kg/m2 [facility] oximetry 2022-09-07 08:30:00 99 % [facility] respiratory rate 2022-09-07 08:30:00 18 /min [facility] blood pressure 2022-09-07 08:30:00 128 mm[Hg] Common [facility] - systolic [facility] blood pressure 2022-09-07 08:30:00 66 mm[Hg] Common [facility] - diastolic [facility] height 2022-06-07 09:20:00 74 [in_i] [facility] weight 2022-06-07 09:20:00 302 [lb_av] [facility] temperature 2022-06-07 09:20:00 97.6 [degF] [facility] 2022-06-07 09:20:00 38.77 kg/m2 [facility] oximetry 2022-06-07 09:20:00 96 % [facility] respiratory rate 2022-06-07 09:20:00 16 /min [facility] blood pressure 2022-06-07 09:20:00 138 mm[Hg] Common [facility] - systolic [facility] blood pressure 2022-06-07 09:20:00 69 mm[Hg] Common [facility] - diastolic [facility] height 2022-03-08 09:00:00 74 [in_i] [facility] weight 2022-03-08 09:00:00 303.5 [lb_av] [facility] temperature 2022-03-08 09:00:00 97.4 [degF] [facility] bmi 2022-03-08 09:00:00 38.96 kg/m2 [facility] oximetry 2022-03-08 09:00:00 97 % Common [facility] respiratory rate 2022-03-08 09:00:00 17 /min [facility] on [facility] blood pressure 2022-03-08 09:00:00 132 mm[Hg] Common [facility] - systolic [facility] blood pressure 2022-03-08 09:00:00 76 mm[Hg] Common [facility] - diastolic [facility] height 2022-03-08 09:00:00 74 [in_i] [facility] weight 2022-03-08 09:00:00 303.5 [lb_av] [facility] temperature 2022-03-08 09:00:00 97.4 [degF] [facility] bmi 2022-03-08 09:00:00 38.96 kg/m2 [facility] oximetry 2022-03-08 09:00:00 97 % [facility] respiratory rate 2022-03-08 09:00:00 17 /min [facility] blood pressure 2022-03-08 09:00:00 132 mm[Hg] Common [facility] systolic [facility] blood pressure 2022-03-08 09:00:00 76 mm[Hg] Common [facility] diastolic [facility] height 2021-12-03 15:10:00 74 [in_i] [facility] weight 2021-12-03 15:10:00 294.8 [lb_av] [facility] temperature 2021-12-03 15:10:00 97.8 [degF] Common [facility] bmi 2021-12-03 15:10:00 37.85 kg/m2 [facility] oximetry 2021-12-03 15:10:00 98 % [facility] respiratory rate 2021-12-03 15:10:00 18 /min [facility] blood pressure 2021-12-03 15:10:00 136 mm[Hg] [facility] blood pressure 2021-12-03 15:10:00 75 mm[Hg] [facility] - diastolic [facility] Systolic blood 2020-05-05 13:05:00 168 mm[Hg] [facility] pressure [facility] Diastolic blood 2020-05-05 13:05:00 86 mm[Hg] [facility] of pressure [facility] Heart rate 2020-05-05 13:05:00 60 /min [facility] Respiratory rate 2020-05-05 13:05:00 20 /min [facility] Oxygen saturation in 2020-05-05 13:05:00 100 /min [facility] Arterial blood by [facility] oxim[facility] Body temperature 2020-05-05 12:54:00 35.72 Nurys [facility] Body height 2020-05-02 14:30:00 188 cm [facility] Body weight 2020-05-02 14:30:00 136.079 kg [facility] BMI 2020-05-02 14:30:00 38.52 kg/m2 [facility] Systolic blood 2020-05-05 13:05:00 168 mm[Hg] [facility] pressure [facility] Diastolic blood 2020-05-05 13:05:00 86 mm[Hg] [facility] Heart rate 2020-05-05 13:05:00 60 /min [facility] Respiratory rate 2020-05-05 13:05:00 20 /min [facility] Oxygen saturation in 2020-05-05 13:05:00 100 /min [facility] [place] [facility] Pulse oximetry [facility] Body temperature 2020-05-05 12:54:00 35.72 Nurys [facility] Body height 2020-05-02 14:30:00 188 cm [facility] Body weight 2020-05-02 14:30:00 136.079 kg [facility] BMI 2020-05-02 14:30:00 38.52 kg/m2 [facility] Systolic blood 2020-04-21 13:05:00 143 mm[Hg] [facility] Diastolic blood 2020-04-21 13:05:00 68 mm[Hg] [facility] Heart rate 2020-04-21 13:05:00 58 /min [facility] Respiratory rate 2020-04-21 13:05:00 15 /min [facility] Oxygen saturation in 2020-04-21 13:05:00 97 /min [facility] Arterial blood by [facility] lawrence Pulse oximetry Branch Body temperature 2020-04-21 12:59:00 36.39 Nurys [facility] Body height 2020-04-15 18:30:00 188 cm [facility] Body weight 2020-04-15 18:30:00 129.275 kg [facility] BMI 2020-04-15 18:30:00 36.59 kg/m2 [facility] Systolic blood 2020-04-21 13:05:00 143 mm[Hg] [facility] Diastolic blood 2020-04-21 13:05:00 68 mm[Hg] [facility] Heart rate 2020-04-21 13:05:00 58 /min [facility] Respiratory rate 2020-04-21 13:05:00 15 /min [facility] Oxygen saturation in 2020-04-21 13:05:00 97 /min [facility] Arterial blood by [facility] Pulse oximetry Branch Body temperature 2020-04-21 12:59:00 36.39 Nurys [facility] Body height 2020-04-15 18:30:00 188 cm [facility] Body weight 2020-04-15 18:30:00 129.275 kg [facility] BMI 2020-04-15 18:30:00 36.59 kg/m2 [facility] Systolic blood 2019-12-31 19:37:00 135 mm[Hg] [facility] Diastolic blood 2019-12-31 19:37:00 74 mm[Hg] [facility] Heart rate 2019-12-31 19:37:00 68 /min [facility] Respiratory rate 2019-12-31 19:37:00 18 /min [facility] Body height 2019-12-31 19:37:00 188 cm Universi ty [facility] Body weight 2019-12-31 19:37:00 130.636 kg Universi ty [facility] BMI 2019-12-31 19:37:00 36.98 kg/m2 Universi ty [facility] Systolic blood 2019-12-31 19:37:00 135 mm[Hg] Univer sity of pressure [facility] Diastolic blood 2019-12-31 19:37:00 74 mm[Hg] Unive rsity of pressure [facility] Heart rate 2019-12-31 19:37:00 68 /min Universi ty [facility] Respiratory rate 2019-12-31 19:37:00 18 /min [facility] Body height 2019-12-31 19:37:00 188 cm Universi ty [facility] Body weight 2019-12-31 19:37:00 130.636 kg Universi ty [facility] BMI 2019-12-31 19:37:00 36.98 [facility]m2 [facility] Systolic (mm Hg) 2013-05-16 12:53:41 [facility] [facility] [place] Diastolic (mm Hg) 2013-05-16 12:53:41 Mem [facility]rial [place] Heart Rate 2013-05-16 12:53:41 [facility] Systolic (mm Hg) 2013-03-14 13:28:09 Waldo rial [place] Diastolic (mm Hg) 2013-03-14 13:28:09 Mem orial [place] Heart Rate 2013-03-14 13:28:09 [facility] [place] Systolic (mm Hg) 2013-01-31 13:26:05 Waldo [facility] [place] Diastolic (mm Hg) 2013-01-31 13:26:05 Mem orial [place] Heart Rate 2013-01-31 13:26:05 [facility] [place] Height 2013-01-17 14:12:00 [facility] Weight 2013-01-17 14:12:00 [facility] [place] Systolic (mm Hg) 2013-01-17 14:12:00 Waldo rial [place] Diastolic (mm Hg) 2013-01-17 14:12:00 Mem orial [place] Heart Rate 2013-01-17 14:12:00 [facility] Procedures Procedure Date / Time Performing Clinician Source Performed [place] TIME OR 2020-04-21 12:42:00 Aydin Levi [facility] (NON-REPORTABLE) Medical Branch POCT GLUCOSE(AGE >30DAYS) 2020-04-21 12:12:00 Mariah Morales [facility] [place] [facility] DAY SURGERY - ADC 2020-04-21 05:01:00 Doctor Unassigned, [facility] ity [facility] [place] [facility] ASSIGNMENT OF BENEFITS 2020-04-18 13:21:35 Doctor Unassigned, [facility] [place] [facility] CONSENT/REFUSAL FOR 2020-03-26 13:52:17 Doctor Unassigned, [facility] [place] [facility] [place] [facility] CONSENT/REFUSAL FOR 2020-03-26 13:51:56 Doctor Unassigned, Unive rsity [facility] DIAGNOSIS AND TREATMENT [facility] CONSENT/REFUSAL FOR 2020-03-26 13:51:35 Doctor [facility]igned, [facility] DIAGNOSIS AND TREATMENT [place] [facility] ASSIGNMENT OF BENEFITS 2020-03-26 13:51:13 Doctor Unassigned, [facility] [place] [facility] ASSIGNMENT OF BENEFITS 2020-03-26 13:50:52 Doctor Unassigned, [facility] [place] [facility] ASSIGNMENT OF BENEFITS 2020-03-26 13:50:32 [facility]igned, [facility] [place] [facility] CBC WITH DIFFERENTIAL 2020-01-23 16:39:00 Aydin Levi Uni versity [facility] Medical Branch C-REACTIVE PROTEIN 2019-12-31 20:39:00 Corona Calles [facility] ity [facility] Medical Branch SEDIMENTATION RATE 2019-12-31 20:39:00 Corona Calles [facility] ity [facility] Medical Branch CBC WITH DIFFERENTIAL 2019-12-31 20:39:00 Corona [facility]es [facility] NOTICE OF PRIVACY 2019-12-31 20:27:31 Doctor Unassvaibhav, [facility] ity [facility] PRACTICES [place] [facility] CONSENT/REFUSAL FOR 2019-12-31 20:27:03 Doctor Ramin, [facility] DIAGNOSIS AND TREATMENT [place] [facility] ASSIGNMENT OF BENEFITS 2019-12-31 20:26:39 Doctor Unassigned, [facility] [place] [facility] XR HIP 1 VW RIGHT 2019-12-31 19:55:13 Corona Calles [facility] [place] ASSIGNMENT OF BENEFITS 2019-12-31 19:32:57 Doctor Unassigned, [facility] Name Medical Branch INSURANCE CORRESPONDENCE 2019-12-14 06:01:00 Doctor Unassigned, [facility] Name Medical Branch Encounters Start End Encounter Admission Attending Care Care Encounter Source Date/Time Date/Time Type Type Clinicians Facility Department ID 2022-09-03 Outpatient Watters, STLMLC STLMLC [id number] Common 08:51:01 Yao [facility] 2022-06-07 Outpatient Watters, STLMLC STLMLC [id number] Common 09:32:02 Yao [facility] 2022-05-31 Outpatient Watters, STLMLC STLMLC [id number] Common 08:06:01 Yao [facility] 2021-12-08 Outpatient Watters, STLMLC STLMLC [id number] Common 14:49:00 Yao [facility] 2021-12-02 Outpatient Watters, STLMLC STLMLC [id number] Common 14:32:42 Yao [facility] 2021-12-02 Outpatient Watters, STLMLC STLMLC [id number] Common 13:58:29 Yao [facility] 2021-12-02 Outpatient Watters, STLMLC STLMLC [id number] Common 13:35:21 Yao 53576 [facility] 2021-12-02 Outpatient Watters, STLMLC STLMLC [id number] Common 13:06:08 Yao 92469 [facility] 2021-12-02 Outpatient Watters, STLMLC STLMLC [id number] Common 12:57:57 Yao 56016 [facility] 2021-12-02 Outpatient Watters, STLMLC STLMLC [id number] Common 12:33:52 Yao 12409 [facility] 2021-12-02 Outpatient Watters, STLMLC STLMLC [id number] Common 12:08:33 Yao 47855 [facility] 2021-12-02 Outpatient Watters, STLMLC STLMLC [id number] Common 11:59:37 Yao 88147 [facility] 2021-12-02 Outpatient Watters, STLMLC STLMLC [id number] Common 11:54:36 Yao 19385 [facility] 2021-12-02 Outpatient Watters, STLMLC STLMLC [id number] Common 11:22:57 Yao 27588 [facility] 2021-09-03 [id number] Univers 21:39:05 [facility] 2021-09-03 [facility] [id number] Univers 14:08:32 [facility] 2022-09-07 2022-09-07 OFFICE STLMLC STLC [id number] Co mmon 00:00:00 00:00:00 VISIT [facility] PT - CHI LEVEL [address] [place] [address] 2022 2022 (TEL) STLMLC STLMLC [id number] Co mmon 00:00:00 00:00:00 [facility] 2022-06-07 2022-06-07 OFFICE STLMLC STLMLC [id number] Co mmon 00:00:00 00:00:00 VISIT [facility] PT - CHI LEVEL [address] [place] [address] 2022-06-01 2022-06-01 [id number] 03:42:00 03:42:00 [facility] 2022-05-21 2022-05-21 Outpatient DM PRASAD [id number] [facility] 03:12:00 03:12:00 0715 [facility] 2022-03-08 2022-03-08 (TEL) STLMLC STLMLC [id number] Co mmon 00:00:00 00:00:00 [facility] 2022-03-08 2022-03-08 SUB ANNUAL STLMLC STLMLC [id number] Common 00:00:00 00:00:00 MCR [facility] VISIT [facility] 2022-03-08 2022-03-08 OFFICE STLMLC STLMLC [id number] Co mmon 00:00:00 00:00:00 VISIT [facility] ESTAB PT - CHI LEVEL 4 [facility] 2022-02-24 2022-02-24 (TEL) STLMLC STLMLC [id number] Co mmon 00:00:00 00:00:00 [facility] 2021-12-10 2021-12-10 (TEL) STLMLC STLMLC [id number] Co mmon 00:00:00 00:00:00 [facility] 2021-12-03 2021-12-03 OFFICE STLMLC STLMLC [id number] Co mmon 00:00:00 00:00:00 VISIT [facility] PT - CHI LEVEL 4 [facility] 2021-11-24 2021-11-24 (TEL) STLMLC STLMLC [id number] Co mmon 00:00:00 00:00:00 [facility] 2021-11-12 2021-11-12 (TEL) STLMLC STLMLC [id number] Co mmon 00:00:00 00:00:00 [facility] 2021-11-02 2021-11-02 (TEL) STLMLC STLMLC [id number] Co mmon 00:00:00 00:00:00 [facility] 2021-09-22 2021-09-22 Outpatient DMG DMG [id number] [facility] 11:00:00 11:00:00 1116 [facility] 2021-06-12 2021-06-12 Outpatient STLMLC STLMLC [id number] Common 00:00:00 00:00:00 [facility] 2021-03-05 2021-03-05 Outpatient STLMLC STLMLC [id number] Common 00:00:00 00:00:00 [facility] 2021-01-07 2021-01-07 Outpatient STLMLC STLMLC [id number] Common 00:00:00 00:00:00 [facility] 2021-01-05 2021-01-05 Outpatient STLMLC STLMLC [id number] Common 00:00:00 00:00:00 [facility] 2021-01-05 2021-01-05 Outpatient STLMLC STLMLC [id number] Common 00:00:00 00:00:00 [facility] 2020-12-12 2020-12-12 Outpatient STLMLC STLMLC [id number] Common 00:00:00 00:00:00 [facility] 2020-10-06 2020-10-06 Outpatient STLMLC STLMLC [id number] Common 00:00:00 00:00:00 [facility] 2020-09-01 2020-09-01 Outpatient STLMLC STLMLC [id number] Common 00:00:00 00:00:00 [facility] 2020-08-18 2020-08-18 Outpatient STLMLC STLMLC [id number] Common 00:00:00 00:00:00 [facility] 2020-07-07 2020-07-07 [facility] [id number] Common 08:10:00 08:10:[address] [facility] 2020-05-05 2020-05-05 [facility] 1.2.840.114 [id number] [facility] 07:02:00 08:24:00 Encounter Aydin See 350.1.13.10 [id number] [place] [address] Branch 2020-05-05 2020-05-05 [facility] 1.2.840.114 [id number] 07:02:00 08:24:00 Encounter Aydin See 350.1.13.10 [place] 4.2.7.2.686 Surgical [id number] [place] [address] 2020-05-02 2020-05-02 Laboratory Only, Adc Test [facility] 1.2.840. 114 [id number] [facility] 12:45:01 13:00:01 Only Aydin [place] 350.1.13.1 0 [place] [id number] [address] 2020-05-02 2020-05-02 Laboratory Only, [facility] 1.2.840.114 [id number] 12:45:01 13:00:01 Only Test [place] 350.1.13.10 [place] 4.2.7.2.686 [place] [id number] 353 2020-05-02 2020-05-02 [facility] [id number] Univers 13:00:00 13:00:00 AYDIN ity [facility] 2020-04-21 2020-04-21 [facility] 1.2.840.114 [id number] 06:14:00 08:10:00 Encounter Aydin [place] 350.1.13.10 [place] 4.2.7.2.686 Surgical [id number] [place] [address] 2020-04-21 2020-04-21 [facility] 1.2.840.114 [id number] Univers 06:14:00 08:10:00 Encounter Aydin [place] 350.1.13.10 [place] [id number] Med ica[address] 2020-04-21 2020-04-21 Outpatient R [facility] [place] [id number] Univers 06:14:00 08:10:00 AYDIN ity [facility] 2020-04-21 2020-04-21 Orders Doctor JAKOB 1.2.840.114 [id number] 00:00:00 00:00:00 Only Unassigned, SACHI 350.1.13.10 [facility] 4.2.7.2.686 [id number] [id number] 2020-04-21 2020-04-21 Orders Doctor JAKOB 1.2.840.114 [id number] Univers 00:00:00 00:00:00 Only Unassigned, SACHI 350.1.13.10 [facility] [place] [facility] 4.2.7.2.686 Seth as [id number] [address] 2020-04-18 2020-04-18 Laboratory Only, [facility] 1.2.840.114 [id number] 08:25:00 08:40:00 Only Test [place] 350.1.13.10 [place] 4.2.7.2.686 [place] [id number] 2020-04-18 2020-04-18 Laboratory Only, [facility] Test [facility] 1.2.840. 114 [id number] Univers 08:25:00 08:40:00 Only Justice Levit S [place] 350.1.13.1 0 [place] [id number] [address] 2020-04-18 2020-04-18 Outpatient R AMITA [facility] [id number] Univers 08:30:00 08:30:00 AYDIN ity [facility] 2020-04-18 2020-04-18 Orders Doctor JAKOB 1.2.840.114 [id number] 00:00:00 00:00:00 Only Unassigned, SACHI 350.1.13.10 [facility] 4.2.7.2.686 [id number] [id number] 2020-04-18 2020-04-18 Orders Doctor JAKOB 1.2.840.114 [id number] Univers 00:00:00 00:00:00 Only Unassigned, SACHI 350.1.13.10 [facility] [place] [facility] 4.2.7.2.686 Seth as [id number] [address] 2020-04-07 2020-04-07 Outpatient Nate LEVI [facility] EDL [id number] Univers 06:39:57 08:10:00 AYDIN ity [facility] 2020-04-04 2020-04-04 Outpatient Nate LEVI [facility] [id number] Univers 11:45:00 11:45:00 AYDIN ity [facility] 2020-04-04 2020-04-04 Laboratory Only, [facility] 1.2.840.114 [id number] 11:26:01 11:41:01 Only Test [place] 350.1.13.10 [place] 4.2.7.2.686 Professio [id number] [address] 2020-04-04 2020-04-04 Laboratory Only, Adc Test [facility] 1.2.840. 114 [id number] Univers 11:26:01 11:41:01 Only Aydin Levi 350.1.13.1 0 [place] [id number] [place] [address] 2020-03-27 2020-03-27 Outpatient Jillian Walsht [id number] Common 15:00:00 15:00:00 t MSI [facility] [employer] [facility] 2020-01-23 2020-01-23 Tapper Shank Juma [facility] 1.2.840.114 [id number] 11:27:59 11:42:59 Visit Lab Main Mayi 350.1.13.10 [place] 4.2.7.2.686 Professio [id number] [address] 2020-01-23 2020-01-23 Tapper Shank Sebastian Dennison Lab Main [place] 1.2.8 40.114 [id number] Univers 11:27:59 11:42:59 Visit Aydin Levi 350.1.13.1 0 [place] [id number] Ok dic[address] 2020-01-23 2020-01-23 Outpatient Nate TAPIAAMITA, [facility] [id number] Univers 11:30:00 11:30:00 AYDIN yolay [facility] 2020-01-10 2020-01-10 [facility] [id number] Univers 10:15:00 10:15:00 [facility] 2019-12-31 2019-12-31 Outpatient [facility] [id number] Univers 13:55:12 23:59:00 [facility] 2019-12-31 2019-12-31 [facility] 1.2.840.114 [id number] Univers 13:55:00 23:59:00 [facility] 350.1.13.10 [facility] Surgical 4.2.7.2.686 Seth as Specialti [phone] Me dical es 8[address] [facility] 2019-12-31 2019-12-31 Tapper Shank Sebastian Dennison Lab Main [facility] 1.2.8 40.114 [id number] Univers 14:27:18 14:42:18 Visit Corona Calles [place] 350.1.13.10 it[place] [id number] Me dical nal [address] [facility] 2019-12-31 2019-12-31 Office Stevan [facility] 1.2.283.538 [id number] 13:35:03 14:06:53 Visit Corona Castro [facility] 350.1.13.10 Surgical 4.2.7.2.686 Specialti [phone] es [address] [place] 2019-12-31 2019-12-31 Office Stevan [facility] 1.2.838.450 [id number] [facility] 13:35:03 14:06:53 Visit Corona Castro [facility] 350.1.13.10 it y of Surgical 4.2.7.2.686 Seth as Specialti [phone] Ok dical es 198 [facility] 2019-12-31 2019-12-31 Orders Doctor JAKOB 1.2.840.114 [id number] Univers 00:00:00 00:00:00 Only Unassigned, SACHI 350.1.13.10 [facility] [place] [facility] 4.2.7.2.686 Seth as [id number] [address] 2019-12-14 2019-12-14 Orders Doctor JAKOB 1.2.840.114 [id number] Univers 00:00:00 00:00:00 Only Unassigned, SACHI 350.1.13.10 [facility] [place] [facility] 4.2.7.2.686 Seth as [id number] [address] 2013-08-17 2013-08-17 Lab Report Sherrie Beckham 1697 [id number] Memoria 00:00:00 00:00:00 r Bone & [id number] l [facility] 2013-08-15 2013-08-15 Lab Report Sherire Beckham 1696 [id number] Memoria 00:00:00 00:00:00 r Bone & [id number] l [facility] 2013-05-16 2013-05-16 Lab Report Sherrie Valle9 [id number] Memoria 00:00:00 00:00:00 r Bone & [id number] l [facility] 2013-04-25 2013-04-25 Lab Report Kaseyo Chapincito 1687 [id number] Memoria 00:00:00 00:00:00 r Bone & 812005 l [facility] 2013-03-23 2013-03-23 Lab Report nullMichaelo Chapincito 1684 [id number] Memoria 00:00:00 00:00:00 r Bone & [id number] l [facility] 2013-03-14 2013-03-14 Lab Report Kaseyo Chapincito Valle3 [id number] Memoria 00:00:00 00:00:00 r Bone & 334243 l [facility] 2013-01-31 2013-01-31 Office nullMichaelo Aundrea Ruiz 03522 32140 Memoria 00:00:00 00:00:00 Visit r Office [id number] [facility] 2013-01-31 2013-01-31 Lab Report nullShai Beckham 1680 [id number] Memoria 00:00:00 00:00:00 r Bone & 160522 l [facility] 2013-01-19 2013-01-19 Lab Report nullMichaelo Chapincito 1678 [id number] Memoria 00:00:00 00:00:00 r Bone & 588167 l [facility] 2013-01-17 2013-01-17 Lab Report Kaseyo Chapincito 1678 [id number] Memoria 00:00:00 00:00:00 r Bone & [id number] l [facility] Results Test Description Test Time Test Comments Results Result Sourc e Comments FL TIME OR 2020-04-21 These images do Universit y of (NON-REPORTABLE) 13:10:04 not require a [facility] Radiology Branch diagnostic report. POCT Glucose 2020-04-21 12:12:00 Test Item Value Reference Range Interpretation Comme nts POCT Glu (age>30days) (test code = 3342) 116 mg/dL 70-110 A Lab Interpretation (test code = 33800-0) [facility]normal [facility] [id number] 16:42:00 Test Item Value Reference Range Interpretation Comments WBC (test code = See_Comment [Automated 6690-2) message] The sy stem which generated this result transmitted reference range : 4.20 - 10.70 10*3/?L. The reference range was not used to interpret this result as normal/abnormal . RBC (test code = See_Comment [Automated 789-8) message] The sy stem which generated this result transmitted reference range : 4.26 - 5.52 10*6/?L. The reference range was not used to interpret this result as normal/abnormal . HGB (test code = 13.3 g/dL 12.2-16.4 718-7) HCT (test code = 42.0 % 38.4-49.3 4544-3) MCV (test code = 87.0 fL 81.7-95.6 787-2) MCH (test code = 27.5 pg 26.1-32.7 785-6) MCHC (test code = 31.7 g/dL 31.2-35 786-4) RDW-SD (test code = 51.7 fL 38.5-51.6 H 08240-0) RDW-CV (test code = 16.3 % 12.1-15.4 H 788-0) PLT (test code = See_Comment [Automated 777-3) message] The sy stem which generated this result transmitted reference range : 150 - 328 10*3/ ?L. The reference r ashwini was not used to interpret this result as normal/abnormal . MPV (test code = 11.3 fL 9.8-13 29131-6) NRBC/100 WBC (test See_Comment [Automat ed code = 0767057504) message] The system which generated this result transmitted reference range : 0.0 - 10.0 /100 WBCs. The refer ence range was not u sed to interpret th is result as normal/abnormal . NRBC x10^3 (test code <0.01 See_Comment [Auto mated = 6354050388) message] The s ystem which generated this result transmitted reference range : 10*3/?L. The reference range was not used to interpret this result as normal/abnormal . GRAN MAT (NEUT) % 65.6 % (test code = 770-8) IMM GRAN % (test code 0.10 % = 7753146317) LYMPH % (test code = 26.2 % 736-9) MONO % (test code = 6.8 % 5905-5) EOS % (test code = 0.9 % 713-8) BASO % (test code = 0.4 % 706-2) GRAN MAT x10^3(ANC) 4.50 10*3/uL 1.99-6.95 (test code = 3500050785) IMM GRAN x10^3 (test <0.03 0-0.06 code = 7245418522) LYMPH x10^3 (test code 1.80 10*3/uL 1.09-3.23 = 731-0) MONO x10^3 (test code 0.47 10*3/uL 0.36-1.02 = 742-7) EOS x10^3 (test code = 0.06 10*3/uL 0.06-0.53 711-2) BASO x10^3 (test code 0.03 10*3/uL 0.01-0.09 = 704-7) Lab Interpretation Abnormal (test code = 42229-0) [facility] [id number] 14:52:00 Test Item Value Reference Range Interpretation Comments CRP (test code = 1925254825) 0.6 mg/dL <0.8 Lab Interpretation (test code = Normal 79006-4) [facility]-REACTIVE [id number] 14:52:00 Test Item Value Reference Range Interpretation Comments CRP (test code = 5301147227) 0.6 mg/dL <0.8 Lab Interpretation (test code = Normal 84983-8) [facility] H[facility] 1 VW [id number] 21:50:08Implant in good position, no signs of loosening or subsidence or otherwise failure prosthesis. Interval between implants is excellent with no evidence of wear. [facility] Center[facility]ED[facility]ATION [id number] 21:23:00 Test Item Value Reference Range Interpretation Comments ESR (test code = See_Comment [Automated message] 4056992466) The system [employer] generated this result transmitted ref erence range: 0 - 10 m m/HR. The reference r ashwini was not used to interpret this result as normal/abnor mal. Lab Interpretation (test Normal code = 03119-3) [facility] Center[facility]ED[facility] [id number] 21:23:00 Test Item Value Reference Range Interpretation Comments ESR (test code = See_Comment [Automated message] 2493051692) The system [employer] h generated this result transmitted ref erence range: 0 - 10 m m/HR. The reference r ashwini was not used to interpret this result as normal/abnor mal. Lab Interpretation (test Normal code = 12098-0) [facility] WITH [id number] 20:44:00 Test Item Value Reference Range Interpretation Comments WBC (test code = See_Comment [Automated 6390-2) message] The sy stem which generated this result transmitted reference range : 4.20 - 10.70 10*3/?L. The reference range was not used to interpret this result as normal/abnormal . RBC (test code = See_Comment [Automated 789-8) message] The sy stem which generated this result transmitted reference range : 4.26 - 5.52 10*6/?L. The reference range was not used to interpret this result as normal/abnormal . HGB (test code = 13.4 g/dL 12.2-16.4 718-7) HCT (test code = 43.6 % 38.4-49.3 4544-3) MCV (test code = 86.9 fL 81.7-95.6 787-2) MCH (test code = 26.7 pg 26.1-32.7 785-6) MCHC (test code = 30.7 g/dL 31.2-35 L 786-4) RDW-SD (test code = 48.0 fL 38.5-51.6 43219-9) RDW-CV (test code = 15.1 % 12.1-15.4 788-0) PLT (test code = See_Comment [Automated 777-3) message] The sy stem which generated this result transmitted reference range : 150 - 328 10*3/ ?L. The reference r ashwini was not used to interpret this result as normal/abnormal . MPV (test code = 11.0 fL 9.8-13 77330-4) NRBC/100 WBC (test See_Comment [Automat ed code = 3020503992) message] The system which generated this result transmitted reference range : 0.0 - 10.0 /100 WBCs. The refer ence range was not u sed to interpret th is result as normal/abnormal . NRBC x10^3 (test code <0.01 See_Comment [Auto mated = [id number]) message] The s ystem which generated this result transmitted reference range : 10*3/?L. The reference range was not used to interpret this result as normal/abnormal . GRAN MAT (NEUT) % 62.2 % (test code = 770-8) IMM GRAN % (test code 0.40 % = 5062063747) LYMPH % (test code = 27.1 % 736-9) MONO % (test code = 8.7 % 5905-5) EOS % (test code = 1.2 % 713-8) BASO % (test code = 0.4 % 706-2) GRAN MAT x10^3(ANC) 5.10 10*3/uL 1.99-6.95 (test code = 4637404681) IMM GRAN x10^3 (test 0.03 10*3/uL 0-0.06 code = 0387926049) LYMPH x10^3 (test code 2.22 10*3/uL 1.09-3.23 = 731-0) MONO x10^3 (test code 0.71 10*3/uL 0.36-1.02 = 742-7) EOS x10^3 (test code = 0.10 10*3/uL 0.06-0.53 711-2) BASO x10^3 (test code 0.03 10*3/uL 0.01-0.09 = 704-7) Lab Interpretation Abnormal (test code = 11481-9) [facility] WITH [id number] 20:44:00 Test Item Value Reference Range Interpretation Comments WBC (test code = See_Comment [Automated 6690-2) message] The sy stem which generated this result transmitted reference range : 4.20 - 10.70 10*3/?L. The reference range was not used to interpret this result as normal/abnormal . RBC (test code = See_Comment [Automated 789-8) message] The sy stem which generated this result transmitted reference range : 4.26 - 5.52 10*6/?L. The reference range was not used to interpret this result as normal/abnormal . HGB (test code = 13.4 g/dL 12.2-16.4 718-7) HCT (test code = 43.6 % 38.4-49.3 4544-3) MCV (test code = 86.9 fL 81.7-95.6 787-2) MCH (test code = 26.7 pg 26.1-32.7 785-6) MCHC (test code = 30.7 g/dL 31.2-35 L 786-4) RDW-SD (test code = 48.0 fL 38.5-51.6 73684-0) RDW-CV (test code = 15.1 % 12.1-15.4 788-0) PLT (test code = See_Comment [Automated 777-3) message] The sy stem which generated this result transmitted reference range : 150 - 328 10*3/ ?L. The reference r ashwini was not used to interpret this result as normal/abnormal . MPV (test code = 11.0 fL 9.8-13 45212-4) NRBC/100 WBC (test See_Comment [Automat ed code = 7810884959) message] The system which generated this result transmitted reference range : 0.0 - 10.0 /100 WBCs. The refer ence range was not u sed to interpret th is result as normal/abnormal . NRBC x10^3 (test code <0.01 See_Comment [Auto mated = 1490228074) message] The s ystem which generated this result transmitted reference range : 10*3/?L. The reference range was not used to interpret this result as normal/abnormal . GRAN MAT (NEUT) % 62.2 % (test code = 770-8) IMM GRAN % (test code 0.40 % = 6030580550) LYMPH % (test code = 27.1 % 736-9) MONO % (test code = 8.7 % 5905-5) EOS % (test code = 1.2 % 713-8) BASO % (test code = 0.4 % 706-2) GRAN MAT x10^3(ANC) 5.10 10*3/uL 1.99-6.95 (test code = 8240907940) IMM GRAN x10^3 (test 0.03 10*3/uL 0-0.06 code = 8705222695) LYMPH x10^3 (test code 2.22 10*3/uL 1.09-3.23 = 731-0) MONO x10^3 (test code 0.71 10*3/uL 0.36-1.02 = 742-7) EOS x10^3 (test code = 0.10 10*3/uL 0.06-0.53 711-2) BASO x10^3 (test code 0.03 10*3/uL 0.01-0.09 = 704-7) Lab Interpretation Abnormal (test code = 34042-1) [facility]
[2022-09-10] MEDS ORDERED: NA CHLORIDE 0.9% 500 ML ONE (14:29)
[2022-09-10] MEDS ORDERED: ONDANSETRON 4 MG/2 ML VIAL ONE (14:29)
[2022-09-10 14:43] LABS: Absolute Lymphocytes (CBC) 1.9 K/uL (0.7-4.9); Hematocrit 44.6 % (39.6-49.0); Lymphocytes % 18.3 % (15.3-44.8); MCV 84.4 fL (80-100); RBC Red Blood Cell Count 5.28 M/uL (4.33-5.43)
[2022-09-10 14:51] LABS: Protime INR 1.04
[2022-09-10 15:03] LABS: Albumin 3.4 g/dL (3.4-5.0); Bilirubin Direct 0.2 mg/dL (0-0.2); Bilirubin Total 0.6 mg/dL (0.2-1.0); Potassium 4.3 mmol/L (3.5-5.1); Protein, Total 7.5 g/dL (6.4-8.2)
[2022-09-10 15:04] LABS: Magnesium 1.4 mg/dL (1.8-2.4); Troponin High Sensitivity 119.7 pg/mL (<58.9)
[2022-09-10] MEDS ORDERED: MAGNESIUM SULFATE 1 gm IVPB 1 GM/100 ML BAG IV ONE (15:30)
--- NOTE | 2022-09-10 15:30 | RAD REPORT ---
EXAM DESCRIPTION: CT - Head Brain Wo Cont - 09/10/2022 3:20 pm CLINICAL HISTORY: Dizziness COMPARISON: 2017 TECHNIQUE: Computed axial tomography of the head was obtained. IV contrast was not requested. All CT scans are performed using dose optimization technique as appropriate and may include automated exposure control or mA/KV adjustment according to patient size. FINDINGS: An intracranial bleed is not seen . The ventricles are normal in caliber. No extra-axial fluid collection is noted. Mild low-density areas within periventricular, deep and subcortical white matter likely represent isc hemic changes secondary to small vessel disease. Old lacunar infarct right basal ganglia Fluid within the sinuses/ mastoids is not seen. IMPRESSION: No acute intracranial abnormality is seen. If patient's symptoms persist MRI of the bra in would be recommended.
--- NOTE | 2022-09-10 15:40 | RAD REPORT ---
EXAM DESCRIPTION: Tung Angio09/10/2022 3:20 pm CLINICAL HISTORY: Dizziness and neck pain COMPARISON: None TECHNIQUE: 50 cc Isovue 370 was administered intravenously. 3D MIP reconstruction performed All CT scans are performed using dose optimization technique as appropriate and may include automated exposure control or mA/KV adjustment according to patient size. FINDINGS: The common carotid, internal carotid and external carotid arteries demonstrate mild plaque . Vertebral arteries are unremarkable. No significant stenosis. No dissection seen Spondylosis involves the cervical spine IMPRESSION: Mild plaque within the carotid arteries. NASCET criteria used. Mild 0-49% stenosis Moderate 50-69% stenosis Severe 70-99% stenosis
--- NOTE | 2022-09-10 15:43 | RAD REPORT ---
EXAM DESCRIPTION: CTHead angio09/10/2022 3:21 pm CLINICAL HISTORY: Dizziness COMPARISON: None TECHNIQUE: CT angiogram of the head was obtained. 3D MIPS reconstruction performed. All CT scans are performed using dose optimization technique as appropriate and may include automated exposure control or mA/KV adjustment according to patient size. FINDINGS: Mild calcified plaque within distal internal carotid arteries The basilar,anterior cerebral, middle cerebral and posterior cerebral arteries do not demonstrate a s ignificant abnormality An aneurysm is not seen A significant stenosis is not noted. IMPRESSION: No significant acute abnormality is displayed
--- NOTE | 2022-09-10 16:15 | ER ---
Nurse's Notes [facility] Name: Kait Anton Age: 67 yrs Sex: Male : 1955 Arrival Date: 09/10/2022 Time: 13:57 Bed 8 Private MD: Yao Watters Diagnosis: Dizziness and giddiness;Vomiting;Chest pain, unspecified Presentation: 09/10 14:13 Chief complaint: Patient states: Has had NV, dizziness and BP issues for two weeks. vg1 Stated has been on Ozempic x 2 months and quit taking it about two weeks ago bc it was causing NV. Pt also stated epigastric pain and neck pain. Coronavirus screen: Vaccine status: Patient reports receiving the 2nd dose of the covid vaccine. Client denies travel out of the [place] in the last 14 days. Ebola Screen: Patient negative for fever greater than or equal to 101.5 degrees Fahrenheit, and additional compatible Ebola Virus Disease symptoms. Initial Sepsis Screen: Does the patient meet any 2 criteria? No. Patient's initial sepsis screen is negative. Does the patient have a suspected source of infection? No. Patient's initial sepsis screen is negative. Risk Assessment: Do you want to hurt yourself or someone else? Patient reports no desire to harm self or others. Onset of symptoms was August 27, 2022. 14:13 Method Of Arrival: Wheelchair vg1 14:13 Acuity: SEA 3 vg1 Triage Assessment: 14:15 General: Appears uncomfortable, Behavior is calm, cooperative. Pain: Complains of pain vg1 in epigastric area and left side of neck Pain currently is 0 out of 10 on a pain scale. Neuro: Level of Consciousness is awake, alert, obeys commands, Oriented to person, place, time, situation, Reports dizziness. Respiratory: Airway is patent Respiratory effort is even, unlabored. GI: Reports nausea, vomiting. Historical: - Allergies: 14:15 Neulasta; vg1 - PMHx: 14:15 Adenocarcinoma - remission; Diabetes - NIDDM; Glaucoma; Hypertension; lung ca- part of vg1 L lung rmoved and re grafted; - Immunization history:: Client reports receiving the 2nd dose of the Covid vaccine. - Social history:: Smoking status: Patient/guardian denies using tobacco, the patient reports quitting approximately 6 years ago. - Family history:: not pertinent. - Hospitalizations: : No recent hospitalization is reported. Vital Signs: 14:13 BP 102 / 68; Pulse 93; Resp 18; Temp 97.8; Pulse Ox 97% on R/A; vg1 15:39 BP 104 / 65; Pulse 85; Resp 15; Pulse Ox 97% ; Weight 128.82 kg; Pain 0/10; jl7 ED Course: 13:57 Patient arrived in ED. mr 13:58 Yao Watters DO is Private Physician. mr 14:03 Arm band placed on Patient placed in an exam room, on a stretcher. ll1 14:05 Jack Howe, DORITA is Primary Nurse. jl7 14:06 Andrés Reed MD is Attending Physician. rn 14:15 Triage completed. vg1 15:22 CT Head Brain wo Cont In Process Unspecified. EDMS 15:[address] In Process Unspecified. EDMS 15:22 Head angio In Process Unspecified. EDMS 16:14 Mainor Rangel MD is Hospitalizing Provider. rn 16:49 SARS RAPID Sent. 1 Administered Medications: 14:35 Drug: Zofran (Ondansetron) 4 mg Route: IVP; Site: right antecubital; jl7 18:07 Follow up: Response: No adverse reaction jl7 14:35 Drug: NS 0.9% 500 ml Route: IV; Rate: bolus; Site: right antecubital; jl7 15:15 Follow up: Response: No adverse reaction; IV Status: Completed infusion; IV Intake: jl7 500ml 15:39 Drug: Magnesium Sulfate 1 grams Route: IVPB; Infused Over: 1 hrs; Site: right jl7 antecubital; 16:40 Follow up: Response: No adverse reaction; IV Status: Completed infusion jl7 Intake: 15:15 IV: 500ml; Total: 500ml. jl7 Outcome: 16:14 Decision to Hospitalize by Provider. rn 18:30 Patient left the ED. 1 Signatures: Dispatcher [employer] Kimberly Diez mr Andrés Reed MD MD rn Leal, Jahala, RN RN jl7 Shayna Clay RN DORITA 1 Tere Guerra RN RN 1
--- NOTE | 2022-09-10 16:15 | EDPHYS ---
Physician Documentation [facility] Name: Kait Anton Age: 67 yrs Sex: Male : 1955 Arrival Date: 09/10/2022 Time: 13:57 Bed 8 Private MD: Yao Watters ED Physician Andrés Reed HPI: 09/10 15:40 This 67 yrs old Black Male presents to ER via Wheelchair with complaints of dizziness. rn 15:40 This 67 yrs old Black Male presents to ER via Wheelchair with complaints of dizziness, rn vomiting. 15:40 The patient presents with dizziness, generalized weakness, lightheadedness. Onset: The rn symptoms/episode began/occurred 2 week(s) ago. Modifying factors: The symptoms are alleviated by holding head still, lying down, the symptoms are aggravated by. 16:06 Associated signs and symptoms: Pertinent positives: chest pain, headache, neck pain, rn Pertinent negatives: ataxia, seizure. Severity of symptoms: At their worst the symptoms were moderate in the emergency department the symptoms are unchanged. The patient has not experienced similar symptoms in the past. The patient has been recently seen by a physician:. Pt reports 2 weeks of intermittent dizziness, vomiting, chest pressure. Seen by PCP and prescribed zofran, helping, but still having dizzy spells. No focal weakness or numbness. No speech problem.. Historical: - Allergies: 14:15 Neulasta; vg1 - PMHx: 14:15 Adenocarcinoma - remission; Diabetes - NIDDM; Glaucoma; Hypertension; lung ca- part of vg1 L lung rmoved and re grafted; - Immunization history:: Client reports receiving the 2nd dose of the Covid vaccine. - Social history:: Smoking status: Patient/guardian denies using tobacco, the patient reports quitting approximately 6 years ago. - Family history:: not pertinent. - Hospitalizations: : No recent hospitalization is reported. ROS: 16:06 Constitutional: Negative for fever, chills, and weight loss, Eyes: Negative for injury, rn pain, redness, and discharge, Neck: + left sided neck pain Cardiovascular: Negative for palpitations, and edema Respiratory: Negative for shortness of breath, cough, wheezing, and pleuritic chest pain, Abdomen/GI: Negative for abdominal pain, diarrhea, and constipation, Back: Negative for injury and pain, MS/Extremity: Negative for injury and deformity, Skin: Negative for injury, rash, and discoloration, Neuro: Negative for weakness, numbness, tingling, and seizure. Exam: 15:08 ECG was reviewed by the Attending Physician. rn 16:06 Constitutional: This is a well developed, well nourished patient who is awake, alert, rn and in no acute distress. Head/Face: Normocephalic, atraumatic. Eyes: Periorbital areas with no swelling, redness, or edema. Neck: Supple, full range of motion without nuchal rigidity, or vertebral point tenderness. No Meningismus. Cardiovascular: Regular rate and rhythm. No pulse deficits. Respiratory: No increased work of breathing, no retractions or nasal flaring. Abdomen/GI: Soft, non-tender Skin: Warm, dry MS/ Extremity: Pulses equal, no cyanosis. Neuro: Awake and alert, GCS 15, oriented to person, place, time, and situation. Cranial nerves II-XII grossly intact. Motor strength 5/5 in all extremities. Sensory grossly intact. Vital Signs: 14:13 BP 102 / 68; Pulse 93; Resp 18; Temp 97.8; Pulse Ox 97% on R/A; vg1 15:39 BP 104 / 65; Pulse 85; Resp 15; Pulse Ox 97% ; Weight 128.82 kg; Pain 0/10; jl7 MDM: 14:06 Patient medically screened. rn 16:06 Differential diagnosis: cardiac arrhythmia, generalized weakness, hypovolemia, rn idiopathic dizziness, TIA, vertigo. Data reviewed: vital signs, nurses notes, lab test result(s), EKG, radiologic studies, CT scan, and as a result, I will admit patient. Counseling: I had a detailed discussion with the patient and/or guardian regarding: the historical points, exam findings, and any diagnostic results supporting the discharge/admit diagnosis, lab results, radiology results, the need for further work-up and treatment in the hospital. Response to treatment: the patient's symptoms have mildly improved after treatment, and as a result, I will admit patient. Admission orders: after a detailed discussion of the patient's condition and case, the admit orders are written by me. 09/10 14:15 Order name: Basic Metabolic Panel; Complete Time: 15:35 rn 09/10 14:15 Order name: CBC with Diff; Complete Time: 15:35 rn 09/10 14:15 Order name: CPK; Complete Time: 15:35 rn 09/10 14:15 Order name: Hepatic Function; Complete Time: 15:35 rn 09/10 14:15 Order name: Magnesium; Complete Time: 15:35 rn 09/10 14:15 Order name: Protime (+inr); Complete Time: 15:35 rn 09/10 14:15 Order name: Ptt, Activated; Complete Time: 15:35 rn 09/10 14:15 Order name: Troponin High Sensitivity; Complete Time: 15:35 rn 09/10 16:19 Order name: SARS RAPID eb 09/10 16:37 Order name: CBC with Automated Diff EDMS 09/10 16:37 Order name: CBC with Automated Diff EDMS 09/10 16:37 Order name: Comprehensive Metabolic Panel EDMS 09/10 16:37 Order name: Comprehensive Metabolic Panel EDMS 09/10 16:37 Order name: Lipid Profile EDMS 09/10 14:15 Order name: CT Head Brain wo Cont; Complete Time: 15:35 rn 09/10 14:15 Order name: EKG; Complete Time: 14:16 rn 09/10 14:15 Order name: Cardiac monitoring; Complete Time: 15:28 rn 09/10 14:15 Order name: EKG - Nurse/Tech; Complete Time: 15:28 rn 09/10 14:15 Order name: IV Saline Lock; Complete Time: 14:51 rn 09/10 14:15 Order name: Labs collected and sent; Complete Time: 14:51 rn 09/10 14:15 Order name: O2 Per Protocol; Complete Time: 15:14 rn 09/10 14:15 Order name: O2 Sat Monitoring; Complete Time: 15:14 rn 09/10 14:15 Order name: Neck Angio CT; Complete Time: 15:57 rn 09/10 15:09 Order name: Head angio; Complete Time: 15:57 EDMS 09/10 16:37 Order name: CONS Physician Consult EDMS 09/10 16:37 Order name: Full Liquid EDMS 09/10 16:37 Order name: Lipid Profile EDMS EC:08 Rate is 89 beats/min. Rhythm is regular. Left axis deviation noted. QRS is positive in rn lead I and negative in lead aVF. FL interval is normal. QRS interval is normal. QT interval is normal. No Q waves. T waves are Normal. No ST changes noted. Clinical impression: NSR w/ Non-specific ST/T Changes. Interpreted by me. Reviewed by me. Administered Medications: 14:35 Drug: Zofran (Ondansetron) 4 mg Route: IVP; Site: right antecubital; jl7 18:07 Follow up: Response: No adverse reaction jl 14:35 Drug: NS 0.9% 500 ml Route: IV; Rate: bolus; Site: right antecubital; jl7 15:15 Follow up: Response: No adverse reaction; IV Status: Completed infusion; IV Intake: jl7 500ml 15:39 Drug: Magnesium Sulfate 1 grams Route: IVPB; Infused Over: 1 hrs; Site: right jl7 antecubital; 16:40 Follow up: Response: No adverse reaction; IV Status: Completed infusion jl7 Disposition Summary: 09/10/22 16:14 Hospitalization Ordered Hospitalization Status: Observation rn Provider: Mainor Rangel rn Location: Telemetry/[facility] (observation) rn Condition: Stable rn Problem: an ongoing problem rn Symptoms: have improved rn Bed/Room Type: Standard rn Room Assignment: 409(09/10/22 17:41) dw Diagnosis - Dizziness and giddiness rn - Vomiting rn - Chest pain, unspecified rn Forms: - Medication Reconciliation Form rn - SBAR form rn Signatures: Dispatcher [employer] Sara Choudhury RN RN dw Andrés Reed MD MD rn Leal, Jahala RN RN jl7 Shayna Clay, RN RN vg1 Corrections: (The following items were deleted from the chart) 17:41 16:14 rn joanie
[2022-09-10] MEDS ORDERED: MORPHINE 2 MG/ML SYR IV PRN (16:31)
[2022-09-10] MEDS ORDERED: ACETAMINOPHEN 500 MG TAB PO PRN (16:31)
[2022-09-10] MEDS ORDERED: ONDANSETRON 4 MG/2 ML VIAL IV PRN (16:31)
--- NOTE | 2022-09-10 16:31 | P.HP ---
Certification for Inpatient Patient admitted to: Observation With expected LOS: <2 Midnights Patient will require the following post-hospital care: None Practitioner: I am a practitioner with admitting privileges, knowledge of patient current condition, hospital course, and medical plan of care. Services: Services provided to patient in accordance with Admission requirements found in Title 42 Section 412.3 of the Code of Federal Regulations Patient History Date of Service: 09/10/22 Reason for admission: Nausea and vomiting/allergic reaction History of Present Illness: Patient is a 67-year-old gentleman who initially came in because of some nausea. Patient felt like he was having allergic reaction. However, patient was worked up and there was no unremarkable findings. He started complaining of chest discomfort. Pain was mainly in the sternal region. His troponins were mildly elevated. Decision was admitted to the hospital for further evaluation. Patient with a history of lung cancer s/p resection. Patient also with a liver mass and is scheduled for a biopsy later this week. Allergies pegfilgrastim [From Neulasta] Allergy (Mild, Verified 09/08/22 07:55) Hives/Rash semaglutide [From Ozempic] Allergy (Verified 09/08/22 07:55) Nausea/Vomiting Home Medications: Aspirin [Aspirin EC 81 MG] 81 mg PO DAILY 07/13/16 Bimatoprost [Lumigan Opthalmic Drops*] 25 drops EACH EYE BID 07/13/16 Brimonidine Tartrate/Timolol [Combigan 0.2%-0.5% Eye Drops] 10 ml EACH EYE BID 07/13/16 Metformin HCl [Glucophage*] 500 mg PO BID 07/13/16 Valsartan/Hydrochlorothiazide [Valsartan-Hctz 320-12.5 mg Tab] 1 each PO DAILY 07/13/16 Brinzolamide [Azopt] 1 drop EACH EYE BID 09/20/16 Amlodipine [Norvasc] 10 mg PO BID 09/08/22 LORazepam [Lorazepam] 0.5 mg PO BID PRN 09/08/22 Meloxicam 15 mg PO DAILYPRN PRN 09/08/22 Metoprolol Tartrate 50 mg PO BID 09/08/22 Rosuvastatin Calcium 20 mg PO BEDTIME 09/08/22 - Past Medical/Surgical History Diabetic: Yes -: glaucoma -: Lung cancer status post lung resection. -: Hypertension -: Diabetes -: Stroke -: Prostatectomy -: Tonsillectomy -: Left lung resection. - Family History Mother Medical History: Hypertension Notes: Colesterol, blood, Cloth Father Medical History: Hypertension, Cancer - Social History Smoking Status: Former smoker Alcohol use: Yes CD- Drugs: No Caffeine use: Yes Review of Systems 10-point ROS is otherwise unremarkable Physical Examination - Vital Signs Temperature: 98 F Blood Pressure: 150/70 Pulse: 80 Respirations: 18 Pulse Ox (%): 95 - Physical Exam General: Alert, In no apparent distress, Oriented x3 HEENT: Atraumatic, PERRLA, Mucous membr. moist/pink, EOMI, Sclerae nonicteric Neck: Supple, 2+ carotid pulse no bruit, No LAD, Without JVD or thyroid abnormality Respiratory: Clear to auscultation bilaterally, Normal air movement Cardiovascular: Regular rate/rhythm, Normal S1 S2, No murmurs Gastrointestinal: Normal bowel sounds, Soft and benign, Non-distended, No tenderness Musculoskeletal: No clubbing, No swelling, No tenderness Integumentary: No rashes Neurological: Normal gait, Normal speech, Normal strength at 5/5 x4 extr, Normal tone, Sensation intact, Cranial nerves 3-12 intact, Normal affect Lymphatics: No axilla or inguinal lymphadenopathy - Studies Laboratory Data (last 24 hrs) 09/10/22 14:33: PT 11.4, INR 1.04, APTT 37.3 H 09/10/22 14:33: WBC 10.60, Hgb 14.2, Hct 44.6, Plt Count 183 09/10/22 14:33: Sodium 135 L, Potassium 4.3, BUN 16, Creatinine 1.41 H, Glucose 121 H, Magnesium 1.4 L*, Total Bilirubin 0.6, AST 30, ALT 37, Alkaline Phosphatase 116 Assessment & Plan - Problems (Diagnosis) (1) Chest pain, rule out acute myocardial infarction Current Visit: Yes Status: Acute (2) History of lung cancer Current Visit: Yes Status: Acute (3) History of stroke Current Visit: Yes Status: Acute (4) Liver lesion Current Visit: Yes Status: Acute (5) DM type 2 (diabetes mellitus, type 2) Current Visit: No Status: Acute (6) Elevated troponin Current Visit: No Status: Acute - Plan -High-sensitivity troponin; repeat -Cardiology consultation -If troponins are stable and if okay with cardiology anticipate discharge in the morning. -Continue with antiemetics; continue tapering dose of prednisone -Lipid profile -[employer] regarding modifying risk for cardiac disease - Advance Directives Does patient have a Living Will: No Does patient have a Durable POA for Healthcare: No - Code Status/Comfort Care Code Status Assessed: Yes Code Status: Full Code Critical Care: No Time Spent Managing PTS Care (In Minutes): 45
[2022-09-10] MEDS ORDERED: ENOXAPARIN 40 MG/0.4 ML SQ SCH (17:00)
[2022-09-10 17:06] LABS: SARS-CoV-2 Antigen Rapid Res Negative (Negative)
[2022-09-10] MEDS: METOPROLOL TAR 25 MG TAB PO SCH (18:00)
[2022-09-10] MEDS: NA CHLORIDE 0.9% 1,000 ML IV SCH (20:18)
[2022-09-10] MEDS ORDERED: ATORVASTATIN 20 MG TAB PO SCH (21:00)
[2022-09-10] MEDS: HYDROCORTISONE SUC 100 MG INJ IV SCH (23:13)
[2022-09-11 00:17] VITALS: O2SAT 94; BMI 36.1
[2022-09-11 04:26] LABS: Absolute Lymphocytes (CBC) 1.6 K/uL (0.7-4.9); Hematocrit 40.4 % (39.6-49.0); Lymphocytes % 17.4 % (15.3-44.8); MCV 83.4 fL (80-100); MPV 9.1 fL (7.6-11.3); RBC Red Blood Cell Count 4.85 M/uL (4.33-5.43)
[2022-09-11 04:34] LABS: Specific Gravity > 1.030 (1.005-1.030); Urine Bacteria <20 /HPF (<20); Urine Bilirubin NEGATIVE (Negative); Urine Blood Negative (Negative); Urine Clarity Clear (Clear); Urine Color Light-Yellow (Yellow); Urine Glucose NEGATIVE (Negative); Urine Mucus Slight /HPF (None Seen); Urine Protein 1+ (Negative); Urine RBC <5 /HPF (None Seen); Urine Urobilinogen Normal (Normal); Urine pH 5.5 (5.0-7.0)
[2022-09-11 04:44] LABS: Albumin 3.2 g/dL (3.4-5.0); Bilirubin Total 0.5 mg/dL (0.2-1.0); Potassium 4.3 mmol/L (3.5-5.1)
[2022-09-11] MEDS: METOPROLOL TAR 25 MG TAB PO SCH (06:13)
[2022-09-11] MEDS: NA CHLORIDE 0.9% 1,000 ML IV SCH (08:57)
[2022-09-11] MEDS: HYDROCORTISONE SUC 100 MG INJ IV SCH (08:59)
[2022-09-11] MEDS ORDERED: ASPIRIN EC 81 MG TAB PO SCH (09:00)
[2022-09-11] MEDS ORDERED: INFLUENZA VACCINE (for 6+ mo) 0.5 ML DOSE IMVAC ONE (10:00)
[2022-09-11 15:18] VITALS: BP 150/70; TEMP 98
--- NOTE | 2022-09-11 15:21 | P.DS ---
Discharge Date: 09/11/22 Disposition: ROUTINE DISCHARGE Discharge Condition: GOOD Reason for Admission: Nausea and vomiting/allergic reaction Consultations: Cardiology - Problems (1) Chest pain, rule out acute myocardial infarction Current Visit: Yes Status: Acute (2) History of lung cancer Current Visit: Yes Status: Acute (3) History of stroke Current Visit: Yes Status: Acute (4) Liver lesion Current Visit: Yes Status: Acute (5) DM type 2 (diabetes mellitus, type 2) Current Visit: No Status: Acute (6) Elevated troponin Current Visit: No Status: Acute Brief History of Present Illness: Patient is a 67-year-old gentleman who initially came in because of some nausea. Patient felt like he was having allergic reaction. However, patient was worked up and there was no unremarkable findings. He started complaining of chest discomfort. Pain was mainly in the sternal region. His troponins were mildly elevated. Decision was admitted to the hospital for further evaluation. Patient with a history of lung cancer s/p resection. Patient also with a liver mass and is scheduled for a biopsy later this week. Vital Signs/Physical Exam: Temp Pulse Resp BP Pulse Ox 98 F 80 18 150/70 H 95 09/11/22 15:18 09/11/22 15:18 09/11/22 15:18 09/11/22 15:18 09/11/22 15:18 General: Alert, In no apparent distress, Oriented x3 Laboratory Data at Discharge: WBC 9.30 K/uL (4.3-10.9) 09/11/22 03:54 Hgb 13.2 g/dL (13.6-17.9) L 09/11/22 03:54 Hct 40.4 % (39.6-49.0) 09/11/22 03:54 Plt Count 178 K/uL (152-406) 09/11/22 03:54 PT 11.4 SECONDS (9.5-12.5) 09/10/22 14:33 INR 1.04 09/10/22 14:33 APTT 37.3 SECONDS (24.3-36.9) H 09/10/22 14:33 Sodium 136 mmol/L (136-145) 09/11/22 03:54 Potassium 4.3 mmol/L (3.5-5.1) 09/11/22 03:54 BUN 16 mg/dL (7-18) 09/11/22 03:54 Creatinine 1.20 mg/dL (0.55-1.3) 09/11/22 03:54 Glucose 122 mg/dL (74-106) H 09/11/22 03:54 Magnesium 1.4 mg/dL (1.8-2.4) L* 09/10/22 14:33 Total Bilirubin 0.5 mg/dL (0.2-1.0) 09/11/22 03:54 AST 29 U/L (15-37) 09/11/22 03:54 ALT 33 U/L (12-78) 09/11/22 03:54 Alkaline Phosphatase 106 U/L (45-117) 09/11/22 03:54 Triglycerides 90 mg/dL (<150) 09/11/22 03:54 Cholesterol 106 mg/dL (<200) 09/11/22 03:54 HDL Cholesterol 41 mg/dL (40-60) 09/11/22 03:54 Cholesterol/HDL Ratio 2.59 09/11/22 03:54 Home Medications: Aspirin [Aspirin EC 81 MG] 81 mg PO DAILY 07/13/16 Bimatoprost [Lumigan Opthalmic Drops*] 25 drops EACH EYE BID 07/13/16 Brimonidine Tartrate/Timolol [Combigan 0.2%-0.5% Eye Drops] 10 ml EACH EYE BID 07/13/16 Metformin HCl [Glucophage*] 500 mg PO BID 07/13/16 Valsartan/Hydrochlorothiazide [Valsartan-Hctz 320-12.5 mg Tab] 1 each PO DAILY 07/13/16 Brinzolamide [Azopt] 1 drop EACH EYE BID 09/20/16 Amlodipine [Norvasc*] 10 mg PO BID 09/08/22 LORazepam [Lorazepam] 0.5 mg PO BID PRN 09/08/22 Meloxicam 15 mg PO DAILYPRN PRN 09/08/22 Metoprolol Tartrate 50 mg PO BID 09/08/22 Rosuvastatin Calcium 20 mg PO BEDTIME 09/08/22 Magnesium Chloride [Slow-Mag] 64 mg PO DAILY #30 tab 09/11/22 predniSONE [Deltasone] 20 mg PO BID #11 tab 09/11/22 New Medications: predniSONE [Deltasone] 20 mg PO BID #11 tab Magnesium Chloride [Slow-Mag] 64 mg PO DAILY #30 tab Physician Discharge Instructions: -DC IV and DC home -Follow-up with PCP in 1 to 2 weeks -Follow-up with Cardiology in 1 to 2 weeks -Please call Dr. Rangel at [phone] if any questions regarding hospital stay -Please call nursing station at [phone] if any nursing or medication questions -Return to the emergency room if symptoms worsen Diet: AHA Activity: Fall precautions Followup: Yao Watters, [Primary Care Provider] - Time spent managing pt's care (in minutes): 35
--- NOTE | 2022-09-12 18:29 | CON ---
Date of Consultation: 09/11/2022 Reason For Consultation: Hypotension, chest pain, and headache. History Of Present Illness: Mr. Anton is a 67-year-old male. Has a history of lung cancer with po ssible liver metastatic disease. Has a biopsy scheduled on September 15, 2022. He has a history of hy pertension, diabetes. Came in with atypical chest pain, sharp, stabbing, worse with movement and herman athing. Denied any nausea, vomiting, diaphoresis, PND, orthopnea, pedal edema, palpitations, or sync ope. His troponin was 119, creatinine 1.41, magnesium 1.4. He had a negative head CT. Neck CT modesta ogram was negative as well. Review of Systems: Positive for headache and low blood pressure. Social History: Negative. Family History: Noncontributory. Allergies: HE IS ALLERGIC TO MEDICATION CALLED SEMAGLUTIDE AND ANOTHER MEDICINE AND I WAS FELT THAT IS PEGFILGRASTIM, I AM NOT SO SURE WHAT THESE ARE. Medications: At home include Crestor, Norvasc, aspirin, valsartan with hydrochlorothiazide, metformi n, metoprolol, and lorazepam. Physical Examination: General: When I saw him, he had no chest pain, but still complained of headache. Vital Signs: Stable. He was afebrile. HEENT: Negative. Neck: Supple with no bruit. Chest: Clear to auscultation and percussion. Cardiac: Revealed a regular rhythm and rate. S4 gallops. No murmurs or rubs. Abdomen: Benign. Extremities: Revealed no clubbing, cyanosis, or edema. Diagnostic Data: As stated earlier. Also noted that Dr. Shade Pelletier performed a heart catheterizat ion on him in January 2020. He had a normal echocardiogram. 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 Impression And Plan: Elevated troponin secondary to demand ischemia from low magnesium and elevated creatinine. This is not an acute coronary syndrome. He had low blood pressure that may have contrib uted to his troponin being elevated. I do not think he needs any cardiac workup at this point, but h e further should have an echocardiogram and Lexiscan as an outpatient. I will continue his present r egimen at home except we should probably consider holding the valsartan with hydrochlorothiazide as h is creatinine is elevated and he is occasionally hypotensive. His other problems including diabetes are stable. He has lung cancer with liver biopsy planned on 09/15/2022. I think he is cleared to un dergo his biopsy and he should go home soon after that has been done. Case was discussed with Dr. Kathleen raines. ANANTH/TEENA Voice ID: [id number] Report ID: [id number]
--- NOTE | 2022-09-13 08:33 | EKG ---
Test Date: 2022-09-10 Test Time: 14:43:07 Per Diem Physical Therapist: ANA MEASUREMENT RESULTS: Intervals: Rate: 86 OH: 162 QRSD: 88 QT: 364 QTc: 435 Panora: P: 70 OH: 162 QRS: -39 T: 97 INTERPRETIVE STATEMENTS: Normal sinus rhythm Left axis deviation Abnormal QRS-T angle, consider primary T wave abnormality Abnormal ECG Compared to ECG 12/10/2019 12:11:37 Left-axis deviation now present T-wave abnormality still present Electronically Signed On 09-13-22 08:29:32 GEAR FINISHER by Bronson Cedeno
--- NOTE | 2022-09-13 12:17 | EKG ---
Test Date: 2022-09-10 Test Time: 14:43:38 Brim Flexer: ANA MEASUREMENT RESULTS: Intervals: Rate: 89 ND: 154 QRSD: 86 QT: 366 QTc: 445 [place]: P: 67 ND: 154 QRS: -39 T: 96 INTERPRETIVE STATEMENTS: Normal sinus rhythm Left axis deviation Abnormal QRS-T angle, consider primary T wave abnormality Abnormal ECG Compared to ECG 09/10/2022 14:43:07 No significant changes Electronically Signed On 09-13-22 12:13:32 METAL FURNACE OPERATOR by Shreyas Simms
== END 2022-09-11 16:12 | disposition home or self-care (01) ==
LOC: ER 13:53 → ERHOLD 16:31 → 4TH 18:06
PROVIDERS: ADMIT Hospitalist; ATTEND Hospitalist
DX: R07.9 Chest pain, unspecified (principal); I95.9 Hypotension, unspecified; I24.8 Other forms of acute ischemic heart disease; E11.9 Type 2 diabetes mellitus without complications; R16.0 Hepatomegaly, not elsewhere classified; R77.8 Other specified abnormalities of plasma proteins; Z86.73 Personal history of transient ischemic attack (TIA), and cerebral infarction without residual deficits; Z85.118 Personal history of other malignant neoplasm of bronchus and lung; Z88.8 Allergy status to other drugs, medicaments and biological substances; Z20.822 Contact with and (suspected) exposure to COVID-19; Z87.891 Personal history of nicotine dependence; Z82.49 Family history of ischemic heart disease and other diseases of the circulatory system; R11.2 Nausea with vomiting, unspecified; Z23 Encounter for immunization
CPT/HCPCS: 96365; 96361; 85025 ×2; 81001; 80048; 36415; 83735; 82550; 85610; 80061; 82947; 80076; 85730; 84484 ×2; 80053; 70450; 70496; 70498; 96375; 99283; 87811; Q9967; J3475; J7040; J7030 ×2; J1720 ×2; J2405 ×2; 93005; G0378

== ENCOUNTER → 2022-09-15 | Day surgery (SDC) | payer MEDICARE ==
[~2022-09-15] MED LIST: FENTANYL CITR 100 MCG/2 ML ONE; FLUMAZENIL 0.1 MG/ML (5 mL VIAL) IV ONE; MIDAZOLAM HCL 2 MG/2 ML INJ ONE; NALOXONE 0.4 MG/ML VIAL ONE
[2022-09-15 09:59] VITALS: BMI 36.4
--- NOTE | 2022-09-15 10:25 | RAD REPORT ---
EXAM DESCRIPTION: US - Liver Biopsy Procedure - 09/15/2022 10:16 am CLINICAL HISTORY: LIVER BX COMPARISON: Abdomen W/Wo Contrast dated 08/24/2022 FINDINGS: Preoperative diagnosis: Liver masses. Post operative diagnosis: Same. Conscious Sedation: 30 minutes of [id number] time. 3 milligram Versed and 150 mcg Fentanyl administ ered. Fluoroscopy time: None Contrast used: None Estimated blood loss: Minimal Specimens:2x 18 gauge core samples of the mass at the junction of the right and left hepatic lobes. IMPRESSION: Technically successful ultrasound-guided core biopsy of a suspicious mass in the liver. No immediate complications. Conscious sedation was utilized.
[2022-09-15 13:41] VITALS: BP 114/58; O2SAT 98
[2022-09-15 14:28] VITALS: TEMP 99
== END ==
LOC: DS 07:44
PROVIDERS: ATTEND Radiology Radiation Oncology
DX: C22.7 Other specified carcinomas of liver (principal)
CPT/HCPCS: 88307; 47000; J2250; J3010; J2310